=== PATIENT | female | born 1975 | race Caucasian/White ===

== ENCOUNTER 2018-01-20 06:21 | Day surgery (SDC) | payer OTHER ==
[~2018-01-20 06:21] MED LIST: Buffered Lidocaine 0.9% SYRIN* 5 ML/SYR SYRINGE INTRADERM ONE; Dexamethasone IV* 4 MG/ML 1 ML (4 MG) IV SLOW PU ONE; Famotidine IV* 10 MG/ML 2 ML (20 mg) IV ONE
[2018-01-20] MEDS ORDERED: Famotidine IV* 10 MG/ML 2 ML (20 mg) ONE (06:35)
[2018-01-20] MEDS ORDERED: Dexamethasone IV* 4 MG/ML 1 ML (4 MG) ONE (06:35)
[2018-01-20] MEDS ORDERED: fentaNYL* 50 MCG/ML 2 ML VIAL (100 MCG VIAL) ONE ×3 (07:17→08:24)
[2018-01-20] MEDS ORDERED: Midazolam* 1 MG/ML 2 ML VIAL (2 MG) ONE (07:17)
[2018-01-20] MEDS ORDERED: Propofol* 10 MG/ML 20 ML BTL IV PUSH ONE (07:48)
[2018-01-20] MEDS ORDERED: Ondansetron INJ* 2 MG/ML VIAL ONE (07:48)
[2018-01-20] MEDS ORDERED: Phenylephrine IV* 40 MCG/ML 10 ML SYRINGE ONE (07:48)
[2018-01-20] MEDS ORDERED: Ketorolac INJ* 30 MG/ML 1 ML VIAL ONE (07:48)
[2018-01-20] MEDS ORDERED: Naloxone* 0.4 MG/ML 1 ML VIAL IV PRN ×2 (08:10→08:33)
[2018-01-20] MEDS ORDERED: DiMENhydriNATE IV* 50 MG/ML VIAL IV PUSH PRN (08:10)
[2018-01-20] MEDS: fentaNYL* 50 MCG/ML 2 ML VIAL (100 MCG VIAL) IV PRN ×4 (08:16→08:31)
[2018-01-20] MEDS ORDERED: oxyCODONE/Acetamin 5/325 MG* TAB ONE (08:32)
[2018-01-20] MEDS ORDERED: HYDROmorphone INJ* 2 MG/ML CARPUJECT SYRINGE ONE (08:32)
[2018-01-20] MEDS ORDERED: HYDROmorphone INJ* 1 MG/ML CARPUJECT SYRINGE IV PRN (08:33)
[2018-01-20 10:02] VITALS: BP 100/54
--- NOTE | 2018-01-20 21:42 | OP ---
DATE OF OPERATION: 01/20/18 - [facility] DATE OF : 71 SURGEON: Rogerio Fernandes MD ANESTHESIA: General endotracheal. PRE-OP DIAGNOSIS: Menorrhagia. POST-OP DIAGNOSIS: Menorrhagia. OPERATIVE PROCEDURE: D and C, hysteroscopy and endometrial ablation. COMPLICATIONS: None. FINDINGS: On exam under anesthesia, the uterus was retroverted, sounded to 8.5 cm. The endocervix sounded to 2.5 cm, cavity length was 6 cm. The cavity appeared normal with no polyps or fibroids on hysteroscopy. DESCRIPTION OF PROCEDURE: The patient identified, procedure identified as a D and C, hysteroscopy and endometrial ablation. The patient was taken to the operating room and prepped and draped in the usual fashion in the dorsal lithotomy position under general anesthesia. Two single-toothed tenaculum's were placed on the anterior lip of the cervix. Again, the cervix was sounded to 8.5 cm. Endocervix was sounded to 2.5. The hysteroscope was inserted. The above findings were noted. The cervix was easily dilated up to a number #8 Hegar dilator. A sharp curette was inserted and sharp curettage performed until a gritty sensation was felt throughout the circumference. The NovaSure device was opened. The ray was checked. The device was placed in the uterine cavity with a 4.5 manipulated to about 5. The CO2 perforation test was performed and the device passed. The NovaSure device was enabled and with power setting of 165, NovaSure ablation took place for 48 seconds. At the end of the procedure, the hysteroscope was reinserted and a good ablation was noted throughout the cavity. All instruments removed from the vagina. Good hemostasis was verified and patient returned to recovery room in stable condition. All sponge and instrument counts were correct. [id number]/[facility] #: [id number] [facility]
== END 2018-01-20 10:30 | disposition home or self-care (01) ==
LOC: OR 06:21
PROVIDERS: ATTEND Obstetrics & Gynecology
DX: N92.0 Excessive and frequent menstruation with regular cycle (principal); Z85.41 Personal history of malignant neoplasm of cervix uteri; F41.9 Anxiety disorder, unspecified
CPT/HCPCS: 88305; A9270-GY; J1100; J1170; J1885; J2250; J2405; J2704; J3010

== ENCOUNTER 2019-07-24 19:40 | Emergency (ER) | payer OTHER ==
[2019-07-24 19:53] VITALS: BP 120/70
--- NOTE | 2019-07-24 20:03 | UC ---
Abdominal Pain Female HPI - HPI Summary HPI Summary: The patient is a 43-year-old female with a gradual onset of right lower quadrant abdominal pain that started yesterday. Her pain significantly worsened during the course of today. This afternoon her pain markedly intensified and has been associated with nausea and vomiting. She notes that the pain is worse when she walks or attempts to straighten up completely. She has not had any fever or chills. She denies any UTI symptoms. She does feel a little bloated. no back or flank pain. She has had a history of ovarian cysts. She still has her appendix and gallbladder. She denies any chest pain or shortness of breath. - History of Current Complaint Chief Complaint: UCAbdominalPain Stated Complaint: ABDOMINAL PAIN Time Seen by Provider: 07/24/19 19:51 Hx Obtained From: Patient Hx Last Menstrual Period: 06/30/13 Onset/Duration: Gradual Onset, Lasting Hours Timing: Constant Severity Initially: Mild Severity Currently: Severe Pain Intensity: 9 Pain Scale Used: 0-10 Numeric Location: Discrete At: RLQ Radiates: Yes Character: Colicy, Cramping Aggravating Factor(s): Movement Alleviating Factor(s): Nothing Associated Signs and Symptoms: Positive: Decreased Appetite, Nausea, Vomiting. Negative: Diaphoresis, Fever, Cough, Chest Pain, Dizzy, Back Pain, Constipation , Blood in Stool, Urinary Symptoms, Vaginal Bleeding, Vaginal Discharge, Diarrhea Female Torso: 1 - pain Allergies/Adverse Reactions: Allergies Allergy/AdvReac Type Severity Reaction Status Date / Time amoxicillin Allergy Intermediate Dizziness Verified 07/24/19 19:53 Home Medications: Home Medications Ascorbic Acid [Vitamin C] 1 tab PO DAILY 07/24/19 [History Confirmed 07/24/19] Calcium Carbonate [Calcium] 1 tab PO DAILY 07/24/19 [History Confirmed 07/24/19] Multivit-Min/Folic Acid/Biotin [Hair, Skin and Nails Caplet] 1 tab PO DAILY 05/05 [History Confirmed 07/24/19] Simethicone [Gas-X] 250 mg PO ONCE PRN 07/24/19 [History Confirmed 07/24/19] PMH/Surg Hx/FS Hx/Imm Hx Previously Healthy: Yes Cancer History: Cervical Cancer - Surgical History Surgical History: Yes Surgery Procedure, Year, and Place: 1996--TMJ SX. 1996--ECTOPIC / LAPRASCOPIC SX [facility] [place]. 1997 ACL LEFT RECONSTRUCTION SX [facility] [place] DR. WILLIS. LEEP PROCEDURES X 4 2007 CERVICAL CA [facility] [place]. 2011--LUMPECTOMY (BENIGN) RIGHT BREAST. TUBAL LIGATION 2004. LEFT INNER THIGH TUMOR REMOVED X 2 DR BENAVIDEZ 2005. RHINOPLASTY/SEPTOPLASTY 2006. RECONSTRUCTION SURGERY ON CHEEK BONES FROM ACCIDENT, 2013 - DR. KLEIN OFFICE. CERVICAL ABLASION DECEMBER 2017 - Family History Known Family History: Positive: Hypertension - Social History Alcohol Use: Weekly Alcohol Amount: 5-6 DRINKS WEEKLY Substance Use Type: None Smoking Status (MU): Never Smoked Tobacco Review of Systems All Other Systems Reviewed And Are Negative: Yes Constitutional: Positive: Negative Skin: Positive: Negative Eyes: Positive: Negative ENT: Positive: Negative Respiratory: Positive: Negative Cardiovascular: Positive: Negative Gastrointestinal: Positive: Abdominal Pain, Vomiting, Nausea Motor: Positive: Negative Neurovascular: Positive: Negative Musculoskeletal: Positive: Negative Neurological: Positive: Negative Psychological: Positive: Negative Physical Exam Triage Information Reviewed: Yes Appearance: Pain Distress, Thin Vital Signs: Initial Vital Signs Temp 98.3 F 07/24/19 19:48 Pulse 68 07/24/19 19:48 Resp 18 07/24/19 19:48 BP 120/70 07/24/19 19:48 Pulse Ox 100 07/24/19 19:48 Vital Signs Reviewed: Yes Eyes: Positive: Conjunctiva Clear ENT: Positive: Hearing grossly normal, Uvula midline. Negative: Nasal congestion, Nasal drainage, Tonsillar exudate, Trismus, Muffled voice, Hoarse voice Dental Exam: Normal Neck: Positive: Supple, Nontender, No Lymphadenopathy Respiratory: Positive: Lungs clear, Normal breath sounds, No respiratory distress, Respiratory distress Cardiovascular: Positive: RRR, No Murmur, Pulses Normal Abdomen Description: Positive: No Organomegaly, Guarding, McBurney's Point Tenderness, Other: - markedly tender RLQ, + heal tap. Negative: Nontender, CVA Tenderness (R), CVA Tenderness (L), Distended Bowel Sounds: Positive: Present Musculoskeletal: Positive: ROM Intact, No Edema Neurological: Positive: Alert, Muscle Tone Normal Psychological Exam: Normal Skin Exam: Normal Diagnostics - Laboratory Lab Results: UA-for WBC,-RBCs Abd Pain Female Course/Dx - Course Course Of Treatment: I suggested starting an IV and giving antiemetic and analgesic and transferring patient by EMS The patient refused She did desire zofran OTD but her left with her before it could be pulled from [facility] I explained to both and that she needed more work up than we could do here Discussed possiblity of appendicitis or ovarian cyst/gynecological issue - Differential Dx/Diagnosis Provider Diagnosis: Right lower quadrant abdominal pain Discharge ED - Sign-Out/Discharge Documenting (check all that apply): Patient Departure All imaging exams completed and their final reports reviewed: No Studies - Discharge Plan Condition: Guarded Disposition: TRANS HIGHER LVL OF CARE FAC Referrals: Yas Chavez MD [Primary Care Provider] - Additional Instructions: please go directly to the ER for evaluation of your right lower quadrant abdominal pain don't attempt to eat or drink enroute - Billing Disposition and Condition Condition: GUARDED Disposition: Trans Higher Lvl of Care Fac
[2019-07-24] MEDS ORDERED: Ondansetron ODT TAB* 4 MG PO ONE (20:15)
== END 2019-07-24 20:20 | disposition short-term general hospital (02) ==
LOC: UCEAST 19:40
DX: R10.31 Right lower quadrant pain (principal); R11.2 Nausea with vomiting, unspecified; N83.202 Unspecified ovarian cyst, left side; N83.201 Unspecified ovarian cyst, right side; Z85.41 Personal history of malignant neoplasm of cervix uteri; Z88.0 Allergy status to penicillin
CPT/HCPCS: 81003; 84702; 99212; A9270-GY; G0463

== ENCOUNTER 2019-07-24 20:34 | Emergency (ER) | payer OTHER ==
[2019-07-24 21:34] LABS: ABS Eosinophils 0.1 10^3/ul (0-0.6); ABS Lymphocytes 1.8 10^3/ul (1.0-4.8); ABS Monocytes 0.6 10^3/ul (0-0.8); ABS Neutrophils 8.5 10^3/ul (1.5-7.7); Eosinophil % 1.3 %; Hematocrit 39 % (35-47); Hemoglobin 13.8 g/dL (12.0-16.0); Lymphocyte % 16.5 %; Mean Corpuscular HGB Conc 35 g/dL (31-36); Mean Corpuscular Hemoglobin 31 pg (27-31); Mean Corpuscular Volume 90 fL (80-97); Mean Platelet Volume 7.4 fL (7.4-10.4); Platelet Count 227 10^3/uL (150-450); Red Blood Count 4.38 10^6 /uL (3.70-4.87); Red Cell Distribution Width 13 % (10-15); White Blood Count 11.1 10^3/uL (3.5-10.8)
[2019-07-24 21:52] LABS: ALT 24 U/L (7-52); AST 23 U/L (13-39); Albumin 4.3 g/dL (3.2-5.2); Albumin/Globulin Ratio 1.7 (1-3); Alkaline Phosphatase 31 U/L (34-104); Anion Gap 7 mmol/L (2-11); BUN/Creatinine Ratio 16.5 (8-20); Blood Urea Nitrogen 13 mg/dL (6-24); C Reactive Protein < 1.00 mg/L (<8.01); CO2 Carbon Dioxide 28 mmol/L (22-32); Calcium 9.5 mg/dL (8.6-10.3); Chloride 103 mmol/L (101-111); EGFR African American 95.2 (>60); EGFR Non-African American 78.7 (>60); Globulin 2.5 g/dL (2-4); Glucose 89 mg/dL (70-100); Potassium 3.7 mmol/L (3.5-5.0); Sodium 138 mmol/L (135-145); Total Protein 6.8 g/dL (6.4-8.9)
[2019-07-24] MEDS ORDERED: Morphine 4 MG/ML VIAL (1 ml) 4 MG/ML VIAL IV ONE (22:38)
[2019-07-24] MEDS ORDERED: NS 0.9% 1000 ML** 1,000 ML IV ONE (22:38)
[2019-07-24] MEDS ORDERED: Ondansetron INJ* 2 MG/ML VIAL IV ONE (22:38)
[2019-07-24] MEDS ORDERED: Iohexol 300* (CONTRAST) 10 ML SDV IV ONE (23:26)
--- NOTE | 2019-07-24 23:26 | ED ---
Abdominal Pain/Female - HPI Summary HPI Summary: Pt is a 43 y/o F presenting to the ED with a chief complaint of abdominal pain initially onset yesterday in the RLQ. Yesterday, the pain was mild enough that she went on a 5 mile run. She thought it may have been related to her menstrual cycle. As of today, the pain is much worse. She thought it could have been gas, but she experienced acute severe pain in the RLQ today. She is also feeling very full, bloated, and nauseous. She also reports vomiting. She denies diarrhea , constipation, vaginal bleeding or discharge, dysuria, hematuria, or hx of HTN or DM. Pt still has her appendix. - History of Current Complaint Chief Complaint: EDAbdPain Stated Complaint: ABD PAIN PER PT Time Seen by Provider: 07/24/19 22:27 Hx Obtained From: Patient Hx Last Menstrual Period: 06/30/13 ?: No - tubal ligation 2002 Onset/Duration: Gradual Onset, Lasting Days, Still Present, Worse Since - today Timing: Constant Severity Initially: Moderate Severity Currently: Severe Pain Intensity: 9 Pain Scale Used: 0-10 Numeric Location: Discrete At: RLQ Radiates: No Character: Cramping Aggravating Factor(s): Nothing Alleviating Factor(s): Nothing Associated Signs and Symptoms: Positive: Nausea, Vomiting. Negative: Constipation, Urinary Symptoms, Vaginal Bleeding, Vaginal Discharge, Diarrhea Allergies/Adverse Reactions: Allergies Allergy/AdvReac Type Severity Reaction Status Date / Time amoxicillin Allergy Intermediate Dizziness Verified 07/24/19 23:05 PMH/Surg Hx/FS Hx/Imm Hx Previously Healthy: Yes Endocrine/Hematology History: Denies: Hx Diabetes Cardiovascular History: Reports: Other Cardiovascular Problems/Disorders - HX OF SWELLING WITH TRAVEL IN BILATERAL FEET AND LEGS Denies: Hx Hypertension, Hx Pacemaker/ICD Respiratory History: Denies: Hx Asthma GI History: Reports: Hx Irritable Bowel - OCCASIONAL Denies: Other GI Disorders History: Denies: Hx Dialysis, Hx Renal Disease Musculoskeletal History: Reports: Hx Tendonitis - PATIENT STATES POSSIBLY 20 YEARS AGO, Other Musculoskeletal History - ALIGNMENT PROBLEMS WITH RIGHT HIP AND BACK Sensory History: Reports: Hx Contacts or Glasses - GLASSES FOR READING Denies: Hx Hearing Aid Opthamlomology History: Reports: Hx Contacts or Glasses - GLASSES FOR READING Psychiatric History: Reports: Hx Anxiety - uses meds prn Denies: Hx Panic Disorder - Cancer History Cancer Type, Location and Year: cervical ca Hx Chemotherapy: Yes - CERVICAL 2008 3 ROUNDS PLUS LEEPS Hx Radiation Therapy: No - Surgical History Surgery Procedure, Year, and Place: 1996--TMJ SX. 1996--ECTOPIC / LAPRASCOPIC SX [facility] [place]. 1997 ACL LEFT RECONSTRUCTION SX [facility] [place] DR. WILLIS. LEEP PROCEDURES X 4 2007 CERVICAL CA [facility] [place]. 2011--LUMPECTOMY (BENIGN) RIGHT BREAST. TUBAL LIGATION 2004. LEFT INNER THIGH TUMOR REMOVED X 2 DR BENAVIDEZ 2005. RHINOPLASTY/SEPTOPLASTY 2006. RECONSTRUCTION SURGERY ON CHEEK BONES FROM ACCIDENT, 2013 - DR. KLEIN OFFICE. CERVICAL ABLASION DECEMBER 2017 Hx Anesthesia Reactions: No Infectious Disease History: No Infectious Disease History: Denies: Traveled Outside the [place] in Last 30 Days - Family History Known Family History: Positive: Hypertension - Social History Alcohol Use: Weekly Alcohol Amount: drinks 5 out of 7 days, 2 drinks each time Hx Substance Use: No Substance Use Type: Reports: None Hx Tobacco Use: No Smoking Status (MU): Never Smoked Tobacco Review of Systems Positive: Abdominal Pain, Vomiting, Nausea. Negative: Diarrhea, Other - constipation Negative: dysuria, discharge - vaginal, hematuria, other - vaginal bleeding All Other Systems Reviewed And Are Negative: Yes Physical Exam - Summary Physical Exam Summary: Constitutional: Well-developed, Well-nourished, Alert. (-) Distressed Skin: Warm, Dry HENT: Normocephalic; Atraumatic Eyes: Conjunctiva normal Neck: Musculoskeletal ROM normal neck. (-) JVD, (-) Stridor, (-) Tracheal deviation Cardio: Rhythm regular, rate normal, Heart sounds normal; Intact distal pulses; Radial pulses are 2+ and symmetric. (-) Murmur Pulmonary/Chest wall: Effort normal. (-) Respiratory distress, (-) Wheezes, (-) Rales Abd: Soft, Diffuse tenderness, worse in the RLQ. (-) Distension, (-) Guarding, ( -) Rebound Musculoskeletal: (-) Edema Lymph: (-) Cervical adenopathy Neuro: Alert, Oriented x3 Psych: Mood and affect Normal Triage Information Reviewed: Yes Vital Signs On Initial Exam: Initial Vitals Temp Pulse Resp BP Pulse Ox 98.7 F 69 19 142/79 100 07/24/19 20:49 07/24/19 20:49 10/07/19 20:49 07/24/19 20:49 07/24/19 20:49 Vital Signs Reviewed: Yes Procedures - Sedation Patient Received Moderate/Deep Sedation with Procedure: No Diagnostics - Vital Signs Vital Signs Temp Pulse Resp BP Pulse Ox 07/24/19 22:47 18 07/24/19 20:49 98.7 F 69 19 142/79 100 - Laboratory Lab Results: Lab Results 07/24/19 07/24/19 07/24/19 Range/Units 21:27 21:27 21:27 WBC 11.1 H (3.5-10.8) 10^3/uL RBC 4.38 (3.70-4.87) 10^6 /uL Hgb 13.8 (12.0-16.0) g/dL Hct 39 (35-47) % MCV 90 (80-97) fL MCH 31 (27-31) pg MCHC 35 (31-36) g/dL RDW 13 (10-15) % Plt Count 227 (150-450) 10^3/uL MPV 7.4 (7.4-10.4) fL Neut % (Auto) 76.5 % Lymph % (Auto) 16.5 % [place] % (Auto) 5.4 % Eos % (Auto) 1.3 % Baso % (Auto) 0.3 % Absolute Neuts (auto) 8.5 H (1.5-7.7) 10^3/ul Absolute Lymphs (auto) 1.8 (1.0-4.8) 10^3/ul Absolute Monos (auto) 0.6 (0-0.8) 10^3/ul Absolute Eos (auto) 0.1 (0-0.6) 10^3/ul Absolute Basos (auto) 0.0 (0-0.2) 10^3/ul Absolute Nucleated RBC 0.0 10^3/ul Nucleated RBC % 0.0 Sodium 138 (135-145) mmol/L Potassium 3.7 (3.5-5.0) mmol/L Chloride 103 (101-111) mmol/L Carbon Dioxide 28 (22-32) mmol/L Anion Gap 7 (2-11) mmol/L BUN 13 (6-24) mg/dL Creatinine 0.79 (0.51-0.95) mg/dL Est GFR ( Amer) 95.2 (>60) Est GFR (Non-Af Amer) 78.7 (>60) BUN/Creatinine Ratio 16.5 (8-20) Glucose 89 (70-100) mg/dL Lactic Acid 0.8 (0.5-2.0) mmol/L Calcium 9.5 (8.6-10.3) mg/dL Total Bilirubin 0.60 (0.2-1.0) mg/dL AST 23 (13-39) U/L ALT 24 (7-52) U/L Alkaline Phosphatase 31 L (34-104) U/L C-Reactive Protein < 1.00 (<8.01) mg/L Total Protein 6.8 (6.4-8.9) g/dL Albumin 4.3 (3.2-5.2) g/dL Globulin 2.5 (2-4) g/dL Albumin/Globulin Ratio 1.7 (1-3) Lipase 19 (11.0-82.0) U/L Result Diagrams: 07/24/19 21:27 07/24/19 21:27 Lab Statement: Any lab studies that have been ordered have been reviewed, and results considered in the medical decision making process. - CT CT a/p CT Interpretation Completed By: Radiologist Summary of CT Findings: No acute findings. ED physician has reviewed this report. Re-Evaluation - Re-Evaluation 1st re-eval Re-Evaluation Time: 01:35 Change: Unchanged Comment: On further questioning, pt has had this pain on and off for the past 5 years. She has seen an [facility], GI physician, and the only thing that has worked has been physical therapy. Abdominal Pain Fem Course/Dx - Course Course Of Treatment: Patient is here with right lower quadrant pain. Patient's pain has been constant for 24 hours and is not consistent with ovarian torsion. Patient had blood work performed which was grossly unremarkable. Patient is CT scan which showed no abnormality. Upon reexamination, patient states that she's had this pain off and on for 5 years and has been seen by multiple doctors with no etiology. Patient was encouraged to follow up with her physical therapist as that wasn't only thing that helps her with her symptoms. - Diagnoses Provider Diagnoses: RLQ abdominal pain Discharge ED - Sign-Out/Discharge Documenting (check all that apply): Patient Departure - Discharge Plan Condition: Stable Disposition: HOME Prescriptions: Acetaminophen with Codeine [Acetaminophen-Cod #3 Tablet] 1 each PO Q8HR #12 tablet MDD 3 tablets Dicyclomine CAP* [Bentyl CAP*] 10 mg PO TID PRN #20 cap PRN Reason: abdominal cramping Ondansetron TAB* [Zofran 4 MG Tab*] 4 mg PO Q8HR PRN #12 tab PRN Reason: Vomiting Patient Education Materials: Abdominal Pain (ED) Referrals: Yas Chavez MD [Primary Care Provider] - Additional Instructions: Follow up with your primary care doctor in 1-3 days. Take Ibuprofen for pain as needed. Start taking your medications we prescribed to you here. Come back to the emergency department with any new or worsening symptoms. - Billing Disposition and Condition Condition: STABLE Disposition: Home - Attestation Statements Document Initiated by Joaquinibe: Yes Documenting Scribe: Lakshmi Wagner Provider For Whom Matilde is Documenting (Include Credential): Elpidio Dsouza MD. Scribe Attestation: Lakshmi Yanes, joaquinibed for Elpidio Dsouza MD. on 07/25/19 at 0437. Scribe Documentation Reviewed: Yes Provider Attestation: The documentation as recorded by the joaquinibLakshmi palomares accurately reflects the service I personally performed and the decisions made by Elpidio goodwin MD. Status of Scribe Document: Viewed
[2019-07-25] MEDS ORDERED: Morphine 4 MG/ML VIAL (1 ml) 4 MG/ML VIAL IV ONE (00:21)
[2019-07-25] MEDS ORDERED: Ketorolac INJ* 30 MG/ML 1 ML VIAL IV PUSH ONE (00:22)
[2019-07-25] MEDS ORDERED: HYDROcodone/ACETAMIN 5-325 MG* 1 TAB PO ONE (01:46)
[2019-07-25] MEDS ORDERED: Dicyclomine CAP* 10 MG PO ONE (01:46)
[2019-07-25 02:01] VITALS: BP 108/56
== END 2019-07-25 02:00 | disposition home or self-care (01) ==
LOC: ED 20:34
DX: R10.31 Right lower quadrant pain (principal); F41.9 Anxiety disorder, unspecified; Z98.51 Tubal ligation status; Z85.41 Personal history of malignant neoplasm of cervix uteri; Z79.899 Other long term (current) drug therapy; Z88.0 Allergy status to penicillin
CPT/HCPCS: 36415; 74177; 80053; 83605; 83690; 85025; 86140; 87040; 96361; 96374; 96375; 96376; 99283; A9270-GY; J1885; J2270; J2405; Q9967

== ENCOUNTER 2019-12-14 19:38 | Inpatient (IN) | payer OTHER ==
--- NOTE | 2019-12-14 19:55 | ED ---
Lower Extremity - HPI Summary HPI Summary: 44 year old F arriving via ambulance to [facility] complains of right lower extremity pain after slipping and falling on ice 50 minutes ago. EMS gave patient 200 mcg fentanyl en route with minimal relief. The patient rates the pain 10/10 in severity. Symptoms aggravated by nothing. Symptoms alleviated by nothing. Medications reviewed. Allergies noted. Home Medications Medication Instructions Recorded Confirmed Type Magnesium Oxide [Magnesium] 500 mg PO DAILY 03/15/19 07/24/19 History Ascorbic Acid [Vitamin C] 1 tab PO DAILY 07/24/19 07/24/19 History Calcium Carbonate [Calcium] 1 tab PO DAILY 07/24/19 07/24/19 History Multivit-Min/Folic Acid/Biotin 1 tab PO DAILY 07/24/19 07/24/19 History [Hair, Skin and Nails Caplet] Simethicone [Gas-X] 250 mg PO ONCE PRN 07/24/19 07/24/19 History Acetaminophen with Codeine 1 each PO Q8HR #12 tablet MDD 3 07/25/19 Rx [Acetaminophen-Cod #3 Tablet] tablets Dicyclomine CAP* [Bentyl CAP*] 10 mg PO TID PRN #20 cap 07/25/19 Rx Ondansetron TAB* [Zofran 4 MG Tab*] 4 mg PO Q8HR PRN #12 tab 07/25/19 Rx - History of Current Complaint Stated Complaint: R LEG PAIN PER EMS Time Seen by Provider: 12/14/19 19:48 Hx Obtained From: Patient Mechanism Of Injury: Other - slipping and falling on ice Onset/Duration: Still Present Severity Currently: Severe Pain Intensity: 10 Timing: Constant Aggravating Factor(s): Nothing Alleviating Factor(s): Nothing - Allergies/Home Medications Allergies/Adverse Reactions: Allergies Allergy/AdvReac Type Severity Reaction Status Date / Time amoxicillin Allergy Intermediate Dizziness Verified 07/24/19 23:05 Home Medications: Home Medications Magnesium Oxide [Magnesium] 500 mg PO DAILY 03/15/19 [History Confirmed 07/24/19 ] Ascorbic Acid [Vitamin C] 1 tab PO DAILY 07/24/19 [History Confirmed 07/24/19] Calcium Carbonate [Calcium] 1 tab PO DAILY 07/24/19 [History Confirmed 07/24/19] Multivit-Min/Folic Acid/Biotin [Hair, Skin and Nails Caplet] 1 tab PO DAILY 05/05 [History Confirmed 07/24/19] Simethicone [Gas-X] 250 mg PO ONCE PRN 07/24/19 [History Confirmed 07/24/19] Acetaminophen with Codeine [Acetaminophen-Cod #3 Tablet] 1 each PO Q8HR #12 tablet MDD 3 tablets 07/25/19 [Rx] Dicyclomine CAP* [Bentyl CAP*] 10 mg PO TID PRN #20 cap 07/25/19 [Rx] Ondansetron TAB* [Zofran 4 MG Tab*] 4 mg PO Q8HR PRN #12 tab 07/25/19 [Rx] PMH/Surg Hx/FS Hx/Imm Hx Endocrine/Hematology History: Denies: Hx Diabetes Cardiovascular History: Reports: Other Cardiovascular Problems/Disorders - HX OF SWELLING WITH TRAVEL IN BILATERAL FEET AND LEGS Denies: Hx Hypertension, Hx Pacemaker/ICD Respiratory History: Denies: Hx Asthma GI History: Reports: Hx Irritable Bowel - OCCASIONAL Denies: Other GI Disorders History: Denies: Hx Dialysis, Hx Renal Disease Musculoskeletal History: Reports: Hx Tendonitis - PATIENT STATES POSSIBLY 20 YEARS AGO, Other Musculoskeletal History - ALIGNMENT PROBLEMS WITH RIGHT HIP AND BACK Sensory History: Reports: Hx Contacts or Glasses - GLASSES FOR READING Denies: Hx Hearing Aid Opthamlomology History: Reports: Hx Contacts or Glasses - GLASSES FOR READING Neurological History: Reports: Hx Transient Ischemic Attacks (TIA) - 2009 Psychiatric History: Reports: Hx Anxiety - uses meds prn Denies: Hx Panic Disorder - Cancer History Cancer Type, Location and Year: cervical ca Hx Chemotherapy: Yes - CERVICAL 2007 3 ROUNDS PLUS LEEPS Hx Radiation Therapy: No - Surgical History Surgery Procedure, Year, and Place: 1996--TMJ SX. 1996--ECTOPIC / LAPRASCOPIC [place] [facility] [place]. 1997 ACL LEFT RECONSTRUCTION SX [facility] [place] DR. WILLIS. LEEP PROCEDURES X 4 2007 CERVICAL CA [facility] [place]. 2011--LUMPECTOMY (BENIGN) RIGHT BREAST. TUBAL LIGATION 2004. LEFT INNER THIGH TUMOR REMOVED X 2 DR BENAVIDEZ 2005. RHINOPLASTY/SEPTOPLASTY 2006. RECONSTRUCTION SURGERY ON CHEEK BONES FROM ACCIDENT, 2013 - DR. KLEIN OFFICE. CERVICAL ABLASION DECEMBER 2017 Hx Anesthesia Reactions: No Infectious Disease History: Denies: Traveled Outside the [place] in Last 30 Days - Family History Known Family History: Positive: Hypertension - Social History Alcohol Use: Weekly Alcohol Amount: drinks 5 out of 7 days, 2 drinks each time Hx Substance Use: No Substance Use Type: Reports: None Hx Tobacco Use: No Smoking Status (MU): Never Smoked Tobacco Review of Systems Negative: Fever Positive: Other - right lower extremity pain All Other Systems Reviewed And Are Negative: Yes Physical Exam - Summary Physical Exam Summary: Appearance: The patient is well-nourished in no acute distress and in no acute pain. Skin: The skin is warm and dry, and skin color reflects adequate perfusion. HEENT: The head is normocephalic and atraumatic. The pupils are equal and reactive. The conjunctivae are clear and without drainage. Nares are patent and without drainage. Mouth reveals moist mucous membranes, and the throat is without erythema and exudate. The external ears are intact. The ear canals are patent and without drainage. The tympanic membranes are intact. Neck: The neck is supple with full range of motion and non-tender. There are no carotid bruits. There is no neck vein distension. Respiratory: Chest is non-tender. Lungs are clear to auscultation and breath sounds are symmetrical and equal. Cardiovascular: Heart is regular rate and rhythm. There is no murmur or rub auscultated. There is no peripheral edema and pulses are symmetrical and equal. Abdomen: The abdomen is soft and non-tender. There are normal bowel sounds heard in all four quadrants and there is no organomegaly palpated. Musculoskeletal: There is no back tenderness noted. She has some deformity about 10-cm above the ankle on the right lower leg. Distal neurovascular and motor are in tact. There is good capillary refill. There is no peripheral edema or calf tenderness elicited. Neurological: Patient is alert and oriented to person, place and time. The patient has symmetrical motor strength in all four extremities. Cranial nerves are grossly intact. Deep tendon reflexes are symmetrical and equal in all four extremities. Psychiatric: The patient has an appropriate affect and does not exhibit any anxiety or depression. Triage Information Reviewed: Yes Vital Signs Reviewed: Yes Procedures - Sedation Patient Received Moderate/Deep Sedation with Procedure: No - Splinting Right Lower Extremity Hand-Made Type: orthoglass Splint: Posterior splint with u splint applied Pre-Proc Neuro Vasc Exam: normal Post-Proc Neuro Vasc Exam: normal Diagnostics - Laboratory Lab Statement: Any lab studies that have been ordered have been reviewed, and results considered in the medical decision making process. - Radiology Right lower extremity x-ray Radiology Interpretation Completed By: ED Physician - Comminuted fracture of her tibia and fibula that are mildly displaced. Pending official report. Lower Extremity Course/Dx - Course Course Of Treatment: Ms. Marcus slipped on the ice and shattered her right lower leg. She has a comminuted fracture of both her distal tibia as well as the fibula. Neurovascular motor intact. I spoke with Dr. Eugene who recommended a posterior splint with U supports. Patient was given pain medication and splint was applied. She continued to have significant pain subsequent to application of the splint although distal neurovascular motor were still intact. I spoke with Dr. Eugene again recommended that the hospitalist admit and they would try to do surgery tomorrow.. I spoke with Dr. Cano. - Diagnoses Provider Diagnoses: Closed right tibial fracture, Closed right fibular fracture - Physician Notifications Discussed Care Of Patient With: Martita Eugene Time Discussed With Above Provider: 08:10 Instructed by Provider To: Other - Dr. Eugene, orthopedics, states she will call back when she sees the x-ray. 2025 Dr. Euegne recommends a posterior splint and agrees to see patient tomorrow morning. 2141 Dr. Eugene is agreeable to admission to hospitalist. 2142 Dr. Cano, hospitalist, agrees to admit patient. Discharge ED - Sign-Out/Discharge Documenting (check all that apply): Patient Departure - Discharge Plan Condition: Stable Disposition: HOME Referrals: Martita Eugene MD [Medical Doctor] - 12/15/19 Additional Instructions: Call Dr. Eugene's office tomorrow 12/15/2019 in the morning to schedule a follow- up appointment. Return to the Emergency Department for new or worsening symptoms. - Billing Disposition and Condition Condition: STABLE Disposition: Home - Attestation Statements Document Initiated by Matilde: Yes Documenting Scribe: Makayla Wilson Provider For Whom Matilde is Documenting (Include Credential): Chu Guardado MD Scribe Attestation: Makayla Yanes, scribed for Chu Guardado MD on 12/14/19 at 2146. Scribe Documentation Reviewed: Yes Provider Attestation: The documentation as recorded by the Makayla kumari Steve accurately reflects the service I personally performed and the decisions made by me, Chu Guardado MD Status of Scribjelani Document: Viewed
[2019-12-14] MEDS ORDERED: HYDROmorphone INJ1* 1 MG/ML SYRINGE IV SLOW PU ONE (19:58)
[2019-12-14] MEDS ORDERED: fentaNYL* 50 MCG/ML 2 ML VIAL (100 MCG VIAL) IV SLOW PU ONE (20:33)
[2019-12-14] MEDS ORDERED: HYDROmorphone INJ* 0.5 MG/0.5 ML SYRINGE IV SLOW PU ONE (22:32)
[2019-12-14] MEDS ORDERED: Cyclobenzaprine TAB* 10 MG PO ONE (22:33)
[2019-12-14] MEDS ORDERED: NS 0.9% 1000 ML** 1,000 ML IV SCH (22:45)
[2019-12-14] MEDS: Ondansetron INJ* 2 MG/ML VIAL IV PRN (23:12)
[2019-12-14] MEDS ORDERED: HYDROmorphone INJ* 0.5 MG/0.5 ML SYRINGE IV PRN (23:19)
--- NOTE | 2019-12-15 00:10 | HP ---
AMENDED REPORT NOW INCLUDES DESIGNATED COSIGNER - ESIGNED BEFORE ADJUSTMENTS ADMISSION HISTORY AND PHYSICAL: DATE OF ADMISSION: 12/14/19 PRIMARY CARE PHYSICIAN: Dr. Chavez. PROVIDER: Marisa Baker NP ATTENDING PHYSICIAN: Dr. Cano.* (DICTATED BY MARISA BAKER NP) OTHER PROVIDER: Dr. Eugeen. CHIEF COMPLAINT: Right lower extremity pain. HISTORY OF PRESENT ILLNESS: This is a 44-year-old female with a past medical history significant for TIA, anxiety and cervical cancer, who came to the emergency room on 12/14/19 after a flipping and falling on some ice in the parking lot of [employer] lot in [place]. She had been stepping down from a curb and her right leg went out from underneath her and she knew immediately that it was broken because it angled off to the right side in a funny way. Never lost consciousness, denied head injury. Upon coming to the emergency room, labs were drawn, imaging was done, shown to have slightly displaced right tib/fib fracture. Dr. Eugene was consulted by the ED provider and the patient is to be admitted for possible surgery tomorrow. Hospitalists were consulted to admit the patient into the hospital. Patient was having frequent muscle spasms during my evaluation. Her pain level would spike to a 10/10 with minor position changes, patient stated she could feel the bones shift in her leg with movement, despite the presence of a splint. PAST MEDICAL HISTORY: Bilateral upper and lower extremity swelling with travelling, IBS, tendonitis, misalignment of her right hip and back, TIA, anxiety and cervical cancer. PAST SURGICAL HISTORY: Cervical ablation in 2017; cheek reconstruction, status post an accident in 2013; rhinoplasty/septoplasty in 2005; left inner thigh tumor removal x2; tubal ligation in 2004; right breast lumpectomy in 2011; TMJ surgery in 1996; ectopic with laparoscopic surgery in 1996; left ACL reconstruction in 1997; LEEP x4. HOME MEDICATIONS: 1. Ascorbic acid 1 tab p.o. daily. 2. Multivitamin 1 tab p.o. daily. 3. Magnesium oxide 500 mg p.o. daily. 4. Calcium carbonate 500 mg p.o. daily. ALLERGIES: AMOXICILLIN. FAMILY HISTORY: Her mother has breast cancer diagnosed in 2001 and currently in remission, thyroid disease. Sister has thyroid disease. Father has hypertension and prostate cancer. SOCIAL HISTORY: Denies any tobacco use. Drinks 5 out of 7 days, about 2 drinks at a time. She uses marijuana once a year. 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 and has 2 children. REVIEW OF SYSTEMS: A 12-point system review was performed, which was positive for right lower extremity pain and spasms. Negative for lightheadedness, dizziness, fever, chills, chest pain, shortness of breath, abdominal pain, nausea, vomiting, or issues moving her bowels or bladder. PHYSICAL EXAMINATION GENERAL: This is a well-developed woman seen resting in the stretcher, in mild distress. VITAL SIGNS: 98.2 Fahrenheit, 66 pulse, 20 respirations, 96% oxygen on room air , and 120/77 blood pressure. HEENT: Conjunctive pink and moist. PERRLA. EOMs intact. Oropharynx clear. Mucous membranes moist. NECK: Supple. RESPIRATORY: Lung sounds clear throughout bilaterally on room air. CARDIAC: S1, S2 present. Heart rate regular. No murmurs, gallops or rubs appreciated. ABDOMEN: Soft, nontender, nondistended. Positive bowel sounds x4. MUSCULOSKELETAL: Limited range of motion in right lower extremity due to pain, though cap refill is within 3 seconds. Able to wiggle toes on the right foot. Skin is cool to touch. NEUROLOGIC: Intermittent numbness and tingling to the left lower extremity. Otherwise, no focal deficits appreciated. PSYCH: She is alert and oriented x4. Thought content organized. SKIN: There is an Gilberto wrapped half cast to the right lower extremity. No other open areas appreciated. DIAGNOSTIC STUDIES: Right lower extremity x-ray was done, awaiting official radiologic read, though it is clear apparent there is a mildly displaced fracture of the tibia and fibula. PERTINENT LAB DATA: None for this admission. ASSESSMENT AND PLAN: My impression is that this is a 44-year-old female with a past medical history significant for cervical cancer, transient ischemic attack and anxiety, who was admitted on 12/14/19, status post fall resulting in a right tib/fib fracture with anticipation of surgery tomorrow with Dr. Eugene. 1. Right lower extremity tib/fib fracture. This is status post a mechanical fall. Denied any prodromal symptoms or loss of consciousness. Did not hit her head. She is to be n.p.o. after midnight. Dr. Eugene was spoken with by the ED , potential for surgery tomorrow. Her METS are greater than 4, RCRI score is 1 , which equates to 6% 30-day risk of , myocardial infarction, or cardiac arrest. I will order an EKG, otherwise she is medically optimized for surgery. Her pain control will consist of Flexeril, hydromorphone, and oxycodone. 2. History of transient ischemic attack, is not currently on any aspirin or blood thinners. 3. DVT prophylaxis: She is a low risk for DVT. We will apply SCD to the left lower extremity. I will anticipate that postsurgery she will need more aggressive anticoagulation. 4. Code status is full code. 5. Condition is fair. 6. Disposition is admit to inpatient to short-stay surgical. TIME SPENT: Time spent on the patient is about 60 minutes with 30 of that spent [id number]. MARISA BAKER, JOHN [id number]/[facility] #: [id number] [facility] MEDICAL CENTERHemal
[2019-12-15] MEDS: oxyCODONE TAB* 5 MG TAB PO PRN ×2 (00:14→08:15)
[2019-12-15] MEDS ORDERED: Ketorolac INJ* 30 MG/ML 1 ML VIAL IV ONE (01:50)
[2019-12-15] MEDS: HYDROmorphone INJ* 0.5 MG/0.5 ML SYRINGE IV PRN ×10 (02:20→22:03)
[2019-12-15 05:32] LABS: ABS Lymphocytes 1.9 10^3/ul (1.0-4.8); ABS Monocytes 0.7 10^3/ul (0-0.8); ABS Neutrophils 5.9 10^3/ul (1.5-7.7); Eosinophil % 0.2 %; Hematocrit 36 % (35-47); Hemoglobin 12.9 g/dL (12.0-16.0); Lymphocyte % 22.5 %; Mean Corpuscular HGB Conc 36 g/dL (31-36); Mean Corpuscular Hemoglobin 32 pg (27-31); Mean Corpuscular Volume 89 fL (80-97); Mean Platelet Volume 8.1 fL (7.4-10.4); Nucleated Red Blood Cells % 0.1; Platelet Count 208 10^3/uL (150-450); Red Blood Count 4.04 10^6 /uL (3.70-4.87); Red Cell Distribution Width 13 % (10-15); White Blood Count 8.5 10^3/uL (3.5-10.8)
[2019-12-15 05:47] LABS: BUN/Creatinine Ratio 13.6 (8-20); Calcium 8.4 mg/dL (8.6-10.3); EGFR African American 83.7 (>60); EGFR Non-African American 69.2 (>60)
[2019-12-15] MEDS: Cyclobenzaprine TAB* 10 MG PO PRN ×2 (05:55→08:14)
[2019-12-15] MEDS: Ascorbic Acid TAB* 500 MG PO SCH (08:43)
[2019-12-15] MEDS: Calcium Carbonate TAB* 1250 MG (CALCIUM 500 MG) PO SCH (08:44)
[2019-12-15] MEDS: Magnesium Oxide TAB* 400 MG PO SCH (08:44)
[2019-12-15] MEDS: Multivitamins/Minerals TAB PO SCH (08:44)
--- NOTE | 2019-12-15 08:50 | CONS ---
ORTHOPEDIC CONSULTATION: DATE OF CONSULT: 12/15/19 - ROOM #[id number] Thank you for this orthopedic consultation. CHIEF COMPLAINT: Right tibia and fibular fracture. HISTORY OF PRESENT ILLNESS: Ms. Marcus is a 44-year-old female who fell on some ice on 12/14/19 while in a parking lot at [employer]. This is where she works. She was stepping down from a curb when she landed awkwardly on the right leg. She immediately had 10/10 severe sharp pain and an abnormal angular deformity. She was brought to [facility] and diagnosed with a closed comminuted distal tibia and fibular fracture. The patient was admitted to the hospitalist team because of uncontrolled pain and inability to be discharged to home safely. I am consulted for orthopedic fracture care. PAST MEDICAL HISTORY: IBS, tendonitis, TIA, anxiety, cervical cancer. PAST SURGICAL HISTORY: Cervical ablation, TMJ reconstruction, rhinoplasty, septoplasty, thigh excision of tumors, tubal ligation, right breast lumpectomy, laparoscopic surgery, left ACL reconstruction, LEEP x4. HOME MEDICATIONS: 1. Multivitamin p.o. daily. 2. Calcium carbonate 500 mg p.o. daily. 3. Magnesium oxide 500 mg p.o. daily. 4. Ascorbic acid 1 tablet p.o. daily. ALLERGIES: AMOXICILLIN. FAMILY HISTORY: Maternal breast cancer and thyroid disease. Paternal hypertension and prostate cancer. 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 No tobacco use. Approximately 2 alcoholic beverages per day. Does use marijuana minimally. Normally an independent ambulator. REVIEW OF SYSTEMS: Fourteen systems reviewed with the patient today, positive for right leg pain. Negative for fevers, chills, chest pain, shortness of breath. Otherwise, the patient reports review of systems is negative or not relevant. PHYSICAL EXAM: General: The patient is a well-nourished female in no apparent distress. Alert and oriented x3. Pleasant mood, appropriate affect. Vitals: Temperature 98, pulse of 50, blood pressure 92/53. HEENT: Atraumatic and normocephalic. Pupils are equal and reactive to light. Heart: S1 and S2. No murmurs, rubs, or gallops. Lungs: Clear to auscultation in all lung kong. Abdomen: Soft, nontender, and nondistended. Bowel sounds in 4 quadrants. Bilateral upper extremities: The patient's skin is intact. Full range of motion with no instability or bony tenderness to palpation. 2+ palpable radial pulses. Right lower extremity: The patient has a long leg splint. Her toes have less than 3 seconds capillary refill. She can flex and extend all toes with some mild pain. Minimal swelling in the foot or thigh. Left lower extremity: The patient's skin is intact. She has full motion without knee instability or bony tenderness to palpation. 2+ palpable DP pulse. RADIOGRAPHS: Radiographs of the right tib/fib show a distal tibia and fibular fracture with displacement and comminution. ASSESSMENT AND PLAN: Ms. Marcus is a 44-year-old female status post fall with a closed comminuted and displaced right tibia and fibular fracture. The patient and I discussed that she was admitted for pain control and inability to return home. She could have been treated as an outpatient and is not an urgent surgical case. Of course, since the patient is admitted, we will try to expedite her care. Dr. Mcgrath from Orthopedics, my colleague, has agreed to assume care of this patient. He will be seeing her today to discuss possible options for surgical fixation of the fractures. For now, she will be in the long leg splint with elevation and ice. She will nonweightbearing in the right lower extremity. She should have p.r.n. pain medication and a bowel regimen. Per the hospitalist note, she has been cleared for surgery, but will have an EKG and some labs. Orthopedics will follow along and expedite her care in any way we can. [id number]/[facility] #: [id number] SUSANNA
[2019-12-15] MEDS ORDERED: Diazepam TAB(*) 5 MG PO PRN (10:39)
--- NOTE | 2019-12-15 16:43 | PN ---
Subjective Date of Service: 12/15/19 Interval History: Feels leg is more swollen Pain better controlled but still present Objective Active Medications: Acetaminophen (Tylenol Tab*) 650 mg PO Q4H PRN PRN Reason: MILD PAIN or TEMP > 100.4 Ascorbic Acid (Vitamin C Tab*) 1,000 mg PO DAILY [facility] Last Admin: 12/15/19 08:43 Dose: Not Given Calcium Carbonate (Calcium Carbonate Tab*) 500 mg PO DAILY [facility] Last Admin: 12/15/19 08:44 Dose: Not Given Diazepam (Valium Tab(*)) 5 mg PO Q6H PRN PRN Reason: anxiety or muscle spasms Hydromorphone HCl (Dilaudid Inj*) 0.5 mg IV Q2H PRN PRN Reason: PAIN - SEVERE Last Admin: 12/15/19 15:29 Dose: 0.5 mg Magnesium Oxide (Magox 400 Tab*) 400 mg PO DAILY [facility] Last Admin: 12/15/19 08:44 Dose: Not Given Multivitamins/Minerals (Theragran/Minerals Tab*) 1 tab PO DAILY [facility] Last Admin: 12/15/19 08:44 Dose: Not Given Ondansetron HCl (Zofran Inj*) 4 mg IV Q4H PRN PRN Reason: NAUSEA/VOMITING Last Admin: 12/14/19 23:12 Dose: 4 mg Oxycodone HCl (Roxycodone Tab*) 10 mg PO Q4H PRN PRN Reason: PAIN - MODERATE Last Admin: 12/15/19 08:15 Dose: 10 mg Vital Signs - 8 hr 12/15/19 12/15/19 12/15/19 08:42 08:43 09:13 Temperature Pulse Rate Respiratory 20 20 22 Rate Blood Pressure (mmHg) O2 Sat by Pulse Oximetry 12/15/19 12/15/19 12/15/19 10:28 10:29 11:23 Temperature Pulse Rate Respiratory 18 20 20 Rate Blood Pressure (mmHg) O2 Sat by Pulse Oximetry 12/15/19 12/15/19 12/15/19 12:03 12:46 13:03 Temperature 98.0 F Pulse Rate 68 Respiratory 14 16 Rate Blood Pressure 87/53 120/60 (mmHg) O2 Sat by Pulse 95 Oximetry 12/15/19 12/15/19 12/15/19 13:38 14:33 15:13 Temperature Pulse Rate Respiratory 16 18 16 Rate Blood Pressure (mmHg) O2 Sat by Pulse Oximetry 12/15/19 15:29 Temperature Pulse Rate Respiratory 18 Rate Blood Pressure (mmHg) O2 Sat by Pulse Oximetry Oxygen Devices in Use Now: None Appearance: lying 30 deg, NAD Eyes: No Scleral Icterus, PERRLA Ears/Nose/Mouth/Throat: NL Teeth, Lips, Gums, Clear Oropharnyx Neck: NL Appearance and Movements; NL JVP Respiratory: Symmetrical Chest Expansion and Respiratory Effort, Clear to Auscultation Cardiovascular: RRR Abdominal: NL Sounds; No Tenderness; No Distention, No Hepatosplenomegaly Lymphatic: No Cervical Adenopathy Extremities: - - right leg elevated and wrapped Neurological: Alert and Oriented x 3 Result Diagrams: 12/15/19 04:59 12/15/19 04:59 Assess/Plan/Problems-Billing Assessment: 44 yo pw right tib/fib fracture - Patient Problems (1) Tibia/fibula fracture Comment: appreciate surgerical co-management possible surgery tomorrow (2) Pain Comment: diazepam dilaudid oxy (3) DVT (deep venous thrombosis) Comment: HSQ this evening then hold
[2019-12-15] MEDS: Diazepam TAB(*) 5 MG PO PRN ×2 (17:31→23:28)
[2019-12-15] MEDS ORDERED: Heparin VIAL(*) 5000 UNITS/ML VIAL (FIVE THOUSAND) SUBCUT ONE (22:00)
[2019-12-16] MEDS: HYDROmorphone INJ* 0.5 MG/0.5 ML SYRINGE IV PRN ×2 (00:04→02:28)
[2019-12-16] MEDS ORDERED: Ketorolac INJ* 30 MG/ML 1 ML VIAL IV PUSH ONE (04:12)
[2019-12-16] MEDS: HYDROmorphone INJ1* 1 MG/ML SYRINGE IV PRN ×6 (04:18→23:17)
[2019-12-16] MEDS: oxyCODONE TAB* 5 MG TAB PO PRN ×2 (05:04→21:12)
[2019-12-16] MEDS: Calcium Carbonate TAB* 1250 MG (CALCIUM 500 MG) PO SCH (08:58)
[2019-12-16] MEDS: Ascorbic Acid TAB* 500 MG PO SCH (08:58)
[2019-12-16] MEDS: Magnesium Oxide TAB* 400 MG PO SCH (08:59)
[2019-12-16] MEDS: Multivitamins/Minerals TAB PO SCH (08:59)
[2019-12-16] MEDS ORDERED: HYDROmorphone INJ1* 1 MG/ML SYRINGE IV SLOW PU ONE (11:05)
--- NOTE | 2019-12-16 11:13 | PN ---
Progress Note - Progress Note Date of Service: 12/16/19 SOAP: Subjective: Pt seen and examined at bedside. Anxiously awaiting surgery today. Vital Signs: Temp Pulse Resp BP Pulse Ox 97.7 F 59 18 105/49 97 12/16/19 07:38 12/16/19 07:38 12/16/19 09:56 12/16/19 07:38 12/16/19 07:38 Objective: A&O x3, NAD RLE splinted, Wiggles toes, sensation is intact to light touch Assessment: Right tib/fib fx Plan: To the OR today NPO
[2019-12-16] MEDS: Diazepam TAB(*) 5 MG PO PRN ×2 (11:16→17:58)
[2019-12-16] MEDS ORDERED: Propofol* 10 MG/ML 20 ML BTL ONE (12:03)
[2019-12-16] MEDS ORDERED: Lidocaine 2% PF * 5 ML VIAL ONE (12:03)
[2019-12-16] MEDS ORDERED: Midazolam* 1 MG/ML 2 ML VIAL (2 MG) ONE (12:31)
[2019-12-16] MEDS ORDERED: ceFAZolin 2 GM in NS PREMIX(*) 2 GM/100 ML BAG IVPB ONE (12:42)
--- NOTE | 2019-12-16 12:49 | PN ---
Progress Note - Progress Note Date of Service: 12/16/19 SOAP: Subjective: Met with the patient yesterday and then this morning. The patient had much pain yesterday, but with Valium and narcotics it was better controlled. Given her exam yesterday- NVID and no significant pain with passive or active ROM toes- I did not suspect nor need to rule out compartment syndrome. Objective: NAD RLE: - No pain with PROM toes - Toes warm, well perfused x-ray: R distal metadiaphyseal tib fib fractures, comminuted, displaced Selected Entries 12/16/19 11:57 Temperature 99.1 F Pulse Rate 81 Respiratory 18 Rate Blood Pressure 127/65 (mmHg) O2 Sat by Pulse 99 Oximetry Assessment: R distal metadiaphyseal tib fib fractures, comminuted, displaced Plan: - Discussed nonoperative and operative management. Opted for surgical management. - Discussed ORIF of tibia with IMN. Possible concomitant plating of fibular to aid in fracture site stability as needed. Plan for to the OR today for this procedure. - Discussed risks and potential complication of surgery.
[2019-12-16] MEDS ORDERED: Bupivacaine 0.5% SDV PF* 30ML VIAL ONE (13:02)
[2019-12-16] MEDS ORDERED: fentaNYL* 50 MCG/ML 2 ML VIAL (100 MCG VIAL) ONE ×2 (13:20→16:52)
[2019-12-16] MEDS ORDERED: Propofol* 500 MG/50 ML BTL ONE (13:41)
[2019-12-16] MEDS ORDERED: KETAMINE HCL* 50 MG/ML 10 ML VIAL ONE (13:42)
[2019-12-16] MEDS ORDERED: EPHEDrine (Pressors)* 50 MG/ML VIAL ONE ×3 (14:26→16:01)
[2019-12-16] MEDS ORDERED: Metoclopramide IV* 5 MG/ML 2 ML VIAL IV PRN (14:42)
[2019-12-16] MEDS ORDERED: oxyCODONE TAB* 5 MG TAB PO PRN (14:42)
[2019-12-16] MEDS ORDERED: Naloxone* 0.4 MG/ML 1 ML VIAL IV PRN (14:42)
[2019-12-16] MEDS ORDERED: Ondansetron INJ* 2 MG/ML VIAL ONE (14:43)
[2019-12-16] MEDS ORDERED: Ketorolac INJ* 30 MG/ML 1 ML VIAL ONE (14:43)
[2019-12-16] MEDS ORDERED: Acetaminophen IV 1GM/100ML * 100 ML ONE (14:44)
[2019-12-16] MEDS: fentaNYL* 50 MCG/ML 2 ML VIAL (100 MCG VIAL) IV PRN ×4 (16:52→17:14)
[2019-12-16] MEDS ORDERED: oxyCODONE TAB* 5 MG TAB ONE (17:00)
--- NOTE | 2019-12-16 17:17 | PN ---
Subjective Date of Service: 12/16/19 Interval History: Patient went to OR today for correction, ORIF of RT tib/fib fracture. She has been back in room for 1-2 hours. States pain is 10/10, like a vice on RT ankle/ LE. She had 1 mg dilaudid about 30 minutes ago w/o good effect. Family History: Unchanged from Admission Social History: Unchanged from Admission Past Medical History: Unchanged from Admission Objective Active Medications: Acetaminophen (Tylenol Tab*) 650 mg PO Q4H PRN PRN Reason: MILD PAIN or TEMP > 100.4 Ascorbic Acid (Vitamin C Tab*) 1,000 mg PO DAILY [facility] Last Admin: 12/16/19 08:58 Dose: Not Given Calcium Carbonate (Calcium Carbonate Tab*) 500 mg PO DAILY [facility] Last Admin: 12/16/19 08:58 Dose: Not Given Diazepam (Valium Tab(*)) 5 mg PO Q6H PRN PRN Reason: anxiety or muscle spasms Last Admin: 12/16/19 11:16 Dose: 5 mg Fentanyl Citrate (Fentanyl*) 25 mcg IV Q5M PRN PRN Reason: PAIN - MODERATE Last Admin: 12/16/19 17:14 Dose: 25 mcg Hydromorphone HCl (Dilaudid Inj1s*) 1 mg IV Q2H PRN PRN Reason: PAIN - SEVERE Last Admin: 12/16/19 09:56 Dose: 1 mg Magnesium Oxide (Magox 400 Tab*) 400 mg PO DAILY [facility] Last Admin: 12/16/19 08:59 Dose: Not Given Metoclopramide HCl (Reglan Iv*) 5 mg IV ONCE PRN PRN Reason: NAUSEA/VOMITING Multivitamins/Minerals (Theragran/Minerals Tab*) 1 tab PO DAILY [facility] Last Admin: 12/16/19 08:59 Dose: Not Given Naloxone HCl (Narcan*) 0.08 mg IV Q2M PRN PRN Reason: severe induced resp depression Ondansetron HCl (Zofran Inj*) 4 mg IV Q4H PRN PRN Reason: NAUSEA/VOMITING Last Admin: 12/14/19 23:12 Dose: 4 mg Oxycodone HCl (Roxycodone Tab*) 10 mg PO Q4H PRN PRN Reason: PAIN - MODERATE Last Admin: 12/16/19 05:04 Dose: 10 mg Oxycodone HCl (Roxycodone Tab*) 5 mg PO ONCE PRN PRN Reason: PAIN - MODERATE Last Admin: 12/16/19 17:07 Dose: 5 mg Vital Signs - 8 hr 12/16/19 12/16/19 12/16/19 11:16 11:57 12:14 Temperature 37.3 C Pulse Rate 81 Respiratory 20 18 18 Rate Blood Pressure 127/65 (mmHg) O2 Sat by Pulse 99 Oximetry 12/16/19 12/16/19 12/16/19 16:45 16:46 16:48 Temperature 37 C Pulse Rate 79 76 Respiratory 16 14 19 Rate Blood Pressure 114/67 (mmHg) O2 Sat by Pulse 99 96 Oximetry 12/16/19 12/16/19 12/16/19 16:50 16:52 16:55 Temperature Pulse Rate 76 72 Respiratory 13 16 10 Rate Blood Pressure 118/67 115/62 (mmHg) O2 Sat by Pulse 99 97 Oximetry Oxygen Devices in Use Now: None Appearance: Alert, severe distress Eyes: No Scleral Icterus Ears/Nose/Mouth/Throat: Clear Oropharnyx Neck: NL Appearance and Movements; NL JVP Respiratory: Symmetrical Chest Expansion and Respiratory Effort Cardiovascular: NL Sounds; No Murmurs; No JVD Extremities: - - RT leg in soft bandage and cast Neurological: Alert and Oriented x 3 Lines/Tubes/Other Access: Clean, Dry and Intact Peripheral IV Nutrition: Taking PO's Result Diagrams: 12/15/19 04:59 12/15/19 04:59 Assess/Plan/Problems-Billing Assessment: 44 yo pw right tib/fib fracture - Patient Problems (1) Tibia/fibula fracture Current Visit: Yes Status: Acute Priority: High Code(s): S82.209A - UNSP FRACTURE OF SHAFT OF UNSP TIBIA, INIT FOR CLOS FX; S82.409A - UNSP FRACTURE OF SHAFT OF UNSP FIBULA, INIT FOR CLOS FX SNOMED Code(s): 689883884 Comment: -Post-op day zero -Management per orthopedics. (2) Pain Current Visit: Yes Status: Acute Priority: Medium Code(s): R52 - PAIN, UNSPECIFIED SNOMED Code(s): 20124326 Comment: -Comanaged with orthopedic surgery -Will give 1.5 mg dilaudid X1 now, ortho MAMADOU has been paged by RN. (3) DVT (deep venous thrombosis) Current Visit: Yes Status: Acute Priority: Medium Code(s): I82.409 - ACUTE EMBOLISM AND THOMBOS UNSP DEEP VN UNSP LOWER EXTREMITY SNOMED Code(s): 315735387 Comment: -Advise SC lovenox or Eliquis post-op once surgeon comfortable Status and Disposition: inpatient
[2019-12-16] MEDS ORDERED: HYDROmorphone INJ* 0.5 MG/0.5 ML SYRINGE IV SLOW PU ONE (18:51)
[2019-12-16] MEDS ORDERED: HYDROmorphone INJ1* 1 MG/ML SYRINGE ONE (18:57)
[2019-12-16] MEDS ORDERED: Ketorolac INJ* 30 MG/ML 1 ML VIAL IV ONE (19:15)
[2019-12-16] MEDS: Ondansetron INJ* 2 MG/ML VIAL IV PRN (21:00)
[2019-12-16] MEDS: ceFAZolin 1 GM* X 3 DOSES POST-OP Q8H (AddVan) IVPB SCH ×2 (21:30)
[2019-12-17] MEDS: Diazepam TAB(*) 5 MG PO PRN ×3 (00:31→17:19)
[2019-12-17] MEDS ORDERED: Cyclobenzaprine TAB* 10 MG PO PRN (01:09)
[2019-12-17] MEDS: oxyCODONE TAB* 5 MG TAB PO PRN ×3 (02:16→13:46)
[2019-12-17] MEDS: HYDROmorphone INJ* 0.5 MG/0.5 ML SYRINGE IV PRN ×9 (02:56→21:34)
[2019-12-17] MEDS: ceFAZolin 1 GM* X 3 DOSES POST-OP Q8H (AddVan) IVPB SCH ×4 (05:00→13:48)
[2019-12-17] MEDS ORDERED: Gabapentin CAP(*) 300 MG PO ONE (05:27)
[2019-12-17] MEDS: Morphine TAB Extended Release (*) 30 MG TAB.ER PO SCH ×2 (09:20→21:33)
[2019-12-17] MEDS: Magnesium Oxide TAB* 400 MG PO SCH (09:49)
[2019-12-17] MEDS: Ascorbic Acid TAB* 500 MG PO SCH (09:50)
[2019-12-17] MEDS: Multivitamins/Minerals TAB PO SCH (09:50)
[2019-12-17] MEDS: Gabapentin CAP(*) 100 MG PO SCH ×3 (09:50→21:33)
[2019-12-17] MEDS: Enoxaparin(*) 40 MG/0.4 ML SYR SUBCUT SCH (09:51)
[2019-12-17] MEDS: Calcium Carbonate TAB* 1250 MG (CALCIUM 500 MG) PO SCH (09:51)
--- NOTE | 2019-12-17 12:59 | PN ---
Progress Note - Progress Note Date of Service: 12/17/19 SOAP: Subjective: Pt seen and examined sitting in a chair. Complains of pain in the RLE with a lot of cramping in the hip. Per nursing has been very difficult to keep comfortable. Denies CP, SOB, F/C. Vital Signs: Temp Pulse Resp BP Pulse Ox 99.4 F 89 16 111/56 99 12/17/19 07:20 12/17/19 07:20 12/17/19 11:33 12/17/19 07:20 12/17/19 07:20 Laboratory Last Values WBC 8.5 10^3/uL (3.5-10.8) 12/15/19 04:59 RBC 4.04 10^6 /uL (3.70-4.87) 12/15/19 04:59 Hgb 12.9 g/dL (12.0-16.0) 12/15/19 04:59 Hct 36 % (35-47) 12/15/19 04:59 MCV 89 fL (80-97) 12/15/19 04:59 MCH 32 pg (27-31) H 12/15/19 04:59 MCHC 36 g/dL (31-36) 12/15/19 04:59 RDW 13 % (10-15) 12/15/19 04:59 Plt Count 208 10^3/uL (150-450) 12/15/19 04:59 MPV 8.1 fL (7.4-10.4) 12/15/19 04:59 Neut % (Auto) 69.1 % 12/15/19 04:59 Lymph % (Auto) 22.5 % 12/15/19 04:59 [place] % (Auto) 8.1 % 12/15/19 04:59 Eos % (Auto) 0.2 % 12/15/19 04:59 Baso % (Auto) 0.1 % 12/15/19 04:59 Absolute Neuts (auto) 5.9 10^3/ul (1.5-7.7) 12/15/19 04:59 Absolute Lymphs (auto) 1.9 10^3/ul (1.0-4.8) 12/15/19 04:59 Absolute Monos (auto) 0.7 10^3/ul (0-0.8) 12/15/19 04:59 Absolute Eos (auto) 0.0 10^3/ul (0-0.6) 12/15/19 04:59 Absolute Basos (auto) 0.0 10^3/ul (0-0.2) 12/15/19 04:59 Absolute Nucleated RBC 0.0 10^3/ul 12/15/19 04:59 Nucleated RBC % 0.1 12/15/19 04:59 Sodium 139 mmol/L (135-145) 12/15/19 04:59 Potassium 4.0 mmol/L (3.5-5.0) 12/15/19 04:59 Chloride 107 mmol/L (101-111) 12/15/19 04:59 Carbon Dioxide 27 mmol/L (22-32) 12/15/19 04:59 Anion Gap 5 mmol/L (2-11) 12/15/19 04:59 BUN 12 mg/dL (6-24) 12/15/19 04:59 Creatinine 0.88 mg/dL (0.51-0.95) 12/15/19 04:59 Est GFR ( Amer) 83.7 (>60) 12/15/19 04:59 Est GFR (Non-Af Amer) 69.2 (>60) 12/15/19 04:59 BUN/Creatinine Ratio 13.6 (8-20) 12/15/19 04:59 Glucose 96 mg/dL (70-100) 12/15/19 04:59 Calcium 8.4 mg/dL (8.6-10.3) L 12/15/19 04:59 Objective: A&O x3, moderate distress Assessment: s/p right tibial nail POD #1 Plan: OOB, PT/OT TTWB Pain control - Started long acting morphine DVT prophylaxis - Lovenox Will D/C home when pain is under control likely 12/17
[2019-12-17] MEDS ORDERED: Polyethylene Glycol 3350 BTL* 238 GM BTL PO ONE (17:05)
[2019-12-17] MEDS ORDERED: Polyethylene Glycol 3350* 17 GM PACKET PO PRN (17:21)
--- NOTE | 2019-12-17 17:45 | PN ---
Subjective Date of Service: 12/17/19 Interval History: Patient's pain in RLE has improved, switched from oxycodone to MSContin. She unwrapped some of the leg bandage herself earlier so she could massage leg. Family History: Unchanged from Admission Social History: Unchanged from Admission Past Medical History: Findings - IBS, anxiety Objective Active Medications: Acetaminophen (Tylenol Tab*) 650 mg PO Q4H PRN PRN Reason: MILD PAIN or TEMP > 100.4 Ascorbic Acid (Vitamin C Tab*) 1,000 mg PO DAILY [facility] Last Admin: 12/17/19 09:50 Dose: 1,000 mg Calcium Carbonate (Calcium Carbonate Tab*) 500 mg PO DAILY [facility] Last Admin: 12/17/19 09:51 Dose: 500 mg Cyclobenzaprine HCl (Flexeril Tab*) 10 mg PO TID PRN PRN Reason: SPASMS Last Admin: 12/17/19 02:11 Dose: 10 mg Diazepam (Valium Tab(*)) 5 mg PO Q6H PRN PRN Reason: anxiety and muscle spasm Last Admin: 12/17/19 17:19 Dose: 5 mg Docusate Sodium (Colace Cap*) 100 mg PO BID PRN PRN Reason: CONSTIPATION Enoxaparin Sodium (Lovenox(*)) 40 mg SUBCUT DAILY [facility] Last Admin: 12/17/19 09:51 Dose: 40 mg Gabapentin (Neurontin Cap(*)) 100 mg PO TID [facility] Last Admin: 12/17/19 14:20 Dose: 100 mg Hydromorphone HCl (Dilaudid Inj*) 0.5 mg IV Q2H PRN PRN Reason: PAIN - SEVERE Last Admin: 12/17/19 16:35 Dose: 0.5 mg Lactulose (Lactulose*) 30 ml PO QID PRN PRN Reason: CONSTIPATION Magnesium Hydroxide (Milk Of Magnesia Liq*) 30 ml PO Q6H PRN PRN Reason: CONSTIPATION Magnesium Oxide (Magox 400 Tab*) 400 mg PO DAILY [facility] Last Admin: 12/17/19 09:49 Dose: 400 mg Morphine Sulfate (Ms Contin(*)) 30 mg PO Q12H [facility] Last Admin: 12/17/19 09:20 Dose: 30 mg Multivitamins/Minerals (Theragran/Minerals Tab*) 1 tab PO DAILY [facility] Last Admin: 12/17/19 09:50 Dose: 1 tab Ondansetron HCl (Zofran Inj*) 4 mg IV Q4H PRN PRN Reason: NAUSEA/VOMITING Last Admin: 12/16/19 21:00 Dose: 4 mg Oxycodone HCl (Roxycodone Tab*) 10 mg PO Q4H PRN PRN Reason: PAIN - MODERATE Last Admin: 12/17/19 13:46 Dose: 10 mg Polyethylene Glycol/Electrolytes (Miralax (17 Gm Dose Bhavin)) 17 gm PO DAILY PRN PRN Reason: CONSTIPATION Vital Signs - 8 hr 12/17/19 12/17/19 12/17/19 11:33 11:40 13:46 Temperature 36.3 C Pulse Rate 77 Respiratory 16 12 16 Rate Blood Pressure 96/54 (mmHg) O2 Sat by Pulse 94 Oximetry 12/17/19 12/17/19 12/17/19 14:21 15:35 16:30 Temperature 37.2 C Pulse Rate 77 Respiratory 14 16 Rate Blood Pressure 93/58 104/72 (mmHg) O2 Sat by Pulse 100 Oximetry Oxygen Devices in Use Now: None Appearance: alert, calm, talkative Ears/Nose/Mouth/Throat: NL Teeth, Lips, Gums Respiratory: Symmetrical Chest Expansion and Respiratory Effort, Clear to Auscultation Cardiovascular: NL Sounds; No Murmurs; No JVD, RRR Extremities: - - RLE in bandage from foot to upper thigh Neurological: Alert and Oriented x 3 Lines/Tubes/Other Access: Clean, Dry and Intact Peripheral IV Nutrition: Taking PO's Result Diagrams: 12/15/19 04:59 12/15/19 04:59 Assess/Plan/Problems-Billing Assessment: 44 yo woman right tib/fib fracture - Patient Problems (1) Tibia/fibula fracture Current Visit: Yes Status: Acute Priority: High Code(s): S82.209A - UNSP FRACTURE OF SHAFT OF UNSP TIBIA, INIT FOR CLOS FX; S82.409A - UNSP FRACTURE OF SHAFT OF UNSP FIBULA, INIT FOR CLOS FX SNOMED Code(s): 887090481 Comment: -Post-op day 1 -Management per orthopedics. -Patient asking about PT (2) Pain Current Visit: Yes Status: Acute Priority: Medium Code(s): R52 - PAIN, UNSPECIFIED SNOMED Code(s): 07724927 Comment: -Comanaged with orthopedic surgery -Agree with plan for pain, and possible DC tomorrow -Has good bowel regimen (3) DVT (deep venous thrombosis) Current Visit: Yes Status: Acute Priority: Medium Code(s): I82.409 - ACUTE EMBOLISM AND THOMBOS UNSP DEEP VN UNSP LOWER EXTREMITY SNOMED Code(s): 803891842 Comment: - SC lovenox Status and Disposition: inpatient, ?DC tomorrow
[2019-12-17] MEDS: Docusate CAP* 100 MG PO PRN (21:33)
[2019-12-17] MEDS: Magnesium Hydroxide LIQ* 30 ML UDC PO PRN (21:34)
--- NOTE | 2019-12-17 22:00 | OP ---
OPERATIVE REPORT: DATE OF OPERATION: 12/16/19 DATE OF : 71 SURGEON: Jett Mcgrath MD. [place] ADMINISTRATOR: MAMADOU Segundo A physician assistant scientist was required for the length of the procedure for assistance with patient positi oning, retraction, instrumentation, and closure. ANESTHESIOLOGIST: Dr. Sonali You ANESTHESIA: General sedation, spinal anesthesia. PRE-OP DIAGNOSES: 1. Right tibial shaft fracture. 2. Right fibular shaft fracture. POST-OP DIAGNOSES: 1. Right tibial shaft fracture. 2. Right fibular shaft fracture. PROCEDURES: 1. Open reduction internal fixation, right tibial shaft fracture with intramedullary nail. 2. Closed reduction, right fibular shaft fracture. ANTIBIOTICS: Ancef 2 g IV. IV FLUIDS: See anesthesia note. SKIN TO SKIN TIME: Approximately 136 minutes. TOURNIQUET TIME: Approximately 30 minutes at 300 mmHg, dropped prior to canal reaming. SPECIMEN: None. IMPLANTS: [place] right tibial nail size 9 mm x 360 mm. Proximal screws 5 x 37.5 and 5 x 45 mm, dis andry screws 5 x 47.5 mm and 5 x 37.5 mm. End cap plus 10 mm. COMPLICATIONS: None. ESTIMATED BLOOD LOSS: Minimal. INDICATIONS FOR PROCEDURE: The patient is a 44-year-old woman, who works at [employer], who fell on , late while in the parking lot at [employer]. Seen by one of my partners on 12/15/19. I met the patient on 12/15/19 and we scheduled surgery for the 12/16/19. The patient's preoperative course was remarkable for her having a significant pain. This was controll ed with Flexeril followed by Valium for the muscle spasm and anxiety component along with narcotics. This was successful in lessening somewhat her preoperative pain. There was no concern about compart ment syndrome preoperatively as the patient had no pain whatsoever with passive range of motion of to es, and was even able to actively range the toes without significant discomfort. Sensation was fully intact to foot as well. Discussed nonoperative and operative treatment. The patient preferred operative treatment. Discusse d operative treatment, which would be intramedullary nail of the tibia. I was concerned about the st ability of the construct or the lack of a good fibular reduction, I would add a fibular plate fixatio n. Discussed risks and potential complications of surgery including standard risks, bleeding, infection, nerve or blood vessel injury. Described possible need for removal of nail. Discussed compartment s yndrome. DESCRIPTION OF PROCEDURE: In preoperative holding, the patient signed written consent. Operative ex tremity was marked in preoperative holding. The patient was taken back to the operative room. Spina l anesthetic was applied by anesthesiologist. The patient was sedated. The patient was laid supine on operating room table. [place] bump was placed under the right hemipel vis. The splint was removed. The patient's exam was remarkable for the almost entire lack of soft t issue swelling in the right lower extremity. She had no bruising and almost no swelling. Especially for the fracture with a lack of stability as hers it was very surprising not to see more soft tissue swelling. That was a good thing. The tourniquet was applied to the right proximal thigh. Right lower extremity was prepped with a scr ub and then a prep keeping the ankle stable. The right lower extremity was draped. A formal surgica l timeout was performed. I should state that prior to the prep and drape, I examined the contralateral left lower extremity. I did this because I was very concerned about matching rotation with this procedure. I measured how the foot lay, the amount of rotation with the knee extended and flexed. I measured a thigh foot angl e of approximately 10 degrees. I looked at how the foot lay again with the knee extended and flexed to re-create that exact rotational anatomy with the injured right lower extremity. Esmarch was applied and tourniquet was elevated. I made a midline longitudinal incision over the pat ellar tendon. I split the paratenon. I split the patellar tendon. Placed retractors. I placed a p in. I used C-arm imaging to determine the thickness of its location. I changed its position once. I then used a tissue protector and an entry reamer. I then passed the ball-tipped guidewire. We red uced at the fracture site. Bulk of guidewire ended up very centrally in the distal tibial scar. I w as very happy with its position and happy with the reduction at the fracture site. We then dropped the tourniquet. We next used flexible reamers starting at 8.5 mm. We reamed up to 10 .5 mm. There was excellent chatter. We then placed a 9 mm nail. It passed smoothly. We confirmed e xcellent reduction at the fracture site, excellent rotation of the right lower extremity. That was p laced into place. Using the guide jig proximally, I placed 2 locking screws through the nail proximally. One was media l to lateral, the other one was anteromedial to posterolateral. I used a small stab skin incision to place the medial to lateral screw. Again, I assessed the fracture site reduction. Held traction to improve the reduction. I would like the rotational position of the limb. At this point, we removed the triangle from the surgical field and we put a bone foam under the steri le drape. Using lateral x-ray images, we used the perfect saxman technique to place 2 locking screws from medial to lateral through the nail distally. These were placed bicortically. X-ray showed excellent reduction of both tibia and fibula. Excellent placement and length of all scr ews. We placed a 10 mm end cap proximally, which may be now just deep to the bone surface. Thorough irrigation of the knee skin incision site to remove all bone reaming articulate. It should be noted that the triangle was used throughout the case until the locking circles were plac ed to minimize any of pressure placed on the patella, a very atraumatic procedure. Closure of the patella with buried [id number] stitches using Ethibond 0 suture. Also, placed so me simple buried stitches using Vicryl 0 suture. Closure of the paratenon with running stitch using Vicryl 2-0 suture. Closure of the subcutaneous ti ssue and all skin incisions with buried simple stitches using Vicryl 2-0 suture. Closure of the skin with kee. I should state that after the tibial nail had been placed and locked with 2 screws proximally and dis tally, I then went about deciding whether or not to add a fibular plate. I found on my x-ray views t hat the fibula had excellent length and excellent reduction. Therefore, the fibular plate was not re quired to improve reduction. I stressed the lower leg with rotation varus and valgus and there was n o significant change in position of the nail tibia or fibula, so especially in a young patient like t his I did not think the fibular plating was required to maintain this reduction. There might have be en several degrees of valgus at the fibula fracture site, but that should heal remarkably without any issue. I therefore decided that no fibular plating was required and a closed reduction was sufficie nt. With the skin closed, I added Xeroform, 4x4's, ABDs, sterile Webril. I next placed a short leg splin t, with a posterior slab followed by sugar tong. This was using plaster rolls. This was overwrapped with an Gilberto bandage and the Gilberto bandage was wrapped up to proximal to the knee incision. The patient was awakened, extubated, and transferred to the PACU. In the PACU, the patient's spinal was already wearing off with cast sensation present per anesthesia. DISPOSITION: The patient was admitted for pain control and functional safety postoperatively. She w ill work with physical therapy toe touch weightbearing right lower extremity. She will receive 24 ho urs of IV antibiotics and then a short course of oral antibiotics. Oral and IV narcotics as needed f or pain control. She will receive Lovenox 40 mg subcu daily x2 weeks as DVT prophylaxis. I suspect given the patient's preoperative pain that she will continue to have postoperative pain more than ave rage. We will treat this with a muscle relaxant such as Valium or Flexeril along with the oral and I V narcotics. We will work on disposition for the patient. [id number]/[facility] #: [id number]
[2019-12-18] MEDS: oxyCODONE TAB* 5 MG TAB PO PRN ×2 (00:01→04:07)
[2019-12-18] MEDS: Diazepam TAB(*) 5 MG PO PRN ×3 (00:02→18:10)
[2019-12-18] MEDS: HYDROmorphone INJ* 0.5 MG/0.5 ML SYRINGE IV PRN ×3 (00:30→07:54)
[2019-12-18] MEDS: Gabapentin CAP(*) 100 MG PO SCH ×3 (09:31→20:07)
[2019-12-18] MEDS: Morphine TAB Extended Release (*) 30 MG TAB.ER PO SCH ×2 (09:32→21:51)
[2019-12-18] MEDS: Ketorolac INJ* 30 MG/ML 1 ML VIAL IV PUSH PRN ×2 (09:32→15:39)
[2019-12-18] MEDS: Docusate CAP* 100 MG PO PRN (09:36)
[2019-12-18] MEDS: Multivitamins/Minerals TAB PO SCH (09:37)
[2019-12-18] MEDS: Magnesium Oxide TAB* 400 MG PO SCH (09:37)
[2019-12-18] MEDS: Calcium Carbonate TAB* 1250 MG (CALCIUM 500 MG) PO SCH (09:38)
[2019-12-18] MEDS: Enoxaparin(*) 40 MG/0.4 ML SYR SUBCUT SCH (09:38)
[2019-12-18] MEDS: Ascorbic Acid TAB* 500 MG PO SCH (09:39)
--- NOTE | 2019-12-18 10:15 | PN ---
Progress Note - Progress Note Date of Service: 12/18/19 SOAP: Subjective: []Pt seen at bedside. She continues to have significant pain which is improved by elevating RLE. She has been using long acting morphine and IV dilaudid essentially around the clock. No CP, SOB, dizziness, nausea, abd pain. Objective: []A&O x3, NAD, periodic pain response with any movement RLE: SPlint CDI. active and passive ROM MTPs intact without pain. Sensation intact to light touch and capillary less than two seconds distally in exposed toes. Anterior lower leg compressible, rest of lower leg confined within splint. Left calf supple and nontender Assessment: s/p right tibial nail POD #2 Plan: OOB, PT/OT TTWB Pain control - cont long acting morphine, try to decrease IV dilaudid. Added IV toradol. Will consider pain consult if not much improved today bed tray + pillow allows more comfortable elevation Added bowel set- constipation at baseline in addition to narcotics DVT prophylaxis - Lovenox x 2 weeks post op If pain remains problematic she will need rehab. PMRU referral placed. Vital Signs Temp 98.4 F 12/18/19 08:03 Pulse 83 12/18/19 08:03 Resp 18 12/18/19 09:47 BP 102/57 12/18/19 08:03 Pulse Ox 98 12/18/19 08:03 Intake & Output 12/17/19 12/18/19 12/18/19 18:59 06:59 18:59 Intake Total 1835 1180 Output Total 2500 900 200 Balance -665 280 -200 Intake: IVPB 55 ABX - CEFAZOLIN 55 Oral 1780 1180 Output: Urine 2500 900 200 Other: # Bowel Movements 0 Laboratory Last Values WBC 8.5 10^3/uL (3.5-10.8) 12/15/19 04:59 RBC 4.04 10^6 /uL (3.70-4.87) 12/15/19 04:59 Hgb 12.9 g/dL (12.0-16.0) 12/15/19 04:59 Hct 36 % (35-47) 12/15/19 04:59 MCV 89 fL (80-97) 12/15/19 04:59 MCH 32 pg (27-31) H 12/15/19 04:59 MCHC 36 g/dL (31-36) 12/15/19 04:59 RDW 13 % (10-15) 12/15/19 04:59 Plt Count 208 10^3/uL (150-450) 12/15/19 04:59 MPV 8.1 fL (7.4-10.4) 12/15/19 04:59 Neut % (Auto) 69.1 % 12/15/19 04:59 Lymph % (Auto) 22.5 % 12/15/19 04:59 [place] % (Auto) 8.1 % 12/15/19 04:59 Eos % (Auto) 0.2 % 12/15/19 04:59 Baso % (Auto) 0.1 % 12/15/19 04:59 Absolute Neuts (auto) 5.9 10^3/ul (1.5-7.7) 12/15/19 04:59 Absolute Lymphs (auto) 1.9 10^3/ul (1.0-4.8) 12/15/19 04:59 Absolute Monos (auto) 0.7 10^3/ul (0-0.8) 12/15/19 04:59 Absolute Eos (auto) 0.0 10^3/ul (0-0.6) 12/15/19 04:59 Absolute Basos (auto) 0.0 10^3/ul (0-0.2) 12/15/19 04:59 Absolute Nucleated RBC 0.0 10^3/ul 12/15/19 04:59 Nucleated RBC % 0.1 12/15/19 04:59 Sodium 139 mmol/L (135-145) 12/15/19 04:59 Potassium 4.0 mmol/L (3.5-5.0) 12/15/19 04:59 Chloride 107 mmol/L (101-111) 12/15/19 04:59 Carbon Dioxide 27 mmol/L (22-32) 12/15/19 04:59 Anion Gap 5 mmol/L (2-11) 12/15/19 04:59 BUN 12 mg/dL (6-24) 12/15/19 04:59 Creatinine 0.88 mg/dL (0.51-0.95) 12/15/19 04:59 Est GFR ( Amer) 83.7 (>60) 12/15/19 04:59 Est GFR (Non-Af Amer) 69.2 (>60) 12/15/19 04:59 BUN/Creatinine Ratio 13.6 (8-20) 12/15/19 04:59 Glucose 96 mg/dL (70-100) 12/15/19 04:59 Calcium 8.4 mg/dL (8.6-10.3) L 12/15/19 04:59 <Brianda Grimaldo - Last Filed: 12/18/19 10:21> - Progress Note SOAP: Subjective: Appreciate input from Dr. Rojas. Pain is present right lower leg. Objective: RLE: - Dressing c/d/i - No pain with PROM/AROM toes - Toes warm, well-perfused, CR < 2 secs Assessment: POD 2 ORIF R tibia shaft fracture with IMN, closed reduction fibula Plan: - Pain control - Dispo planning - Lvx x 2 weeks - PT with TTWB - Follow up with me 10-14 days postop in clinic <Jett Mcgrath - Last Filed: 12/18/19 18:00>
[2019-12-18] MEDS ORDERED: NS 0.9% 500 ML* 500 ML IV ONE (11:00)
[2019-12-18] MEDS ORDERED: NS 0.9% 500 ML* 500 ML IV SCH (12:15)
[2019-12-18] MEDS ORDERED: oxyCODONE TAB* 5 MG TAB PO PRN ×2 (12:50→17:25)
--- NOTE | 2019-12-18 12:50 | PN ---
Subjective Date of Service: 12/18/19 Interval History: Patient has been dizzy, sleepy this morning. She still has significant pain in RT ankle area. No dyspnea, chest pain. Has received a bolus of 500 ml IV NS, and another is pending. Family History: Unchanged from Admission Social History: Unchanged from Admission Past Medical History: Unchanged from Admission - IBS, anxiety Objective Active Medications: Acetaminophen (Tylenol Tab*) 650 mg PO Q4H PRN PRN Reason: MILD PAIN or TEMP > 100.4 Ascorbic Acid (Vitamin C Tab*) 1,000 mg PO DAILY [facility] Last Admin: 12/18/19 09:39 Dose: 1,000 mg Calcium Carbonate (Calcium Carbonate Tab*) 500 mg PO DAILY [facility] Last Admin: 12/18/19 09:38 Dose: 500 mg Cyclobenzaprine HCl (Flexeril Tab*) 10 mg PO TID PRN PRN Reason: SPASMS Last Admin: 12/17/19 02:11 Dose: 10 mg Diazepam (Valium Tab(*)) 5 mg PO Q6H PRN PRN Reason: anxiety and muscle spasm Last Admin: 12/18/19 07:52 Dose: 5 mg Docusate Sodium (Colace Cap*) 100 mg PO BID PRN PRN Reason: CONSTIPATION Last Admin: 12/18/19 09:36 Dose: 100 mg Enoxaparin Sodium (Lovenox(*)) 40 mg SUBCUT DAILY [facility] Last Admin: 12/18/19 09:38 Dose: 40 mg Gabapentin (Neurontin Cap(*)) 100 mg PO TID [facility] Last Admin: 12/18/19 09:31 Dose: 100 mg Hydromorphone HCl (Dilaudid Inj*) 0.5 mg IV Q2H PRN PRN Reason: PAIN - SEVERE Last Admin: 12/18/19 07:54 Dose: 0.5 mg Sodium Chloride (Ns 0.9% 500 Ml*) 500 mls @ 0 mls/hr IV .BOLUS [facility] Stop: 12/18/19 13:15 Last Admin: 12/18/19 12:39 Dose: 999 mls/hr Ketorolac Tromethamine (Toradol Inj*) 30 mg IV PUSH Q6H PRN PRN Reason: PAIN - MODERATE Last Admin: 12/18/19 09:32 Dose: 30 mg Lactulose (Lactulose*) 30 ml PO QID PRN PRN Reason: CONSTIPATION Last Admin: 12/18/19 09:36 Dose: 30 ml Magnesium Hydroxide (Milk Of Magnesia Liq*) 30 ml PO Q6H PRN PRN Reason: CONSTIPATION Last Admin: 12/17/19 21:34 Dose: 30 ml Magnesium Oxide (Magox 400 Tab*) 400 mg PO DAILY [facility] Last Admin: 12/18/19 09:37 Dose: 400 mg Morphine Sulfate (Ms Contin(*)) 30 mg PO Q12H [facility] Last Admin: 12/18/19 09:32 Dose: 30 mg Multivitamins/Minerals (Theragran/Minerals Tab*) 1 tab PO DAILY [facility] Last Admin: 12/18/19 09:37 Dose: 1 tab Ondansetron HCl (Zofran Inj*) 4 mg IV Q4H PRN PRN Reason: NAUSEA/VOMITING Last Admin: 12/16/19 21:00 Dose: 4 mg Oxycodone HCl (Roxycodone Tab*) 10 mg PO Q4H PRN PRN Reason: PAIN - MODERATE Last Admin: 12/18/19 04:07 Dose: 10 mg Polyethylene Glycol/Electrolytes (Miralax (17 Gm Dose Bhavin)) 17 gm PO DAILY PRN PRN Reason: CONSTIPATION Vital Signs - 8 hr 12/18/19 12/18/19 12/18/19 08:03 09:31 09:32 Temperature 36.9 C Pulse Rate 83 Respiratory 16 18 18 Rate Blood Pressure 102/57 (mmHg) O2 Sat by Pulse 98 Oximetry 12/18/19 12/18/19 12/18/19 09:47 10:18 10:25 Temperature Pulse Rate 74 Respiratory 18 Rate Blood Pressure 92/47 82/47 (mmHg) O2 Sat by Pulse 95 Oximetry 12/18/19 12/18/19 12/18/19 10:29 11:15 11:27 Temperature 36.8 C Pulse Rate 69 Respiratory 18 16 Rate Blood Pressure 80/50 80/51 (mmHg) O2 Sat by Pulse 96 Oximetry Oxygen Devices in Use Now: None Appearance: Alert, pale Neck: NL Appearance and Movements; NL JVP Respiratory: Symmetrical Chest Expansion and Respiratory Effort Cardiovascular: NL Sounds; No Murmurs; No JVD Abdominal: NL Sounds; No Tenderness; No Distention Neurological: Alert and Oriented x 3, - - RT leg in bandage/cast Lines/Tubes/Other Access: Clean, Dry and Intact Peripheral IV Nutrition: Taking PO's Result Diagrams: 12/15/19 04:59 12/15/19 04:59 Assess/Plan/Problems-Billing Assessment: 44 yo woman right tib/fib fracture, post-op pain - Patient Problems (1) Tibia/fibula fracture Current Visit: Yes Status: Acute Priority: High Code(s): S82.209A - UNSP FRACTURE OF SHAFT OF UNSP TIBIA, INIT FOR CLOS FX; S82.409A - UNSP FRACTURE OF SHAFT OF UNSP FIBULA, INIT FOR CLOS FX SNOMED Code(s): 867619755 Comment: -Post-op day 2 -Management per orthopedics. -Candidate for PT (2) Pain Current Visit: Yes Status: Acute Priority: Medium Code(s): R52 - PAIN, UNSPECIFIED SNOMED Code(s): 54112361 Comment: -Comanaged with orthopedic surgery -BP low due to dilaudid, plan is for MSContin BID and IV ketorolac prn. Pain management to see. -Has good bowel regimen (3) DVT (deep venous thrombosis) Current Visit: Yes Status: Acute Priority: Medium Code(s): I82.409 - ACUTE EMBOLISM AND THOMBOS UNSP DEEP VN UNSP LOWER EXTREMITY SNOMED Code(s): 766759528 Comment: - [place] lovenox Status and Disposition: inpatient, ?DC tomorrow
[2019-12-18] MEDS: Acetaminophen TAB* 325 MG PO PRN ×2 (16:18→20:07)
--- NOTE | 2019-12-18 16:28 | CONSULT ---
Consult Consult: December 18, 2019 INPATIENT PAIN CONSULTATION Ragini Marcus is a 44 year old female. She has a medical history of cervical cancer treated with chemotherapy 11 years ago. On December 14, 2019, she was going to her car in "A" lot at [place], stepping off a curb, when she stepped on ice with her right foot and fell. Her leg was in immediate pain and looked misshapen and she called to onlookers who called 911. She was taken by ambulance to [facility]. X-rays revealed a comminuted, displaced angulated fracture of the right distal tibia and a comminuted displaced fracture of the right fibula. SHe was admitted and seen by orthopedics the next day. She was taken to the OR on November and underwent an ORIF of the right tibial shaft fracture with an IM nail and a closed reduction of the fibular fracture. Prior to surgery , she was having a lot of trouble with pain relief and that continued after her surgery. She was treated with IV dilaudid and PO oxycodone. Last night, MS Contin was added. She also had Valium added to her Flexeril. This am, her BP was 80/50. I was asked to see to assist in pain control. PAST MEDICAL HISTORY: Cervical cancer, as above Allergies Allergy/AdvReac Type Severity Reaction Status Date / Time amoxicillin Allergy Intermediate Dizziness Verified 07/24/19 23:05 Current Medications Acetaminophen (Tylenol Tab*) 650 mg PO Q4H PRN PRN Reason: MILD PAIN or TEMP > 100.4 Last Admin: 12/18/19 16:18 Dose: 650 mg Ascorbic Acid (Vitamin C Tab*) 1,000 mg PO DAILY [facility] Last Admin: 12/18/19 09:39 Dose: 1,000 mg Calcium Carbonate (Calcium Carbonate Tab*) 500 mg PO DAILY [facility] Last Admin: 12/18/19 09:38 Dose: 500 mg Cyclobenzaprine HCl (Flexeril Tab*) 10 mg PO TID PRN PRN Reason: SPASMS Last Admin: 12/17/19 02:11 Dose: 10 mg Diazepam (Valium Tab(*)) 5 mg PO Q6H PRN PRN Reason: anxiety and muscle spasm Last Admin: 12/18/19 07:52 Dose: 5 mg Docusate Sodium (Colace Cap*) 100 mg PO BID PRN PRN Reason: CONSTIPATION Last Admin: 12/18/19 09:36 Dose: 100 mg Enoxaparin Sodium (Lovenox(*)) 40 mg SUBCUT DAILY [facility] Last Admin: 12/18/19 09:38 Dose: 40 mg Gabapentin (Neurontin Cap(*)) 100 mg PO TID [facility] Last Admin: 12/18/19 13:40 Dose: Not Given Ketorolac Tromethamine (Toradol Inj*) 30 mg IV PUSH Q6H PRN PRN Reason: PAIN - MODERATE Last Admin: 12/18/19 15:39 Dose: 30 mg Lactulose (Lactulose*) 30 ml PO QID PRN PRN Reason: CONSTIPATION Last Admin: 12/18/19 09:36 Dose: 30 ml Magnesium Hydroxide (Milk Of Magnesia Liq*) 30 ml PO Q6H PRN PRN Reason: CONSTIPATION Last Admin: 12/17/19 21:34 Dose: 30 ml Magnesium Oxide (Magox 400 Tab*) 400 mg PO DAILY [facility] Last Admin: 12/18/19 09:37 Dose: 400 mg Morphine Sulfate (Ms Contin(*)) 30 mg PO Q12H [facility] Last Admin: 12/18/19 09:32 Dose: 30 mg Multivitamins/Minerals (Theragran/Minerals Tab*) 1 tab PO DAILY [facility] Last Admin: 12/18/19 09:37 Dose: 1 tab Ondansetron HCl (Zofran Inj*) 4 mg IV Q4H PRN PRN Reason: NAUSEA/VOMITING Last Admin: 12/16/19 21:00 Dose: 4 mg Oxycodone HCl (Roxycodone Tab*) 5 mg PO Q4H PRN PRN Reason: PAIN - SEVERE Polyethylene Glycol/Electrolytes (Miralax (17 Gm Dose Bhavin)) 17 gm PO DAILY PRN PRN Reason: CONSTIPATION SOCIAL HISTORY: drinks 5 times a week. Non smoker. Lives with her in a 2 story house with 6 steps to enter Vital Signs Temp Pulse Resp BP Pulse Ox 98.4 F 71 16 98/61 94 12/18/19 15:56 12/18/19 15:56 12/18/19 15:56 12/18/19 15:56 12/18/19 15:56 EXAM: GENERAL: No apparent distress LUNGS: Clear HEART: reg rhythm ABDOMEN: Soft EXTREMITIES: Right leg in splint, can wiggle toes NEUROLOGIC: awake, alert. Right toes sensation ok, can wiggle toes. Otherwise motor normal ASSESSMENT: 1. Right tibia/fibular fracture, S/P ORIF PLAN: The MS Contin has been helpful and this should continue. I will d/c the flexeril and cut the Valium to 2.5. I will change the oxycodone to Q3H and her BP should be ok. I will follow.
[2019-12-19] MEDS: Diazepam TAB(*) 5 MG PO PRN ×3 (04:01→17:27)
[2019-12-19] MEDS: Acetaminophen TAB* 325 MG PO PRN ×5 (04:01→21:43)
[2019-12-19] MEDS: Ketorolac INJ* 30 MG/ML 1 ML VIAL IV PUSH PRN (04:58)
[2019-12-19] MEDS: Ascorbic Acid TAB* 500 MG PO SCH (09:31)
[2019-12-19] MEDS: Magnesium Oxide TAB* 400 MG PO SCH (09:31)
[2019-12-19] MEDS: Gabapentin CAP(*) 100 MG PO SCH ×3 (09:32→21:43)
[2019-12-19] MEDS: Multivitamins/Minerals TAB PO SCH (09:32)
[2019-12-19] MEDS: Calcium Carbonate TAB* 1250 MG (CALCIUM 500 MG) PO SCH (09:34)
[2019-12-19] MEDS: Enoxaparin(*) 40 MG/0.4 ML SYR SUBCUT SCH (09:35)
[2019-12-19] MEDS ORDERED: Ketorolac TAB * 10 MG TAB PO PRN (10:20)
[2019-12-19] MEDS: Morphine TAB Extended Release (*) 30 MG TAB.ER PO SCH ×2 (10:37→22:41)
--- NOTE | 2019-12-19 10:48 | PN ---
Progress Note - Progress Note Date of Service: 12/19/19 SOAP: Subjective: [] Pt seen at bedside. She is much clearer today. Pain is still a problem rated 7/ 10 but she now considers it tolerable. Has been able to get oob to the restroom and is moving around in bed with more ease. Denies CP, SOB, dizziness, nausea. Objective: []A&O x3, NAD, appears comfortable today RLE: Splint CDI. active and passive ROM MTPs intact without pain. Sensation intact to light touch and capillary less than two seconds distally in exposed toes. Anterior lower leg compressible, rest of lower leg confined within splint. Left calf supple and nontender Assessment: s/p right tibial nail POD #3 Plan: OOB, PT/OT TTWB RLE DVT prophylaxis - Lovenox x 2 weeks post op Appreciate pain mgmt consult: Cont MS Contin. Valium 2.5 mg po Q 6. oxycodone Q3H. Toradol transitioned to PO today. If pain controlled and BP stable can DC home later today or tomorrow Vital Signs Temp 97.9 F 12/19/19 07:43 Pulse 72 12/19/19 07:43 Resp 16 12/19/19 10:37 BP 105/66 12/19/19 07:43 Pulse Ox 98 12/19/19 07:43 Intake & Output 12/18/19 12/19/19 12/19/19 18:59 06:59 18:59 Intake Total 860 1150 Output Total 1100 720 Balance -240 430 Intake: IV Fluids 500 NS (0.9%) 500 Oral 360 1150 Output: Urine 300 720 Liquid Stool 800 Other: Date of Last Bowel 12/18/19 Movement # Bowel Movements 1 Estimated Stool Amount Small Laboratory Last Values WBC 8.5 10^3/uL (3.5-10.8) 12/15/19 04:59 RBC 4.04 10^6 /uL (3.70-4.87) 12/15/19 04:59 Hgb 12.9 g/dL (12.0-16.0) 12/15/19 04:59 Hct 36 % (35-47) 12/15/19 04:59 MCV 89 fL (80-97) 12/15/19 04:59 MCH 32 pg (27-31) H 12/15/19 04:59 MCHC 36 g/dL (31-36) 12/15/19 04:59 RDW 13 % (10-15) 12/15/19 04:59 Plt Count 208 10^3/uL (150-450) 12/15/19 04:59 MPV 8.1 fL (7.4-10.4) 12/15/19 04:59 Neut % (Auto) 69.1 % 12/15/19 04:59 Lymph % (Auto) 22.5 % 12/15/19 04:59 [place] % (Auto) 8.1 % 12/15/19 04:59 Eos % (Auto) 0.2 % 12/15/19 04:59 Baso % (Auto) 0.1 % 12/15/19 04:59 Absolute Neuts (auto) 5.9 10^3/ul (1.5-7.7) 12/15/19 04:59 Absolute Lymphs (auto) 1.9 10^3/ul (1.0-4.8) 12/15/19 04:59 Absolute Monos (auto) 0.7 10^3/ul (0-0.8) 12/15/19 04:59 Absolute Eos (auto) 0.0 10^3/ul (0-0.6) 12/15/19 04:59 Absolute Basos (auto) 0.0 10^3/ul (0-0.2) 12/15/19 04:59 Absolute Nucleated RBC 0.0 10^3/ul 12/15/19 04:59 Nucleated RBC % 0.1 12/15/19 04:59 Sodium 139 mmol/L (135-145) 12/15/19 04:59 Potassium 4.0 mmol/L (3.5-5.0) 12/15/19 04:59 Chloride 107 mmol/L (101-111) 12/15/19 04:59 Carbon Dioxide 27 mmol/L (22-32) 12/15/19 04:59 Anion Gap 5 mmol/L (2-11) 12/15/19 04:59 BUN 12 mg/dL (6-24) 12/15/19 04:59 Creatinine 0.88 mg/dL (0.51-0.95) 12/15/19 04:59 Est GFR ( Amer) 83.7 (>60) 12/15/19 04:59 Est GFR (Non-Af Amer) 69.2 (>60) 12/15/19 04:59 BUN/Creatinine Ratio 13.6 (8-20) 12/15/19 04:59 Glucose 96 mg/dL (70-100) 12/15/19 04:59 Calcium 8.4 mg/dL (8.6-10.3) L 12/15/19 04:59
[2019-12-19] MEDS: Ketorolac TAB * 10 MG TAB PO PRN ×2 (11:17→17:28)
[2019-12-19] MEDS ORDERED: oxyCODONE TAB* 5 MG TAB PO ONE (13:17)
--- NOTE | 2019-12-19 13:26 | PN ---
Progress Note - Progress Note Date of Service: 12/19/19 Note: INPATIENT PAIN-PROGRESS Ragini visited. She was doing well this morning. She was doing so well, that she practiced hopping up stairs. After that, she feels like she has a great deal more pain in her right lower bowles. She did not put any weight down on her right foot. Current Medications Acetaminophen (Tylenol Tab*) 650 mg PO Q4H PRN PRN Reason: MILD PAIN or TEMP > 100.4 Last Admin: 12/19/19 09:33 Dose: 650 mg Ascorbic Acid (Vitamin C Tab*) 1,000 mg PO DAILY [facility] Last Admin: 12/19/19 09:31 Dose: 1,000 mg Calcium Carbonate (Calcium Carbonate Tab*) 500 mg PO DAILY [facility] Last Admin: 12/19/19 09:34 Dose: 500 mg Diazepam (Valium Tab(*)) 2.5 mg PO Q6H PRN PRN Reason: spasm Last Admin: 12/19/19 11:18 Dose: 2.5 mg Docusate Sodium (Colace Cap*) 100 mg PO BID PRN PRN Reason: CONSTIPATION Last Admin: 12/18/19 09:36 Dose: 100 mg Enoxaparin Sodium (Lovenox(*)) 40 mg SUBCUT DAILY [facility] Last Admin: 12/19/19 09:35 Dose: 40 mg Gabapentin (Neurontin Cap(*)) 100 mg PO TID [facility] Last Admin: 12/19/19 09:32 Dose: 100 mg Ketorolac Tromethamine (Toradol Tab *) 10 mg PO Q6H PRN PRN Reason: PAIN - MILD Stop: 12/24/19 10:59 Last Admin: 12/19/19 11:17 Dose: 10 mg Lactulose (Lactulose*) 30 ml PO QID PRN PRN Reason: CONSTIPATION Last Admin: 12/18/19 09:36 Dose: 30 ml Magnesium Hydroxide (Milk Of Magnesia Liq*) 30 ml PO Q6H PRN PRN Reason: CONSTIPATION Last Admin: 12/17/19 21:34 Dose: 30 ml Magnesium Oxide (Magox 400 Tab*) 400 mg PO DAILY [facility] Last Admin: 12/19/19 09:31 Dose: 400 mg Morphine Sulfate (Ms Contin(*)) 30 mg PO Q12H [facility] Last Admin: 12/19/19 10:37 Dose: 30 mg Multivitamins/Minerals (Theragran/Minerals Tab*) 1 tab PO DAILY [facility] Last Admin: 12/19/19 09:32 Dose: 1 tab Ondansetron HCl (Zofran Inj*) 4 mg IV Q4H PRN PRN Reason: NAUSEA/VOMITING Last Admin: 12/16/19 21:00 Dose: 4 mg Oxycodone HCl (Roxycodone Tab*) 5 mg PO Q3H PRN PRN Reason: PAIN - SEVERE Last Admin: 12/19/19 13:05 Dose: 5 mg Polyethylene Glycol/Electrolytes (Miralax (17 Gm Dose Bhavin)) 17 gm PO DAILY PRN PRN Reason: CONSTIPATION Vital Signs Temp Pulse Resp BP Pulse Ox 97.3 F 74 16 110/67 99 12/19/19 10:51 12/19/19 10:51 12/19/19 13:05 12/19/19 10:51 12/19/19 10:51 EXAM: LUNGS: Clear HEART: Reg rhythm ABDOMEN: Soft, +BS EXTREMITIES: Right leg in splint, able to wiggle toes NEUROLOGIC: sensation and movement intact except splinted right leg. Able to wiggle toes, otherwise RLE strength limited due to pain ASSESSMENT: 1. Right tibial fracture, S/P ORIF PLAN: As her blood pressure has stabilized, will increase her oxycodone back to 5-10 mg Q4 PRN. Will give a one time IV dilaudid order for her pain. This is likely increased pain due to her leg being dependent, but will follow
[2019-12-19] MEDS ORDERED: HYDROmorphone INJ* 0.5 MG/0.5 ML SYRINGE IV SLOW PU ONE (13:30)
[2019-12-19] MEDS ORDERED: oxyCODONE TAB* 5 MG TAB PO PRN (13:35)
--- NOTE | 2019-12-19 16:12 | PN ---
Subjective Date of Service: 12/19/19 Interval History: Patient did well this AM, then had increased RLE pain after PT. Had one dose IV dilaudid, after trying oral PRNs. Now off all IVs, on gabapentin, oral diclofenac, MSContin, oxycodone PRN. Wants to go home w/ PT tomorrow. Family History: Unchanged from Admission Social History: Unchanged from Admission Past Medical History: Unchanged from Admission - IBS, anxiety Objective Active Medications: Acetaminophen (Tylenol Tab*) 650 mg PO Q4H PRN PRN Reason: MILD PAIN or TEMP > 100.4 Last Admin: 12/19/19 13:35 Dose: 650 mg Ascorbic Acid (Vitamin C Tab*) 1,000 mg PO DAILY [facility] Last Admin: 12/19/19 09:31 Dose: 1,000 mg Calcium Carbonate (Calcium Carbonate Tab*) 500 mg PO DAILY [facility] Last Admin: 12/19/19 09:34 Dose: 500 mg Diazepam (Valium Tab(*)) 2.5 mg PO Q6H PRN PRN Reason: spasm Last Admin: 12/19/19 11:18 Dose: 2.5 mg Docusate Sodium (Colace Cap*) 100 mg PO BID PRN PRN Reason: CONSTIPATION Last Admin: 12/18/19 09:36 Dose: 100 mg Enoxaparin Sodium (Lovenox(*)) 40 mg SUBCUT DAILY [facility] Last Admin: 12/19/19 09:35 Dose: 40 mg Gabapentin (Neurontin Cap(*)) 100 mg PO TID [facility] Last Admin: 12/19/19 13:35 Dose: 100 mg Ketorolac Tromethamine (Toradol Tab *) 10 mg PO Q6H PRN PRN Reason: PAIN - MILD Stop: 12/24/19 10:59 Last Admin: 12/19/19 11:17 Dose: 10 mg Lactulose (Lactulose*) 30 ml PO QID PRN PRN Reason: CONSTIPATION Last Admin: 12/18/19 09:36 Dose: 30 ml Magnesium Hydroxide (Milk Of Magnesia Liq*) 30 ml PO Q6H PRN PRN Reason: CONSTIPATION Last Admin: 12/17/19 21:34 Dose: 30 ml Magnesium Oxide (Magox 400 Tab*) 400 mg PO DAILY [facility] Last Admin: 12/19/19 09:31 Dose: 400 mg Morphine Sulfate (Ms Contin(*)) 30 mg PO Q12H [facility] Last Admin: 12/19/19 10:37 Dose: 30 mg Multivitamins/Minerals (Theragran/Minerals Tab*) 1 tab PO DAILY [facility] Last Admin: 12/19/19 09:32 Dose: 1 tab Ondansetron HCl (Zofran Inj*) 4 mg IV Q4H PRN PRN Reason: NAUSEA/VOMITING Last Admin: 12/16/19 21:00 Dose: 4 mg Oxycodone HCl (Roxycodone Tab*) 5 mg PO Q4H PRN PRN Reason: PAIN - MODERATE Oxycodone HCl (Roxycodone Tab*) 10 mg PO Q4H PRN PRN Reason: PAIN - SEVERE Polyethylene Glycol/Electrolytes (Miralax (17 Gm Dose Bhavin)) 17 gm PO DAILY PRN PRN Reason: CONSTIPATION Vital Signs - 8 hr 12/19/19 12/19/19 12/19/19 11:18 11:35 13:05 Temperature Pulse Rate Respiratory 18 16 16 Rate Blood Pressure (mmHg) O2 Sat by Pulse Oximetry 12/19/19 12/19/19 12/19/19 13:22 13:35 13:43 Temperature Pulse Rate Respiratory 16 16 16 Rate Blood Pressure (mmHg) O2 Sat by Pulse Oximetry 12/19/19 15:19 Temperature 37.1 C Pulse Rate 79 Respiratory 16 Rate Blood Pressure 102/79 (mmHg) O2 Sat by Pulse 99 Oximetry Oxygen Devices in Use Now: None Appearance: alert, talkative Respiratory: Clear to Auscultation Cardiovascular: NL Sounds; No Murmurs; No JVD Extremities: - - R great toe well-perfused, RLE in bandage Neurological: Alert and Oriented x 3 Lines/Tubes/Other Access: Clean, Dry and Intact Peripheral IV Nutrition: Taking PO's Result Diagrams: 12/15/19 04:59 12/15/19 04:59 Assess/Plan/Problems-Billing Assessment: 44 yo woman right tib/fib fracture, post-op pain - Patient Problems (1) Tibia/fibula fracture Current Visit: Yes Status: Acute Priority: High Code(s): S82.209A - UNSP FRACTURE OF SHAFT OF UNSP TIBIA, INIT FOR CLOS FX; S82.409A - UNSP FRACTURE OF SHAFT OF UNSP FIBULA, INIT FOR CLOS FX SNOMED Code(s): 374621579 Comment: -Post-op day 3 -Management per orthopedics. -May need to avoid stairs with PT, seemed to exacerbate pain (2) Pain Current Visit: Yes Status: Acute Priority: Medium Code(s): R52 - PAIN, UNSPECIFIED SNOMED Code(s): 52571912 Comment: -Comanaged with orthopedic surgery and Dr. Rojas -BP stabilized. Pain management input appreciated -Has good bowel regimen (3) DVT (deep venous thrombosis) Current Visit: Yes Status: Acute Priority: Medium Code(s): I82.409 - ACUTE EMBOLISM AND THOMBOS UNSP DEEP VN UNSP LOWER EXTREMITY SNOMED Code(s): 687286756 Comment: - [place] lovenox Status and Disposition: inpatient, ?DC tomorrow
[2019-12-19] MEDS: Magnesium Hydroxide LIQ* 30 ML UDC PO PRN (22:41)
[2019-12-19] MEDS: oxyCODONE TAB* 5 MG TAB PO PRN (22:41)
[2019-12-20] MEDS: oxyCODONE TAB* 5 MG TAB PO PRN ×2 (03:42→08:05)
[2019-12-20] MEDS: Ondansetron INJ* 2 MG/ML VIAL IV PRN ×2 (04:32→08:05)
[2019-12-20] MEDS: Ketorolac TAB * 10 MG TAB PO PRN ×2 (05:08→11:20)
[2019-12-20] MEDS: Diazepam TAB(*) 5 MG PO PRN ×2 (09:01→15:31)
[2019-12-20] MEDS: Morphine TAB Extended Release (*) 30 MG TAB.ER PO SCH (09:02)
[2019-12-20] MEDS: Magnesium Oxide TAB* 400 MG PO SCH (09:38)
[2019-12-20] MEDS: Gabapentin CAP(*) 100 MG PO SCH ×2 (09:38→15:13)
[2019-12-20] MEDS: Ascorbic Acid TAB* 500 MG PO SCH (09:39)
[2019-12-20] MEDS: Enoxaparin(*) 40 MG/0.4 ML SYR SUBCUT SCH (09:40)
[2019-12-20] MEDS: Calcium Carbonate TAB* 1250 MG (CALCIUM 500 MG) PO SCH (09:40)
[2019-12-20] MEDS: Acetaminophen TAB* 325 MG PO PRN ×2 (11:24→15:30)
--- NOTE | 2019-12-20 13:38 | PN ---
Progress Note - Progress Note Date of Service: 12/20/19 SOAP: Subjective: []Pt seen at bedside. SHe feels well today, pain is well controlled and she desires DC home. Denies CP, SOB, dizziness, nausea or confusion. Objective: []Gen: A&O x3, NAD, appears comfortable RLE: Splint CDI. active and passive ROM MTPs intact without pain. Sensation intact to light touch and capillary less than two seconds distally in exposed toes. Anterior lower leg compressible, rest of lower leg confined within splint. Left calf supple and nontender Assessment: s/p right tibial nail POD #4 Plan: OOB, PT/OT TTWB RLE DVT prophylaxis - Lovenox x 2 weeks post op Appreciate pain mgmt consult: Cont MS Contin. Valium 2.5 mg po Q 6. oxycodone Q3H. Toradol PO Ready to DC from ortho standpoint. Patient confirms she is ready for DC home today Vital Signs Temp 97.8 F 12/20/19 08:27 Pulse 76 12/20/19 08:27 Resp 18 12/20/19 11:40 BP 116/65 12/20/19 09:08 Pulse Ox 95 12/20/19 03:36 Intake & Output 12/19/19 12/20/19 12/20/19 18:59 06:59 18:59 Intake Total 240 700 360 Output Total 3183 760 8973 Balance -860 -225 -1140 Intake: Oral 240 700 360 Output: Urine 5703 548 9407 Other: # Bowel Movements 0 Laboratory Last Values WBC 8.5 10^3/uL (3.5-10.8) 12/15/19 04:59 RBC 4.04 10^6 /uL (3.70-4.87) 12/15/19 04:59 Hgb 12.9 g/dL (12.0-16.0) 12/15/19 04:59 Hct 36 % (35-47) 12/15/19 04:59 MCV 89 fL (80-97) 12/15/19 04:59 MCH 32 pg (27-31) H 12/15/19 04:59 MCHC 36 g/dL (31-36) 12/15/19 04:59 RDW 13 % (10-15) 12/15/19 04:59 Plt Count 208 10^3/uL (150-450) 12/15/19 04:59 MPV 8.1 fL (7.4-10.4) 12/15/19 04:59 Neut % (Auto) 69.1 % 12/15/19 04:59 Lymph % (Auto) 22.5 % 12/15/19 04:59 [place] % (Auto) 8.1 % 12/15/19 04:59 Eos % (Auto) 0.2 % 12/15/19 04:59 Baso % (Auto) 0.1 % 12/15/19 04:59 Absolute Neuts (auto) 5.9 10^3/ul (1.5-7.7) 12/15/19 04:59 Absolute Lymphs (auto) 1.9 10^3/ul (1.0-4.8) 12/15/19 04:59 Absolute Monos (auto) 0.7 10^3/ul (0-0.8) 12/15/19 04:59 Absolute Eos (auto) 0.0 10^3/ul (0-0.6) 12/15/19 04:59 Absolute Basos (auto) 0.0 10^3/ul (0-0.2) 12/15/19 04:59 Absolute Nucleated RBC 0.0 10^3/ul 12/15/19 04:59 Nucleated RBC % 0.1 12/15/19 04:59 Sodium 139 mmol/L (135-145) 12/15/19 04:59 Potassium 4.0 mmol/L (3.5-5.0) 12/15/19 04:59 Chloride 107 mmol/L (101-111) 12/15/19 04:59 Carbon Dioxide 27 mmol/L (22-32) 12/15/19 04:59 Anion Gap 5 mmol/L (2-11) 12/15/19 04:59 BUN 12 mg/dL (6-24) 12/15/19 04:59 Creatinine 0.88 mg/dL (0.51-0.95) 12/15/19 04:59 Est GFR ( Amer) 83.7 (>60) 12/15/19 04:59 Est GFR (Non-Af Amer) 69.2 (>60) 12/15/19 04:59 BUN/Creatinine Ratio 13.6 (8-20) 12/15/19 04:59 Glucose 96 mg/dL (70-100) 12/15/19 04:59 Calcium 8.4 mg/dL (8.6-10.3) L 12/15/19 04:59
[2019-12-20] MEDS: Multivitamins/Minerals TAB PO SCH (13:40)
[2019-12-20 15:21] VITALS: BP 130/82
--- NOTE | 2019-12-20 16:21 | DS ---
Orthopedic Discharge Summary - Discharge Summary Date of Admission:12/14/19 Date of Discharge: 12/20/19 Date of Surgery: 12/17/19 Attending Orthopedic Provider: Dr Mcgrath Pre-operative Diagnosis: Right tib/fib fracture Operative Procedure: right tibial nail Disposition of Patient:home Home care vs Outpatient services: homecare Condition of Patient: stable Pain medication RX at discharge: see below, several DVT prophylaxis RX at discharge: lovenoc 40 mg sq x 2 weeks History: FRENCH LOVE is a 44 year old F with right tib/fib fracture Hospital Course: FRENCH was admitted to [facility] on 12/14/19. Patient underwent a right tibial nail on 12/17/19 without complication. She recovered briefly in the PACU and was transferred to the short stay surgical floor in stable condition. She struggled with pain control throughout her stay, Dr Rojas was consulted and pain control was achieved. She remained in a splint and was NVI throughout her post op course. On 12/20/19 her pain was well controlled, she met goals with PT and desired DC home. Home Medications Medication Instructions Recorded Confirmed Type Magnesium Oxide [Magnesium] 500 mg PO DAILY 03/15/19 12/14/19 History Ascorbic Acid [Vitamin C] 1 tab PO DAILY 07/24/19 12/14/19 History Calcium Carbonate [Calcium] 1 tab PO DAILY 07/24/19 12/14/19 History Multivit-Min/Folic Acid/Biotin 1 tab PO DAILY 07/24/19 12/14/19 History [Hair, Skin and Nails Caplet] Acetaminophen TAB* [Tylenol TAB*] 650 mg PO Q4H PRN tab 12/20/19 Rx Diazepam TAB(*) [Valium TAB(*)] 2.5 mg PO Q6H PRN #20 tab MDD 4 12/20/19 Rx Docusate CAP* [Colace Cap*] 100 mg PO BID PRN #90 cap 12/20/19 Rx Enoxaparin(*) [Lovenox(*)] 40 mg SUBCUT DAILY #10 syringe 12/20/19 Rx Ketorolac TAB * [Toradol TAB *] 10 mg PO Q6H PRN #30 tab 12/20/19 Rx Morphine TAB Extended Rel(*) [Ms 30 mg PO Q12H #6 tab.er MDD 2 12/20/19 Rx Contin(*)] oxyCODONE TAB* [Roxycodone TAB 5 5 mg PO Q4H PRN tab MDD 10 12/20/19 Rx mg*] oxyCODONE TAB* [Roxycodone TAB 5 10 mg PO Q4H PRN #50 tab MDD 12/20/19 Rx mg*] Discharge Instructions following Orthopedic Surgery: Activity: * Nonweightbearing operative extremity * Continue physical therapy and occupational therapy exercises as shown Wound care: * Keep dressing/ splint clean, dry and intact. Call Orthopedic office for: * Increased drainage * Redness * Increased pain * Fever Go to ER with shortness of breath or chest pain. Diet: * Regular diet * Increase fluids and fiber to prevent constipation. * Continue to use stool softeners, call office if no bowel motion within 48 hours. Medications See Home Medication List in your packet for medications that you should take after discharge. DVT Prophylaxis: Lovenox Dosin mg once a day for 2 weeks post op. Increases bleeding tendency Pain Meds: Muscle spasm: Diazepam TAB(*) [Valium TAB(*)] 2.5 mg PO Q6H PRN #20 tab Max of 4 per day Mild pain and inflammation: Ketorolac TAB * [Toradol TAB *] 10 mg PO Q6H PRN # 30 tab 12/20/19 Max of 4 per day Moderate pain: oxyCODONE TAB* [Roxycodone TAB 5 mg*] 5 mg PO Q4H as needed for moderate pain. If pain in severe take 2 tabs every 4 hours. Max of 10 tabs in one day. Hold for sedation and wean off as soon as pain allows Severe unrelenting pain: Morphine TAB Extended Rel(*) [Ms Contin(*)] 30 mg PO Q12H #6 tab.er Max of 2 per day, You should not need this after another couple of days. stop taking once pain is tolerable.Hold for sedation and wean off as soon as pain allows Elevate and ice for pain reduction FOLLOW UP: Follow up with [Ramila] Within [14 days post op], call for appointment Please call our office with any questions or concerns ([phone])
== END 2019-12-20 17:00 | disposition home or self-care (01) | DRG 313 ==
LOC: ED 19:38 → SSU 22:43
PROVIDERS: ADMIT Student in an Organized Health Care Education/Training Program; ATTEND Orthopaedic Surgery
PROC: 0QSJXZZ Reposition Right Fibula, External Approach (ICD-10-PCS; 2019-12-16)
PROC: 0QSG06Z Reposition Right Tibia with Intramedullary Internal Fixation Device, Open Approach (ICD-10-PCS; principal; 2019-12-16 10:00)
DX: S82.201A Unspecified fracture of shaft of right tibia, initial encounter for closed fracture (principal); S82.401A Unspecified fracture of shaft of right fibula, initial encounter for closed fracture; W00.0XXA Fall on same level due to ice and snow, initial encounter; K58.9 Irritable bowel syndrome, unspecified; F41.9 Anxiety disorder, unspecified; S89.101A Unspecified physeal fracture of lower end of right tibia, initial encounter for closed fracture; K59.00 Constipation, unspecified; Y92.481 Parking lot as the place of occurrence of the external cause; Z86.73 Personal history of transient ischemic attack (TIA), and cerebral infarction without residual deficits; Z85.41 Personal history of malignant neoplasm of cervix uteri; Z88.0 Allergy status to penicillin; Z79.899 Other long term (current) drug therapy
CPT/HCPCS: 36415; 76000; 80048; 85025; 93005; 96374; 96375; 99284; A9270-GY; C1713; J0690; J1170; J1644; J1650; J1885; J2250; J2405; J2704; J3010; J3490

== ENCOUNTER 2019-12-27 10:21 | Emergency (ER) | payer OTHER ==
--- OUTSIDE RECORDS SUMMARY | 2019-12-27 10:33 | XMS REPORT | Continuity of Care Document ---
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 [phone] Medicine Problems Description No Information Available Social History Type Date Description Comments Sex Unknown ETOH Use Currently consumes alcohol Tobacco Use Start: Unknown Patient has never smoked Smoking Status Reviewed: 12/25/19 Patient has never smoked Exercise Type/Frequency Exercises regularly Allergies, Adverse Reactions, Alerts Active Allergies Reaction Severity Comments Date Amoxicillin 12/25/2019 Medications Active Medications SIG Qnty Indications Ordering Date Provider Diazepam Take 1 tab by mouth 20tabs [facility] 12/26/2019 2mg Tablets every 6 hours as MD Ramila needed for spasm. MDD 4 Morphine Sulfate ER take 1 tab every 12 6caps [facility] 12/25/2019 hours as needed for MD Ramila 30mg Caps ER 24HR pain post-operatively Shower Chair 1 shower chair. Ht: 1units S82.251D [facility] 12/25/2019 69" Wt: 140lbs MD Ramila Oxycodone HCL 1 tab by mouth 42tabs [facility] 12/25/2019 5mg every 4-6 hours as MD Ramila Tablets needed for post operative pain Acetaminophen 2 tabs by mouth Unknown 325mg every 4 hours Tablets Diazepam 1 by mouth twice a Unknown 2mg Tablets day as needed anxiety Docusate Sodium 1 tab every 12 Unknown 100mg hours as needed for Capsules constipation Enoxaparin Sodium Unknown 40mg/0.4ML Solution Ketorolac take 1 by mouth Unknown Tromethamine every 6 hours x 5 10mg days. first dose Tablets given in or and tolerated well Immunizations Description No Information Available Vital Signs Date Vital Result Comment 12/25/2019 2:13pm Height 69 inches 5'9" Weight 140.00 lb Heart Rate 71 /min BP Systolic 112 mmHg BP Diastolic 80 mmHg Body Temperature 99.1 F Pain Level 7 BMI (Body Mass Index) 20.7 kg/m2 Results Description No Information Available Procedures Date Code Description Status 12/25/2019 43075 Short Leg Cast Completed 12/16/2019 26405 [place] Tibial Shaft FX W Or W/O Fibular FX W/Plates,Screws Or Completed [employer] Description No Information Available Encounters Type Date Location Provider Dx Diagnosis Office Visit 12/14/2019 [facility] Marisa Contreras, S82.201A 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, init for clos fx W19.xxxA Unspecified fall, initial encounter Assessments Date Code Description Provider 12/25/2019 S82.251D Displaced comminuted fracture of shaft of Jett Mcgrath MD right tibia, subsequent encounter for closed fracture with routine healing 12/14/2019 S82.201A Unspecified fracture of shaft of right Marisa Contreras NP tibia, initial encounter for closed fracture 12/14/2019 W19.xxxA Unspecified fall, initial encounter Marisa Contreras NP Plan of Treatment Future Appointment(s):01/02/2020 2:30 pm - Jett Mcgrath MD at [facility] at Gjepdz2112/25/2019 - Jett Mcgrath MDS82.251D Displaced comminuted fracture of shaft of right tibia, subsequent encounter for closed fracture with routine healingNew Medication:Shower Chair - 1 shower chair. Ht : 69" Wt: 140lbsNew Xrays:Lower Leg Right, Ordered: 12/25/19Follow up:1 week Functional Status Description No Information Available Mental Status Description No Information Available Referrals Description No Information Available
--- OUTSIDE RECORDS SUMMARY | 2019-12-27 10:33 | XMS REPORT | Continuity of Care Document ---
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 Medicine Problems Description No Information Available Social History Type Date Description Comments Sex Unknown ETOH Use Currently consumes alcohol Tobacco Use Start: Unknown Patient has never smoked Smoking Status Reviewed: 12/25/19 Patient has never smoked Exercise Type/Frequency Exercises regularly Allergies, Adverse Reactions, Alerts Active Allergies Reaction Severity Comments Date Amoxicillin 12/25/2019 Medications Active Medications SIG Qnty Indications Ordering Date Provider Morphine Sulfate ER take 1 tab every 12 6caps Jett Leigh 12/25/2019 hours as needed for MD Ramila 30mg Caps ER 24HR pain post-operatively Shower Chair 1 shower chair. Ht: 1units S82.251D Jett Leigh 12/25/2019 69" Wt: 140lbs MD Ramila Oxycodone HCL 1 tab by mouth 42tabs Jett Leigh 12/25/2019 5mg every 4-6 hours as MD [...] Available Procedures Date Code Description Status 12/25/2019 60899 Short Leg Cast Completed 12/16/2019 71516 [place] Tibial Shaft FX W Or W/O Fibular FX W/Plates,Screws Or Completed [employer] Description No Information Available Encounters Description No Information Available Assessments Date Code Description Provider 12/25/2019 S82.251D Displaced comminuted fracture of shaft of Jett Mcgrath MD right tibia, subsequent encounter for closed fracture with routine healing Plan of Treatment Future Appointment(s):12/28/2019 8:45 am - Jett Mcgrath MD at [facility] at [id number]/25/2019 - Jett Mcgrath, MDS82.251D Displaced comminuted fracture of shaft of right tibia, subsequent encounter for closed fracture with routine healingNew Medication:Shower Chair - 1 shower chair. Ht : 69" Wt: 140lbsNew Xrays:Lower Leg Right, Ordered: 12/25/19 Functional Status Description No Information Available Mental Status Description No Information Available Referrals Description No Information Available
--- OUTSIDE RECORDS SUMMARY | 2019-12-27 10:33 | XMS REPORT | Continuity of Care Document ---
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 MDD 4 Morphine Sulfate ER take 1 tab every 12 6caps [facility] 12/25/2019 hours as needed for MD Ramila 30mg Caps ER 24HR pain post-operatively Shower Chair 1 shower chair. Ht: 1units S82.251D [facility] 12/25/2019 69" Wt: 140lbs MD Ramila Oxycodone HCL 1 tab by mouth 42tabs [facility] 12/25/2019 5mg every 4-6 hours as [...] Available Procedures Date Code Description Status 12/25/2019 07199 Short Leg Cast Completed 12/16/2019 54660 [place] Tibial Shaft FX W Or W/O Fibular FX W/Plates,Screws Or Completed [employer] Description No Information Available Encounters Type Date Location Provider Dx Diagnosis Office Visit 12/18/2019 [facility] Eric D. S82.201A Unsp fracture of 10:07a yasir Limon M.D.,FACP shaft of right Hospitalists tibia, init for clos fx S82.409A Unsp fracture of shaft of unsp fibula, init for clos fx R52 Pain, unspecified I82.409 Acute embolism and thombos unsp deep vn unsp lower extremity Office Visit 12/17/2019 [facility] Eric Tan S82.201A Unsp fracture 10:07a yasir Limon M.D.,FACP of shaft of Hospitalists right tibia, init for clos fx S82.409A Unsp fracture of shaft of unsp fibula, init for clos fx R52 Pain, unspecified I82.409 Acute embolism and thombos unsp deep vn unsp lower extremity Office Visit 12/16/2019 [facility] Eric Tan S82.201A Unsp fracture 10:06a yasir Limon M.D.,FACP of shaft of Hospitalists right tibia, init for clos fx S82.409A Unsp fracture of shaft of unsp fibula, init for clos fx R52 Pain, unspecified I82.409 Acute embolism and thombos unsp deep vn unsp lower extremity Office Visit 12/14/2019 [facility] Marisa Contreras, S82.201A Unsp fracture 10:04a 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 ,FACP right tibia, initial encounter for closed fracture 12/19/2019 S82.409A Unspecified fracture of shaft of Eric Israel M.D. ,FACP unspecified fibula, initial encounter for closed fracture 12/19/2019 R52 Pain, unspecified Eric Israel M.D.,FACP 12/19/2019 I82.409 Acute embolism and thrombosis of Eric Israel M.D., FACP unspecified deep veins of unspecified lower extremity 12/18/2019 S82.201A Unspecified fracture of shaft of Eric Israel M.D. ,FACP right tibia, initial encounter for closed fracture 12/18/2019 S82.409A Unspecified fracture of shaft of Eric Israel M.D. ,FACP unspecified fibula, initial encounter for closed fracture 12/18/2019 R52 Pain, unspecified Eric Israel M.D.,FACP 12/18/2019 I82.409 Acute embolism and thrombosis of Eric Israel M.D., FACP unspecified deep veins of unspecified lower extremity 12/17/2019 S82.201A Unspecified fracture of shaft of Eric Israel M.D. ,FACP right tibia, initial encounter for closed fracture 12/17/2019 S82.409A Unspecified fracture of shaft of Eric Israel M.D. ,FACP unspecified fibula, initial encounter for closed fracture 12/17/2019 R52 Pain, unspecified Eric Israel M.D.,FACP 12/17/2019 I82.409 Acute embolism and thrombosis of Eric Israel M.D., FACP unspecified deep veins of unspecified lower extremity 12/16/2019 S82.201A Unspecified fracture of shaft of Eric Israel M.D. ,FACP right tibia, initial encounter for closed fracture 12/16/2019 S82.409A Unspecified fracture of shaft of Eric Israel M.D. ,FACP unspecified fibula, initial encounter for closed fracture 12/16/2019 R52 Pain, unspecified Eric Israel M.D.,FACP 12/16/2019 I82.409 Acute embolism and thrombosis of Eric Israel M.D., FACP unspecified deep veins of unspecified lower extremity 12/14/2019 S82.201A Unspecified fracture of shaft of Marisa Contreras NP right tibia, initial encounter for closed fracture 12/14/2019 W19.xxxA Unspecified fall, initial encounter Marisa Contreras NP Plan of Treatment Future Appointment(s):01/02/2020 2:30 pm - Jett Mcgrath MD at [facility] at [id number]/25/2019 - Jett Mcgrath MDS82.251D Displaced comminuted fracture of shaft of right tibia, subsequent encounter for closed fracture with routine healingNew Medication:Shower Chair - 1 shower chair. Ht : 69" Wt: 140lbsNew Xrays:Lower Leg Right, Ordered: 12/25/19Follow up:1 week Functional Status Description No Information Available Mental Status Description No Information Available Referrals Description No Information Available
--- OUTSIDE RECORDS SUMMARY | 2019-12-27 10:33 | XMS REPORT | Continuity of Care Document ---
:1975 External Reference #:[id number] Author Name Eric Israel M.D.,FACP (transmitted by agent of provider Melissa Amaya) Address [address] [place] [address] Care Team Providers Name Role Phone Yas Chavez MD - Internal Care Team Information Tripe Scraper [phone] Medicine Problems Description No Information Available Social [...] Diazepam Take 1 tab by mouth 20tabs [facility] 12/26/2019 2mg Tablets every 6 hours as MD Ramila needed for spasm. MDD 4 Morphine Sulfate ER take 1 tab every 12 6caps [facility] 12/25/2019 hours as needed for MD Ramila 30mg Caps ER 24HR pain post-operatively Shower Chair 1 shower chair. Ht: 1units S82.251D [facility] 12/25/2019 69" Wt: 140lbs MD Ramila Oxycodone HCL 1 tab by mouth 42tabs [facility] 12/25/2019 5mg every 4-6 hours as [...] Available Procedures Date Code Description Status 12/25/2019 30185 Short Leg Cast Completed 12/16/2019 90214 [place] Tibial Shaft FX W Or W/O Fibular FX W/Plates,Screws Or Completed [employer] Description No Information Available Encounters Type Date Location Provider Dx Diagnosis Office Visit 12/19/2019 [facility] Eric Tan S82.201A Unsp fracture of 10:08a yasir Limon M.D.,FACP shaft of right Hospitalists tibia, init for clos fx S82.409A Unsp fracture of shaft of unsp fibula, init for clos fx R52 Pain, unspecified I82.409 Acute embolism and thombos unsp deep vn unsp lower extremity Office Visit 12/18/2019 [facility] Eric Tan S82.201A Unsp fracture 10:07a yasir Limon M.D.,FACP of shaft of Hospitalists right tibia, init for clos fx S82.409A Unsp fracture of shaft of unsp fibula, init for clos fx R52 Pain, unspecified I82.409 Acute embolism and thombos unsp deep vn unsp lower extremity Office Visit 12/17/2019 [facility] Eric Tan S82.201A Unsp fracture 10:07a yasir Limon M.D.,FACP of shaft of Hospitalists right tibia, init for clos fx S82.409A Unsp fracture of shaft of unsp fibula, init for clos fx R52 Pain, unspecified I82.409 Acute embolism and thombos unsp deep vn unsp lower extremity Office Visit 12/16/2019 [facility] Eric Tan S82.201A Unsp fracture 10:06a yasir Limon M.D.,FACP of shaft of Hospitalists right tibia, init for clos fx S82.409A Unsp fracture of shaft of unsp fibula, init for clos fx R52 Pain, unspecified I82.409 Acute embolism and thombos unsp deep vn unsp lower extremity Office Visit 12/14/2019 [facility] Marisa MixonOlivia, S82.201A 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 ,FACP unspecified fibula, initial encounter for [...] 2:30 pm - Jett Mcgrath MD at [facility] at [id number]/25/2019 - Jett Mcgrath, MDS82.251D Displaced comminuted fracture of shaft of right tibia, subsequent encounter for closed fracture with routine healingNew Medication:Shower Chair - 1 shower chair. Ht : 69" Wt: 140lbsNew Xrays:Lower Leg Right, Ordered: 12/25/19Follow up:1 week Functional Status Description No Information Available Mental Status Description No Information Available Referrals Description No Information Available
--- OUTSIDE RECORDS SUMMARY | 2019-12-27 10:33 | XMS REPORT | Continuity of Care Document ---
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 MDD 4 Morphine Sulfate ER take 1 tab every 12 6caps [facility] 12/25/2019 hours as needed for MD Ramila 30mg Caps ER 24HR pain post-operatively Shower Chair 1 shower chair. Ht: 1units S82.251D [facility] 12/25/2019 69" Wt: 140lbs MD Ramila Oxycodone HCL 1 tab by mouth 42tabs [facility] 12/25/2019 5mg every 4-6 hours as MD [...] Available Procedures Date Code Description Status 12/25/2019 99306 Short Leg Cast Completed 12/16/2019 98473 [place] Tibial Shaft FX W Or W/O Fibular FX W/Plates,Screws Or Completed [employer] Description No Information Available Encounters Type Date Location Provider Dx Diagnosis Office Visit 12/18/2019 [facility] Eric D. S82.201A Unsp fracture of 10:07a yasir Limon M.D.,FACP shaft of right Hospitalists tibia, init for clos fx S82.409A Unsp fracture of shaft of unsp fibula, init for clos fx R52 Pain, unspecified I82.409 Acute embolism and thombos unsp deep vn unsp lower extremity Office Visit 12/17/2019 [facility] Eric Tan S82.201A Unsp fracture 10:07a yasir Limon M.D.,FACP of shaft of Hospitalists right tibia, init for clos fx S82.409A Unsp fracture of shaft of unsp fibula, init for clos fx R52 Pain, unspecified I82.409 Acute embolism and thombos unsp deep vn unsp lower extremity Office Visit 12/16/2019 [facility] Eric Tan S82.201A Unsp fracture 10:06a yasir Limon M.D.,FACP of shaft of Hospitalists right tibia, init for clos fx S82.409A Unsp fracture of shaft of unsp fibula, init for clos fx R52 Pain, unspecified I82.409 Acute embolism and thombos unsp deep vn unsp lower extremity Office Visit 12/14/2019 [facility] Marisa Contreras, S82.201A Unsp fracture 10:04a 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 Ht : 69" Wt: 140lbsNew Xrays:Lower Leg Right, Ordered: 12/25/19Follow up:1 week Functional Status Description No Information Available Mental Status Description No Information Available Referrals Description No Information Available
--- OUTSIDE RECORDS SUMMARY | 2019-12-27 10:33 | XMS REPORT | Continuity of Care Document ---
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 MDD 4 Morphine Sulfate ER take 1 tab every 12 6caps [facility] 12/25/2019 hours as needed for MD Ramila 30mg Caps ER 24HR pain post-operatively Shower Chair 1 shower chair. Ht: 1units S82.251D [facility] 12/25/2019 69" Wt: 140lbs MD Ramila Oxycodone HCL 1 tab by mouth 42tabs [facility] 12/25/2019 5mg every 4-6 hours as MD [...] Available Procedures Date Code Description Status 12/25/2019 25870 Short Leg Cast Completed 12/16/2019 96661 [place] Tibial Shaft FX W Or W/O Fibular FX W/Plates,Screws Or Completed [employer] Description No Information Available Encounters Type Date Location Provider Dx Diagnosis Office Visit 12/18/2019 [facility] Eric D. S82.201A Unsp fracture of 10:07a yasir Limon M.D.,FACP shaft of right Hospitalists tibia, init for clos fx S82.409A Unsp fracture of shaft of unsp fibula, init for clos fx R52 Pain, unspecified I82.409 Acute embolism and thombos unsp deep vn unsp lower extremity Office Visit 12/17/2019 [facility] Eric Tan S82.201A Unsp fracture 10:07a yasir Limon M.D.,FACP of shaft of Hospitalists right tibia, init for clos fx S82.409A Unsp fracture of shaft of unsp fibula, init for clos fx R52 Pain, unspecified I82.409 Acute embolism and thombos unsp deep vn unsp lower extremity Office Visit 12/16/2019 [facility] Eric Tan S82.201A Unsp fracture 10:06a yasir Limon M.D.,FACP of shaft of Hospitalists right tibia, init for clos fx S82.409A Unsp fracture of shaft of unsp fibula, init for clos fx R52 Pain, unspecified I82.409 Acute embolism and thombos unsp deep vn unsp lower extremity Office Visit 12/14/2019 [facility] Marisa Contreras, S82.201A Unsp fracture 10:04a 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 Ht : 69" Wt: 140lbsNew Xrays:Lower Leg Right, Ordered: 12/25/19Follow up:1 week Functional Status Description No Information Available Mental Status Description No Information Available Referrals Description No Information Available
--- OUTSIDE RECORDS SUMMARY | 2019-12-27 10:33 | XMS REPORT | Continuity of Care Document ---
:1975 External Reference #:[id number] Author Name Yas Chavez M.D. 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 Onset: 07/28/2019 Social History Type Date Description Comments Sex Unknown Tobacco Use Start: Unknown Never Smoked Cigarettes ETOH Use Currently consumes 5-6 drinks a week. cut alcohol back from 1-2 every night. Tobacco Use Start: Unknown Patient has never smoked Exercise Exercises regularly plays volleyball in Type[employer], runs 15 miles divided in 4 times, 3-5 miles at a time. Allergies, Adverse Reactions, Alerts Active Allergies Reaction Severity Comments Date Amoxicillin difficulty breathing/hives 02/22/2017 Medications Active Medications SIG Qnty Indications Ordering Provider Date No Active Medications Unknown 12/14/2019 History Medications Xifaxan 1 by mouth three 42tabs A04.9 Yas Chavez, 07/28/2019 - 550mg times daily x 2 M.D. 10/12/2019 Tablets weeks. Immunizations CPT Code Status Date Vaccine Lot # [id number] Given 07/28/2019 Influenza Vac, Quadrivalent, Slit Virus, Im [id number] Given 08/07/2018 Influenza Vac, [place] [id number] Given 08/03/2017 Influenza Vac, Quadrivalent, Slit Virus, Im [id number] Vital Signs Date Vital Result Comment 12/14/2019 9:08am BP Systolic 100 mmHg BP Diastolic 70 mmHg Heart Rate 66 /min Body Temperature 98.3 F Respiratory Rate 18 /min Weight 146.00 lb 10/12/2019 9:25am BP Systolic 92 mmHg BP Diastolic 66 mmHg Heart Rate 64 /min Body Temperature 97.7 F Respiratory Rate 16 /min Weight 148.00 lb Results Test Acquired Date Facility Test Result H/L Range Note Laboratory test 07/25/2019 [facility] [place] Lactic Acid 0.5 mmol/L Normal 0.5-2.0 1 finding CBC Auto Diff 07/24/2019 [facility] White Blood 11.1 10^3/uL High 3.5-10.8 Count Red Blood Count 4.38 10^6/uL Normal 3.70-4.87 Hemoglobin 13.8 g/dL Normal 12.0-16.0 Hematocrit 39 % Normal 35-47 Mean Corpuscular Volume 90 fL Normal 80-97 Mean Corpuscular Hemoglobin 31 pg Normal 27-31 Mean Corpuscular HGB Conc 35 g/dL Normal 31-36 Red Cell Distribution Width 13 % Normal 10-15 Platelet Count 227 10^3/uL Normal 150-450 Mean Platelet Volume 7.4 fL Normal 7.4-10.4 Abs Neutrophils 8.5 10^3/uL High 1.5-7.7 Abs Lymphocytes 1.8 10^3/uL Normal 1.0-4.8 Abs Monocytes 0.6 10^3/uL Normal 0-0.8 Abs Eosinophils 0.1 10^3/uL Normal 0-0.6 Abs Basophils 0.0 10^3/uL Normal 0-0.2 Abs Nucleated RBC 0.0 10^3/uL Granulocyte % 76.5 % Lymphocyte % 16.5 % Monocyte % 5.4 % Eosinophil % 1.3 % Basophil % 0.3 % Nucleated Red Blood Cells % 0.0 Laboratory test finding 07/24/2019 [facility] [place] Lactic Acid 0.8 mmol/L Normal 0.5- 2.0 2 Comp Metabolic Panel 07/24/2019 [facility] [place] Sodium 138 mmol/L Normal 135-145 Potassium 3.7 mmol/L Normal 3.5-5.0 Chloride 103 mmol/L Normal 101-111 Co2 Carbon Dioxide 28 mmol/L Normal 22-32 Anion Gap 7 mmol/L Normal 2-11 Glucose 89 mg/dL Normal 70-100 Blood Urea Nitrogen 13 mg/dL Normal 6-24 Creatinine 0.79 mg/dL Normal 0.51-0.95 BUN/Creatinine Ratio 16.5 Normal 8-20 Calcium 9.5 mg/dL Normal 8.6-10.3 Total Protein 6.8 g/dL Normal 6.4-8.9 Albumin 4.3 g/dL Normal 3.2-5.2 Globulin 2.5 g/dL Normal 2-4 Albumin/Globulin Ratio 1.7 Normal 1-3 Total Bilirubin 0.60 mg/dL Normal 0.2-1.0 Alkaline Phosphatase 31 U/L Low 34-104 Alt 24 U/L Normal 7-52 Ast 23 U/L Normal 13-39 Egfr Non- 78.7 >60 Egfr 95.2 >60 3 Laboratory test finding 07/24/2019 [facility] [place] Lipase 19 U/L Normal 11.0-82.0 C Reactive Protein < 1.00 mg/L Normal <8.01 Blood Culture SEE RESULT BELOW 4 Laboratory test finding 07/24/2019 [facility] Poc , Urine Negative Negative 5 Poc Urinalysis 07/24/2019 [facility] Poc Glucose, Urine Negative Negative Poc Bilirubin, Urine Negative Negative Poc Ketone, Urine 1+ Abnormal Negative Poc Specific Manti, Urine 1.020 Normal 1.010-1.030 Poc Blood, Urine Negative Negative Poc pH, Urine 7.0 Normal 5-9 Poc Protein, Urine Negative Negative Poc Urobilinogen, Urine 0.2 Negative Poc Nitrite, Urine Negative Negative Poc Leukocytes, Urine Negative Negative Poc Color, Urine Yellow Poc Clarity, Urine Clear 6 1 [facility] Severe Sepsis and Septic Shock Management Bundle Measure requires all lactic acids initially measuring >2.0 mmol/L be repeated. 2 [facility] Severe Sepsis and Septic Shock Management Bundle Measure requires all lactic acids initially measuring >2.0 mmol/L be repeated. 3 Because ethnic data is not always readily available, this report includes an eGFR for both -Americans and non- Americans. The National Kidney Disease Education Program (NKDEP) does not endorse the use of the MDRD equation for patients that are not between the ages of 18 and 70, are , have extremes of body size, muscle mass, or nutritional status, or are non- or non-. According to the National Kidney Foundation, irrespective of diagnosis, the stage of the disease is based on the level of kidney function: Stage Description GFR(mL/min/1.73 m(2)) 1 Kidney damage with normal or decreased GFR 90 2 Kidney damage with mild decrease in GFR 60-89 3 Moderate decrease in GFR 30-59 4 Severe decrease in GFR 15-29 5 Kidney failure <15 (or dialysis) 4 SEE RESULT BELOW Name: RAGINI MARCUS : [address]: Elpidio Dsouza MD Acct: [id number] Unit: [id number] AGE: 43 Location: ED Re07/24/19 SEX: F Status: DEP ER SPEC: [id number] MELVIN: 07/24/19 [facility] DR: Elpidio Dsouza MD REQ: [id number] RECD: 07/24/19 STATUS: LUIZ ALLEN DR: Yas Chavez MD _ SOURCE: BLOOD,VENO SPDESC: ORDERED: Blood Cult Procedure Result Reported Site Aerobic Culture Bottle Final 07/29/19- 2132 ML No Growth Day 5 Anaerobic Culture Bottle Final 07/29/192130 ML No Growth Day 5 * ML - Main Lab . END OF REPORT DEPARTMENT OF PATHOLOGY, [address] [place] [address] Avel Schmitt M.D. Director [facility] # [id number] 5 Public Weigher: [id number] Test Disclaimer: Positive bacteria, red blood cells, white blood cells, early , low specific gravity, and other factors may cause false positive or negative results. It is recommended to retest unexpected and borderline results with a serum test when applicable. If is still suspected, please repeat test after 48 to 72 hours. 6 Public Weigher: [id number] Procedures Date Code Description Status 05/18/2019 [id number] Colonoscopy Completed 02/10/2019 [id number] Mammogram Completed 08/27/2016 [id number] Mammogram Completed Medical Devices Description No Information Available Encounters Type Date Location Provider Dx Diagnosis Office Visit 10/12/2019 [facility] Office Yas Villar R10.84 Generalized 9:10a Rebeca Chavez abdominal pain C53.9 Malignant neoplasm of cervix uteri, unspecified Office Visit 07/28/2019 3:30p [facility] Office Yas Villar ZEulalio Encounter for Rebeca Chavez immunization R10.84 Generalized abdominal pain C53.9 Malignant neoplasm of cervix uteri, unspecified A04.9 Bacterial intestinal infection, unspecified Assessments Date Code Description Provider 12/14/2019 R10.32 Left lower quadrant pain Yas Chavez M.D. 12/14/2019 N83.209 Unspecified ovarian cyst, unspecified side Yas Chavez M.D. 10/12/2019 R10.84 Generalized abdominal pain Yas Chavez M.D. 10/12/2019 C53.9 Malignant neoplasm of cervix uteri, Yas Chavez M.D. unspecified 07/28/2019 Z23 Encounter for immunization Yas Chavez M.D. 07/28/2019 R10.84 Generalized abdominal pain Yas Chavez M.D. 07/28/2019 C53.9 Malignant neoplasm of cervix uteri, Yas Chavez M.D. unspecified 07/28/2019 A04.9 Bacterial intestinal infection, Yas Chavez M.D. unspecified Plan of Treatment 12/14/2019 - Yas Chavez M.D.R10.32 Left lower quadrant painComments: recommend metamucil or other fiber supplement. Take with plenty of water. recommend osteopathy withDr. Jocelyne Rodriguez. Chu Cabrera [place] is good with intestinal issues.N83.209 Unspecified ovarian cyst, unspecified sideComments:ovarian cysts on both sides. Repeat ultrasound in 6 months.AllNew Medication:No Active Medications -Comments:Medication Management Patient Understands medications she 's taking? Yes No Are there Barriers to Adherence? Yes No Has the patient been asked about herbal supplements and therapies, and OTC meds? Yes No Care Plan1. Patient has been queried about patient's goals/preferences and functional/lifestyle goals at relevant visits. If relevant, describe: na2. Treatment goals as explained to the patient: above3. Are there barriers to meeting treatment goals? Yes No If Yes, please describe:4. Self-Management goals as described to the patient: Yes No Functional Status Description No Information Available Mental Status Description No Information Available Referrals Description No Information Available
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
[2019-12-27] MEDS ORDERED: Lactated Ringers 1000 ML Bag* 1,000 ML IV SCH (11:00)
[2019-12-27] MEDS ORDERED: NS 0.9% 1000 ML** 1,000 ML IV ONE (11:16)
[2019-12-27] MEDS ORDERED: Ondansetron INJ* 2 MG/ML VIAL IV ONE (11:16)
[2019-12-27] MEDS ORDERED: Morphine 10 MG/ML VIAL (1 ml) IV ONE (11:16)
[2019-12-27 11:48] VITALS: BP 110/70
== END 2019-12-27 11:35 | disposition short-term general hospital (02) ==
LOC: UCEAST 10:21
DX: A41.9 Sepsis, unspecified organism (principal); M25.551 Pain in right hip; R30.0 Dysuria; Z88.0 Allergy status to penicillin
CPT/HCPCS: 96360; 96374; 99213; G0463; J2270

== ENCOUNTER 2019-12-27 11:50 | Inpatient (IN) | payer OTHER ==
[2019-12-27] MEDS ORDERED: NS 0.9% 1000 ML** 1,000 ML IV ONE (12:15)
[2019-12-27] MEDS ORDERED: Acetaminophen TAB* 325 MG PO ONE (12:15)
--- NOTE | 2019-12-27 12:18 | ED ---
HPI Febrile Illness - HPI Summary HPI Summary: The patient is a 44-year-old female arriving via ambulance to [facility] Emergency Department accompanied by with a chief complaint of post-surgical complications over the last few days. She reports that she had a diagnosed tibia /fibula fracture on the right on 12/14/2019 with surgery on 12/17/[address] Mcgrath who made an incision on the knee for placement of a fazal. She was discharged on 12/20/2019, and following discharge she felt improved. However, a few days ago she began to develop fevers, chills, and diaphoresis especially at night. She also has noticed arthralgia and cramping in the right lateral hip radiating into the sacrum/lumbar back and up into the shoulder and neck. She attempted to relieve the muscular pain with a foam roller which only aggravated the pain. She had a follow-up appointment with Dr. Mcgrath on 12/25/2019, who replaced the splint with a cast, with no observable streaking that day. There is mild pain in the surgical area, although she sometimes has cramping. She notes a wound to the proximal calf from the previous splint with burning pain that has since improved with cast replacement. Pain is rated 5/10 in severity. She has been taking her pain medications (Oxycodone, Toradol, Morphine) as prescribed, but she does state some dysuria with urination. She was placed on DVT prophylaxis upon discharge following surgery. Past medical history significant for TIA, cervical cancer. Nonsmoker, weekly alcohol use, no substance use. Medications reviewed. Allergies noted. - History of Current Complaint Hx Obtained From: Patient Onset/Duration: Started Days Ago, Still Present Timing: Constant Initial Severity: Mild Current Severity: Moderate Pain Intensity: 5 Pain Scale Used: 0-10 Numeric Aggravating Factors: Other: - foam roller Alleviating Factors: Nothing Associated Signs and Symptoms: Arthralgia - right hip, Chills, Myalgia - right hip into back, shoulder, neck, Night Sweats, Other: - wound to right calf - Additional Pertinent History Primary Care Physician: [id number] - Allergy/Home Medications Allergies/Adverse Reactions: Allergies Allergy/AdvReac Type Severity Reaction Status Date / Time amoxicillin Allergy Intermediate Dizziness Verified 07/24/19 23:05 Home Medications: Home Medications Ascorbic Acid [Vitamin C] 1 tab PO DAILY 07/24/19 [History Confirmed 12/27/19] Calcium Carbonate [Calcium] 1 tab PO DAILY 07/24/19 [History Confirmed 12/27/19] Multivit-Min/Folic Acid/Biotin [Hair, Skin and Nails Caplet] 1 tab PO DAILY 05/05 [History Confirmed 12/27/19] Diazepam TAB(*) [Valium TAB(*)] 2.5 mg PO Q6H PRN #20 tab MDD tab 12/20/19 [Rx Confirmed 12/27/19] Docusate CAP* [Colace Cap*] 100 mg PO BID PRN #90 cap 12/20/19 [Rx Confirmed 09/06] Enoxaparin(*) [Lovenox(*)] 40 mg SUBCUT DAILY #10 syringe 12/20/19 [Rx Confirmed 12/27/19] Ketorolac TAB * [Toradol TAB *] 10 mg PO Q6H PRN #30 tab 12/20/19 [Rx Confirmed 12/27/19] Morphine TAB Extended Rel(*) [Ms Contin(*)] 30 mg PO Q12H #6 tab.er MDD 2 tabs 12/20/19 [Rx Confirmed 12/27/19] oxyCODONE TAB* [Roxycodone TAB 5 mg*] 5 mg PO Q4H PRN tab MDD 10 tabs 12/20/19 [Rx Confirmed 12/27/19] PMH/Surg Hx/FS Hx/Imm Hx Endocrine/Hematology History: Denies: Hx Diabetes Cardiovascular History: Reports: Other Cardiovascular Problems/Disorders - HX OF SWELLING WITH TRAVEL IN BILATERAL FEET AND LEGS Denies: Hx Hypertension, Hx Pacemaker/ICD Respiratory History: Denies: Hx Asthma GI History: Reports: Hx Irritable Bowel - OCCASIONAL Denies: Other GI Disorders History: Denies: Hx Dialysis, Hx Renal Disease Musculoskeletal History: Reports: Hx Tendonitis - PATIENT STATES POSSIBLY 20 YEARS AGO, Other Musculoskeletal History - ALIGNMENT PROBLEMS WITH RIGHT HIP AND BACK Sensory History: Reports: Hx Contacts or Glasses - GLASSES FOR READING Denies: Hx Hearing Aid Opthamlomology History: Reports: Hx Contacts or Glasses - GLASSES FOR READING Neurological History: Reports: Hx Transient Ischemic Attacks (TIA) - 2010 Psychiatric History: Denies: Hx Panic Disorder Comment Only: Hx Anxiety - uses meds prn - Cancer History Cancer Type, Location and Year: cervical ca Hx Chemotherapy: Yes - CERVICAL 2008 3 ROUNDS PLUS LEEPS Hx Radiation Therapy: No - Surgical History Surgery Procedure, Year, and Place: 1996--TMJ SX. 1996--ECTOPIC / LAPRASCOPIC SX [facility]. 1997 ACL LEFT RECONSTRUCTION SX [facility] DR. WILLIS. LEEP PROCEDURES X 4 2007 CERVICAL CA [facility]. 2011--LUMPECTOMY (BENIGN) RIGHT BREAST. TUBAL LIGATION 2004. LEFT INNER THIGH TUMOR REMOVED X 2 DR BENAVIDEZ 2004. RHINOPLASTY/SEPTOPLASTY 2006. RECONSTRUCTION SURGERY ON CHEEK BONES FROM ACCIDENT, 2013 - DR. KLEIN OFFICE. CERVICAL ABLASION DECEMBER 2017 Hx Anesthesia Reactions: No Infectious Disease History: No Infectious Disease History: Denies: Traveled Outside the [place] in Last 30 Days - Family History Known Family History: Positive: Hypertension - Social History Alcohol Use: Weekly Alcohol Amount: 5 drinks per week Hx Substance Use: No Substance Use Type: Reports: None Substance Use Comment - Amount & Last Used: 'on very rare occasions' Hx Tobacco Use: No Smoking Status (MU): Never Smoked Tobacco Review of Systems Positive: Fever, Chills, Skin Diaphoresis Positive: dysuria Positive: Arthralgia - right hip, Myalgia - cramping in right lateral thigh, Other - pain radiating from the right hip into back and up to shoulder and neck Positive: Other - wound to right proximal calf All Other Systems Reviewed And Are Negative: Yes Physical Exam - Summary Physical Exam Summary: VITAL SIGNS: Reviewed. GENERAL: Patient is a well-developed and nourished female who is lying comfortable in the stretcher. Patient is not in any acute respiratory distress. Patient seems warm and dehydrated. HEAD AND FACE: No signs of trauma. No ecchymosis, hematomas or skull depressions. No sinus tenderness. EYES: PERRLA, EOMI x 2, No injected conjunctiva, no nystagmus. EARS: Hearing grossly intact. Ear canals and tympanic membranes are within normal limits. MOUTH: Dry oral mucosa. NECK: Supple, trachea is midline, no adenopathy, no JVD, no carotid bruit, no c- spine tenderness, neck with full ROM. CHEST: Symmetric, no tenderness at palpation. LUNGS: Clear to auscultation bilaterally. No wheezing or crackles. CVS: Regular rate and rhythm, S1 and S2 present, no murmurs or gallops appreciated. ABDOMEN: Soft, non-tender. No signs of distention. No rebound, no guarding, and no masses palpated. Bowel sounds are normal. EXTREMITIES: Wound in right calf in the proximal area without drainage. Surgical wound in right knee is clean, dry, and intact. Tenderness in right hip with decreased ROM secondary to pain. FROM in all other major joints, no edema, no cyanosis or clubbing. BACK: Tenderness in lumbar and sacral spine at palpation NEURO: Alert and oriented x 3. No acute neurological deficits. Speech is normal and follows commands. SKIN: Dry and warm. Triage Information Reviewed: Yes Vital Signs On Initial Exam: Initial Vitals Temp Pulse Resp BP Pulse Ox 100.5 F 85 18 109/68 99 12/27/19 11:54 12/27/19 11:54 12/27/19 11:54 12/27/19 11:54 12/27/19 11:54 Vital Signs Reviewed: Yes Procedures - Sedation Patient Received Moderate/Deep Sedation with Procedure: No Diagnostics - Vital Signs Vital Signs Temp Pulse Resp BP Pulse Ox 12/27/19 11:54 100.5 F 85 18 109/68 99 - Laboratory Result Diagrams: 12/29/19 05:48 12/29/19 05:48 Lab Statement: Any lab studies that have been ordered have been reviewed, and results considered in the medical decision making process. - Radiology Chest XR Radiology Interpretation Completed By: Radiologist Summary of Radiographic Findings: Impression: No acute cardiopulmonary process by radiograph. Dr. Barrett has reviewed this report. - CT Lumbar Spine CT CT Interpretation Completed By: Radiologist Summary of CT Findings: Impression: 1. No CT evidence of discitis/ osteomyelitis. 2. No fracture. 3. No severe osseous encroachment spinal canal or neural foramina. Dr. Barrett has reviewed this report. Pelvic CT CT Interpretation Completed By: Radiologist Summary of CT Findings: Impression: No clear etiology for right hip pain. Dr. Barrett has reviewed this report. Lower Extremity CT CT Interpretation Completed By: Radiologist Summary of CT Findings: Impression: 1. Comminuted fractures of the tibial and fibular diaphyses, status post internal fixation of the tibia. 2. Nondisplaced fracture of the posterior malleolus of the tibia. 3. No appreciable erosion or periosteal reaction. No joint effusions or loculated fluid collections. Dr. Barrett has reviewed this report. Re-Evaluation - Re-Evaluation First Eval Re-Evaluation Time: 15:10 Comment: We discussed all results and plan for admission. Course/Dx - Course Assessment/Plan: The patient is a 44-year-old female arriving via ambulance to [facility] Emergency Department accompanied by with a chief complaint of post- surgical complications over the last few days. She reports that she had a diagnosed tibia/fibula fracture on the right on 12/14/2019 with surgery on [address] Mcgrath who made an incision on the knee for placement of a fazal. She was discharged on 12/20/2019, and following discharge she felt improved. However, a few days ago she began to develop fevers, chills, and diaphoresis especially at night. She also has noticed arthralgia and cramping in the right lateral hip radiating into the sacrum/lumbar back and up into the shoulder and neck. She attempted to relieve the muscular pain with a foam roller which only aggravated the pain. She had a follow-up appointment with Dr. Mcgrath on 2019, who replaced the splint with a cast, with no observable streaking that day. There is mild pain in the surgical area, although she sometimes has cramping. She notes a wound to the proximal calf from the previous splint with burning pain that has since improved with cast replacement. Pain is rated 5/10 in severity. She has been taking her pain medications (Oxycodone, Toradol, Morphine) as prescribed, but she does state some dysuria with urination. She was placed on DVT prophylaxis upon discharge following surgery. Past medical history significant for TIA, cervical cancer. Nonsmoker, weekly alcohol use, no substance use. Medications reviewed. Allergies noted. In the ED course, the patient was placed on a equipment monitor phototypesetting, IV access was obtained, IV fluids started. She was given Tylenol for fever. Past medical records reviewed. Blood test w/o a significant abnormality except for WBCs of 2.9, hematocrit of 34, chloride of 99, AST of 180, AST of 158, CRP of 90.09, and total protein of 6.2. Urinalysis is negative for UTI. RLE CT Impression: 1. Comminuted fractures of the tibial and fibular diaphyses, status post internal fixation of the tibia. 2. Nondisplaced fracture of the posterior malleolus of the tibia. 3. No appreciable erosion or periosteal reaction. No joint effusions or loculated fluid collections. L spine CT Impression: 1. No CT evidence of discitis/ osteomyelitis. 2. No fracture. 3. No severe osseous encroachment spinal canal or neural foramina. Hip CT Impression: No clear etiology for right hip pain. CXR Impression: No acute cardiopulmonary process by radiograph. Brianda Grimaldo at bedside. Recommends a D Dimer. She recommends admission to the hospitalist services. I discussed my physical exam and test results with Dr. Villalobos from the hospitalist services, and she agrees to admit the patient to his services. The patient is hemodynamically stable alert and oriented x 3. - Diagnoses Provider Diagnoses: Hip pain, Back pain, Fever - Provider Notifications Discussed Care Of Patient With: Malcolm De Souza - orthopedics Time Discussed With Above Provider: 14:20 Instructed by Provider To: Other - I discussed the patients case with Dr. De Souza, and he will have MAMADOU Avina, come to the emergency department to assess the patient. Brianda is in the patients room [[id number]]. After evaluating the patient, Brianda recommends medical admission and d-dimer draw at this time as she does not think the patient has a septic joint or needs surgery at this point [1500]. Dr. Villalobos from hospitalist services accepts the patient for admission [[id number]]. Discharge ED - Sign-Out/Discharge Documenting (check all that apply): Patient Departure - Patient accepted for admission by Dr. Villalobos. - Discharge Plan Condition: Stable Disposition: ADMITTED TO [facility] - Billing Disposition and Condition Condition: STABLE Disposition: Admitted to [facility] - Attestation Statements Document Initiated by Matilde: Yes Documenting Scribe: Mandy Armstrong Provider For Whom Matilde is Documenting (Include Credential): Dr. Duke Barrett MD Scribe Attestation: Mandy Yanes, scribed for Dr. Duke Barrett MD on 12/30/19 at 1732. Scribe Documentation Reviewed: Yes Provider Attestation: The documentation as recorded by the Mandy kumari accurately reflects the service I personally performed and the decisions made by me, Dr. Duke Barrett MD Status of Scribe Document: Viewed
[2019-12-27 12:49] LABS: Urine Appearance Clear; Urine Bilirubin Negative (Negative); Urine Blood Negative (Negative); Urine Color Yellow; Urine Glucose Negative (Negative); Urine Ketones Negative (Negative); Urine Nitrite Negative (Negative); Urine Protein Negative (Negative); Urine Specific Gravity 1.003 (1.010-1.030); Urine Urobilinogen Negative (Negative)
[2019-12-27 13:08] LABS: Activated Partial Thrombo Time 34.2 seconds (26.0-38.0); INR 1.12 (0.82-1.09)
[2019-12-27 13:09] LABS: ABS Lymphocytes 0.4 10^3/ul (1.0-4.8); ABS Monocytes 0.3 10^3/ul (0-0.8); ABS Neutrophils 2.1 10^3/ul (1.5-7.7); Albumin 3.7 g/dL (3.2-5.2); Albumin/Globulin Ratio 1.5 (1-3); BUN/Creatinine Ratio 12.6 (8-20); C Reactive Protein 90.09 mg/L (<8.01); Calcium 9.4 mg/dL (8.6-10.3); EGFR African American 84.8 (>60); EGFR Non-African American 70.1 (>60); Eosinophil % 0.4 %; Globulin 2.5 g/dL (2-4); Hematocrit 34 % (35-47); Hemoglobin 12.3 g/dL (12.0-16.0); Lymphocyte % 13.1 %; Mean Corpuscular HGB Conc 36 g/dL (31-36); Mean Corpuscular Hemoglobin 32 pg (27-31); Mean Corpuscular Volume 88 fL (80-97); Mean Platelet Volume 7.2 fL (7.4-10.4); Nucleated Red Blood Cells % 0.1; Platelet Count 167 10^3/uL (150-450); Potassium 3.7 mmol/L (3.5-5.0); Red Blood Count 3.88 10^6 /uL (3.70-4.87); Red Cell Distribution Width 13 % (10-15); Total Bilirubin 0.8 mg/dL (0.2-1.0); Total Protein 6.2 g/dL (6.4-8.9); White Blood Count 2.9 10^3/uL (3.5-10.8)
[2019-12-27 14:25] LABS: Influenza A Molecular Negative (Negative); Influenza B Molecular Negative (Negative)
[2019-12-27 14:38] LABS: Erythrocyte Sed Rate 39 mm/Hr (0-19)
[2019-12-27] MEDS ORDERED: Docusate CAP* 100 MG PO PRN (16:53)
[2019-12-27] MEDS ORDERED: Iohexol 350* (CONTRAST) 500 ML MDV IV ONE (16:55)
[2019-12-27] MEDS ORDERED: Sodium Phosphate ADULT ENEMA* 118 ml bottle PR ONE (16:55)
[2019-12-27] MEDS ORDERED: NS 0.9% 1000 ML** 1,000 ML IV SCH (17:00)
[2019-12-27] MEDS: oxyCODONE TAB* 5 MG TAB PO PRN (17:12)
--- NOTE | 2019-12-27 17:48 | PN ---
Progress Note - Progress Note Date of Service: 12/27/19 Note: See official consult note by Brianda Grimaldo. The patient is POD 11 s/p ORIF R tibia/fibula fracture with intramedullary nail. Patient's injury and perioperative course significant for her degree of pain medication requirement pre- post-operatively and the length of her in-patient stay postoperatively. I saw her in clinic 2 days ago. Her wounds looked great. She was placed in a cast. Her pain was reduced. Zero concerns. Small areas of skin breakdown on the calf and dorsal midfoot, likely from itching. Patient had described R hip-area pain in clinic. That pain has persisted and increased. She also developed a fever today. No clear respiratory or GI symptoms. No numbness or tingling or significant radicular nature of right hip area pain. Patient went to urgent care. Transferred by ambulance to ER. Urgent care staff seemed to think this complaint was related to her surgery. NAD Lower back no significant tenderness No pain with PROM hip RLE: - Incisions c/d/i - Knee no effusion - No pain with PROM knee - Compartments soft - NVID - No pain with PROM toes, ankle - Healing skin about calf and dorsal foot - No sign whatsoever of infection of any of surgical incision sites. No skin erythema. No drainage. No significant swelling or tenderness. Selected Entries 12/27/19 12/27/19 12/27/19 11:54 15:14 15:53 Temperature 100.5 F 100.5 F Pulse Rate 79 Blood Pressure 98/60 (mmHg) O2 Sat by Pulse 100 Oximetry Laboratory Tests 12/27/19 12/27/19 12/27/19 12:32 12:32 12:32 WBC 2.9 L ESR 39 H D-Dimer, Quantitative > 1050 H C-Reactive Protein 90.09 H Influenza A (Rapid) Influenza B (Rapid) 12/27/19 13:46 WBC ESR D-Dimer, Quantitative C-Reactive Protein Influenza A (Rapid) Negative Influenza B (Rapid) Negative CTs lower back, R hip, lower leg negative for new pathology that could be related to FUO. Assessment: 1. POD 11 s/p R tibia ORIF with IMN 2. R hip and lower back discomfort 3. Fever of unknown origin, likely viral illness, respiratory. Fever seems entirely unrelated to recent surgery! Plan: - DSD placed on RLE - Tall boot pending - Pain medication with encouragement of wean down of meds - Fever workup deferred to Hospitalist service - Follow up with me in clinic as previously planned
[2019-12-27] MEDS: Acetaminophen TAB* 325 MG PO PRN (19:37)
[2019-12-27] MEDS: Senna TAB 8.6 mg* TAB PO SCH (19:37)
[2019-12-27] MEDS: Morphine TAB Extended Release (*) 30 MG TAB.ER PO SCH (19:37)
[2019-12-27] MEDS ORDERED: Gadoteridol* (CONTRAST) 279.3 MG/ML 10 ML IV ONE (20:29)
--- NOTE | 2019-12-27 21:34 | CONS ---
CC: Dr. Malcolm De Souza; Dr. Jett Mcgrath * CONSULTATION REPORT: DATE OF CONSULT: 12/27/19 ATTENDING ORTHOPEDIC PROVIDER: Dr. Malcolm De Souza. Please also CC Dr Mcgrath as he performed recent surgery on this patient CHIEF COMPLAINT: Right hip pain, fever and chills x3 days. Recent orthopedic surgery includes right fibular shaft fracture IM nail, closed reduction of the right fibular shaft fracture on 12/16/19. HISTORY OF PRESENT ILLNESS: The patient is a 44-year-old female who presented to [facility] Emergency Room on 12/27/19 with a complaint of right hip pain as well as fever and chills. She had right tibial shaft fracture IM nail and closed reduction of right fibular shaft fracture on 12/16/[address] Jett Mcgrath. She was discharged from the hospital on 12/20/19. She reports that upon arriving home on discharge date, she felt well aside from having several canker sores in her mouth with bleeding from these sores which resolved spontaneously. Since discharge, she has had some right hip and buttock discomfort which initially seemed to be improved with utilizing a foam roller but in the past 3 days this if offering no relief. She did not develop the symptom of fever or chills until 12/23/19. T-max was 103 at urgent care today. Reports that her hip pain has prevented her from being able to get up and move with a walker due to pain in her buttock, which radiates down the posterior of her leg stopping roughly at the back of the knee. She has had no redness, no swelling. She is on a short leg cast, which was placed by Dr. Mcgrath 2 days ago and she has no pain of the lower leg. In terms of this fever and chills, she says she has been waking with night sweats x 3 days. She has had no respiratory symptoms, aside from the canker sores. She has not had any congestion, sore throat, cough or shortness of breath. She has not had a bowel movement in 4 days despite glycerin suppository today, though she does have any nausea or abdominal pain. She does have some burning with urination, UA without infection. Reports that the pain in her buttock sometimes feels as though it radiates up into the base of her lung, but does not report any chest pain. PAST MEDICAL HISTORY: IBS, history of misalignment of her right hip and back, TIA, anxiety and cervical cancer. PAST SURGICAL HISTORY: ORIF of right tibia, cervical ablation in 2018, cheek reconstruction status post accident in 2013, rhinoplasty, septoplasty in 2005, left inner thigh tumor removal x2, tubal ligation in 2004, right breast lumpectomy, TMJ surgery, ectopic with laparoscopic surgery, left ACL reconstruction in 1997, LEEP procedure x4. ALLERGIES: AMOXICILLIN. FAMILY HISTORY: Mother with breast cancer, thyroid disease. Sister with thyroid disease. Father with hypertension and prostate cancer. SOCIAL HISTORY: Denies any tobacco use. Drinks about 2 drinks at a time 5/7 days of the week. Uses marijuana very rarely once a year. 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 REVIEW OF SYSTEMS: General: Positive for fever and chills x3 days. T-max 103 today at urgent care. HEENT: No headache. No changes in vision. No rhinorrhea. No sore throat. Positive for bleeding mucosal lesions consistent with canker sores last week. Cardiac: No chest pain. No history of ME. Respiratory: No shortness of breath. No hemoptysis. No cough. Possible right lower lung discomfort which the patient cannot differentiate from low back pain. GI: No abdominal pain. No nausea, vomiting or diarrhea. Positive constipation. She used a glycerin suppository to produce a bowel movement 4 days ago, took another one today without producing a bowel movement. : Positive for dysuria. No kidney pain. Musculoskeletal: Positive for right hip and buttock pain that radiates down the right leg, not passing knee, possible back pain. The patient finds this difficult to delineate. Neuro: No numbness or tingling. No confusion. Hematology: No history of blood clot. PHYSICAL EXAM: Vital Signs: Temperature 100.5, heart rate 79, oxygen saturation 98%, blood pressure 103/60. General: The patient appears well, she is in no acute distress. She is nontoxic appearing. HEENT: Head is normocephalic, atraumatic. Extraocular movements are intact. Ears: Much wax build up, though there is no erythema, there is no bulging of the TM. Nose: [place] mucosa. No discharge. Mouth and Throat: There are no lesions. There is no erythema or exudate in the throat. Neck: No anterior or posterior cervical lymphadenopathy. Cardiac: S1, S2. No murmur. Respiratory: Clear to auscultation bilaterally throughout all lung kong. GI: Abdomen with normoactive bowel sounds, nondistended, nontender. No guarding. No rigidity. No CVA tenderness. No suprapubic tenderness. Musculoskeletal: Bilateral upper extremities and left lower extremity with skin envelope intact. Nontender to palpation. Flex and extends all joints actively without any pain. Left lower extremity: She is in a short leg cast which I removed in the ER. Just above the short leg cast as well as on the dorsum of the foot, there are abrasions without any surrounding erythema or discharge on the posterior calf. All surgical incisions are well healing, well approximated without any erythema and without any discharge. Buttock: tender to palpation at roughly 2 o'clock. This tenderness radiates down the back of her leg. There is no erythema. There is no fluctuance. She is moderately tender over midline lumbar spine as well as over the right SI joint. There is no obvious erythema or fluctuance. She has full range of motion at the hip. Flexing and extending actively without any pain and able to internally and externally rotate without pain. No pain with log roll. Able to flex and extend at the knee, ankle, and MTPs without any pain. Negative straight leg raise bilaterally. Neuro: Sensation intact to light touch distally throughout upper and lower extremities. Vasc: DP2+ BL. ASSESSMENT AND PLAN: - Status post open reduction and internal fixation of right tibial shaft fracture with IM nail and closed reduction of right fibular shaft fracture on with Dr. Jett Mcgrath without complication. No sign of surgical site infection. - Right hip pain. This seems more consistent with sciatica or lumbar radiculopathy. I have very low suspicion of septic hip joint. Some lumbar spine tenderness, she did have a spinal though I also have very low suspicion for abscess/osteo/discitis based on exam. Despite very low suspicion, it is reasonable with a 103 fever to rule out an epidural abscess which could be done with MRI. - Fever: Likely viral syndrome. Medicine service to rule out other causes. Thus far, ruled out flu, uti, pneumonia, PE, acute fracture Would rec avoiding toradol and tylenol, monitor CBC and CMP She will be admitted to the Medicine Service for work up for fever of unknown origin. Orthopedics will continue to follow her daily. She should be in a fracture boot on the right side and nonweightbearing on the right side. If there is any further concern, please contact Orthopedics, we will follow her daily. Dr. Jett Mcgrath came into the emergency room to see and examine her as well and agrees with this assessment and plan. Dr. De Souza who is ground operations superintendent today was also made aware and agrees with this assessment and plan. MAMADOU BUENO [id number]/[facility] #: [id number] [id number]
--- NOTE | 2019-12-27 22:15 | HP ---
HISTORY AND PHYSICAL: DATE OF ADMISSION: 12/27/19 PROVIDER: Chloe Bustamante NP. PRIMARY CARE PROVIDER: Dr. Chavez. ATTENDING PHYSICIAN: Dr. Carmen Villalobos * (dictated by Chloe Bustamante NP). CHIEF COMPLAINT: Fever, right hip pain. HISTORY OF PRESENT ILLNESS: Ms. Marcus is a 44-year-old female with past medical history significant for TIA, anxiety, cervical cancer, and recent history of tib-fib fracture with ORIF, recent admission from 12/14/19 to , who presented to the emergency room with the complaints of right hip pain and fever. The patient was initially seen at urgent care and sent to the emergency room for further evaluation as she had a fever in urgent care today of 103.7. The patient reports that she developed a fever a few days prior to returning to the emergency room. She reports that she had chills and diaphoresis at night last night and has noticed that she has had cramping in the left lateral hip radiating down the right posterior thigh. The patient does report that she attempted to relieve the muscular pain with a foam roller, which only has made the pain worse. The patient also reports that she followed up with Dr. Mcgrath on 12/25/19. At that time, she had her splint removed and replaced with a cast. She does report that she had an open area on her posterior calf, on which her splint was rubbing but has since started to heal. She denies any drainage or pain from that site. The patient did report that she had some burning sensation with urination. While in the emergency room, the patient had routine lab work drawn. She was found to be leukopenic with a white count of 2.9 and had a T-max in the emergency room of 101.7. The patient had a chest x-ray that showed no acute pneumonia. She had a CT of her hip, lumbar spine, and lower extremity, which showed no evidence of loculated fluid collection or evidence of abscess. Urine was without evidence of urinary tract infection. Due to the patient's fever of unknown origin and right hip pain, Hospital Medicine was asked to see and evaluate her for admission. PAST MEDICAL HISTORY: Significant for: 1. Bilateral upper and lower extremity swelling with traveling. 2. IBS. 3. Tendinitis. 4. Malalignment of the right hip and back. 5. TIA. 6. Anxiety. 7. Cervical cancer. 8. Right tib-fib fracture, status post ORIF with nailing on 12/17/19. PAST SURGICAL HISTORY: 1. Cervical ablation in 2017. 2. Cheek reconstruction, status post an accident in 2013. 3. Rhino and septoplasty in 2005. 4. Left inner thigh tumor removed x2. 5. Tubal ligation in 2004. 6. Right breast lumpectomy in 2011. 7. TMJ in 1996. 8. Ectopic with laparoscopic surgery in 1996. 9. Left ACL reconstruction in 1997. 10. LEEP procedure x4. 11. ORIF of the right tib-fib on 12/17/19. HOME MEDICATIONS: Include: 1. Multivitamin 1 tablet p.o. daily. 2. Ascorbic acid 1 tablet p.o. daily. 3. Calcium 500 mg p.o. daily. 4. Oxycodone 5 mg every 4 hours as needed for pain. 5. Morphine 30 mg every 12 hours. 6. Lovenox 40 mg subcu. 7. Colace 100 mg b.i.d. 8. Diazepam 2.5 mg every 6 hours as needed. ALLERGIES: AMOXICILLIN. FAMILY HISTORY: Mother with a history of breast cancer, diagnosed in 2001, currently in remission; and thyroid disease. Sister with thyroid disease. Father with hypertension and prostate cancer. SOCIAL HISTORY: She denies any tobacco use. Drinks occasionally. Uses marijuana once a year. 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 REVIEW OF SYSTEMS: The patient does report fever and chills with associated diaphoresis. She does complain of right hip and posterior thigh pain, right lower lumbar spine pain. She denies any chest pain or shortness of breath. No cough, hemoptysis. Denies any nausea, vomiting, diarrhea, or abdominal pain. She does report constipation. She denies any gross hematuria or dysuria. She does complain of mild burning with the initiation of urine. She denies any focal weakness, sensory loss, visual complaints, dysphagia, rashes. She does have an open scabbed area to her right posterior thigh and the top of her right foot without surrounding erythema. She does have kee intact to her right knee, right lateral ankle, below her right knee without any surrounding erythema , redness, or drainage. No psychosis or anxiety. PHYSICAL EXAMINATION GENERAL: At this time, Ms. Marcus is a 44-year-old female. She is alert and oriented, resting on the stretcher in the emergency room. She is in no acute distress. VITAL SIGNS: Blood pressure 110/61, heart rate 84, respirations 18, O2 saturation 99%, temperature is 100.0. HEENT: Head is atraumatic, normocephalic. Eyes: EOMs are intact. Sclerae anicteric and not pale. Oral mucosa is moist. NECK: Supple. She has full range of motion. There is no C-spine tenderness. She is able to touch her chin to her chest. There is no nuchal rigidity. LUNGS: Clear to auscultation bilaterally. No wheezes, rales, or rhonchi. CARDIAC: S1, S2. Regular rate and rhythm. No murmurs, rubs, or gallops. ABDOMEN: Soft and nontender. Bowel sounds are present x4. BACK: The patient does have tenderness to palpation to her lumbar spine. EXTREMITIES: She is able to move all 4 extremities. There is no clubbing or cyanosis. Pedal pulses are +2 bilaterally. She does have an open scabbed area to her right upper calf and the top of her right foot without any surrounding erythema, drainage. She does have kee intact to her right knee and right ankle as well as slightly below the right knee without any surrounding erythema or drainage. The cast was removed in the emergency room. Gilberto wrap was applied. NEUROLOGIC: She is awake, alert, oriented x3. Speech is clear. Thought process is intact. There are no gross focal deficits. DIAGNOSTIC STUDIES/LAB DATA: WBCs are 2.9, RBCs 3.98, hemoglobin 12.3, hematocrit is 34, platelet count 167, absolute neutrophils are 2.1, ESR is 39. INR is 1.12, D-dimer is was greater than 1050, APTT is 34.2. Sodium 135, potassium 3.7, chloride 99, carbon dioxide 28, anion gap of 8, BUN is 11, creatinine 0.87, glucose is 98, lactic acid 1.3, calcium 9.4. AST is 180, ALT is 158, alkaline phosphatase is 104. Troponin was 0.00, C-reactive protein was 90.09, BNP 42. Beta hCG was 1.0. Urine was within normal limits with the exception specific gravity was 1.003. Flu A and B were negative. Monospot was negative. She had a chest x-ray, radiologist's impression: No active cardiopulmonary process is evident. She had a CT of the lower leg, radiologist's impression: Comminuted fractures of the tibia and fibula diaphysis, status post internal fixation of the tibia, displaced fracture of the posterior malleolus of the tibia, nondisplaced fracture of the posterior malleolus of the fibula. No appreciable erosion or periosteal reaction. No joint effusion or loculated fluid collections. She had a CT of the lumbar spine. No CT evidence of diskitis or osteomyelitis. No fracture. No severe osseous encroachment of spinal canal or neural foramina. She had a CT of the pelvis: No clear etiology for the right hip pain. ASSESSMENT AND PLAN: Ms. Marcus is a 44-year-old female with past medical history significant for cervical cancer, transient ischemic attack, and anxiety , who was admitted from 12/14/19 to 12/20/19 for a right tib-fib fracture, status post ORIF on 12/17/19, who presented to the emergency room with fever and right hip pain. She will be admitted for: 1. Systemic inflammatory response syndrome. The patient does meet systemic inflammatory response syndrome criteria with a fever of 101.7 and leukopenia with a white count of 2.9. At this time, the patient has no clear source of infection. I suspect her fever of unknown origin could be related to viral. She has had a chest x-ray that shows no acute pneumonia. She had her cast removed in the emergency room. There is no evidence of infection in her right lower leg. Her incision sites are without surrounding erythema or drainage. [place] are intact. She does have a small open area to the top of her right foot without any surrounding erythema or drainage. She does have an open area to her right posterior calf, again without any surrounding erythema or drainage. She had a CT of the lumbar spine that does not show any osteomyelitis or diskitis. She did have a flu swab that was negative. Given the patient's fever of unknown origin and she does have lumbar spine tenderness with palpation, I am going to get an MRI of the lumbar spine to rule out any abscess, diskitis, or osteomyelitis. At this time, we will continue to monitor the patient. If a source of infection is found, we will start her on antibiotics. We will add on a monospot and EBV to rule out underlying viral syndrome. 2. Right tibia-fibula fracture, status post ORIF. I have consulted Orthopedics , who will help manage her care of this repaired fracture during this hospitalization. I will continue her pain meds as previously prescribed, and she will continue on Lovenox 40 mg subcu daily. 3. Constipation. The patient does report she has had no bowel movement in the last 4 days. She did use a glycerin suppository this morning with no results. I will give her Fleet Enema and continue to monitor. We will start her on bowel meds, senna and continue Colace daily. 4. Elevated D-dimer. The patient does have an elevated D-dimer of greater than 1050. I am going to get a CTA of her chest. We will get venous Doppler of her lower extremities to rule out pulmonary embolism and deep venous thromboses due to the patient's recent surgery. 5. Elevated liver functions. The patient does have an elevated AST and ALT. We will repeat her liver functions in the morning. I will also get a hepatitis profile. 6. FEN: She can have a regular diet. 7. Code status: She is a full code. 8. DVT prophylaxis: We will continue her on Lovenox subcu. TIME SPENT: Time spent on this admission was 60 minutes, greater than half that time was spent at the bedside reviewing events leading thus far to her hospitalization, performing physical exam, and reviewing my plan of care. CHLOE BUSTAMANTE, JAYDEN [id number]/[facility] #: [id number] SUSANNA
[2019-12-27] MEDS: Ondansetron INJ* 2 MG/ML VIAL IV PRN (22:37)
[2019-12-28] MEDS: oxyCODONE TAB* 5 MG TAB PO PRN ×3 (00:03→11:20)
[2019-12-28] MEDS: Diazepam TAB(*) 5 MG PO PRN ×3 (02:58→16:36)
[2019-12-28] MEDS: Morphine TAB Extended Release (*) 30 MG TAB.ER PO SCH ×2 (04:42→18:05)
[2019-12-28 06:48] LABS: Albumin 3.3 g/dL (3.2-5.2); Albumin/Globulin Ratio 1.4 (1-3); Globulin 2.3 g/dL (2-4); Indirect Bilirubin 0.5 mg/dL (0.3-1.0); Total Bilirubin 0.7 mg/dL (0.2-1.0); Total Protein 5.6 g/dL (6.4-8.9)
[2019-12-28 08:57] LABS: Hematocrit 31 % (35-47); Hemoglobin 11.1 g/dL (12.0-16.0); Mean Corpuscular HGB Conc 36 g/dL (31-36); Mean Corpuscular Hemoglobin 31 pg (27-31); Mean Corpuscular Volume 88 fL (80-97); Mean Platelet Volume 7.4 fL (7.4-10.4); Platelet Count 151 10^3/uL (150-450); Red Blood Count 3.55 10^6 /uL (3.70-4.87); Red Cell Distribution Width 13 % (10-15); White Blood Count 2.1 10^3/uL (3.5-10.8)
[2019-12-28] MEDS ORDERED: Calcium Carbonate TAB* 1250 MG (CALCIUM 500 MG) PO SCH (09:00)
[2019-12-28] MEDS ORDERED: Calcium Carbonate CHEW TAB* 500 MG (TUMS) PO SCH (09:07)
[2019-12-28] MEDS: Acetaminophen TAB* 325 MG PO PRN (09:12)
[2019-12-28] MEDS: Enoxaparin(*) 40 MG/0.4 ML SYR SUBCUT SCH (09:12)
[2019-12-28] MEDS: Senna TAB 8.6 mg* TAB PO SCH ×2 (09:13→20:14)
--- NOTE | 2019-12-28 12:42 | PN ---
Progress Note - Progress Note Date of Service: 12/28/19 SOAP: Subjective: []Pt seen at bedside. She feels " better" today though R buttock/hip still bothersome. TMAX 100.5 during this admission. No headache, nasal congestion, sore throat, runny nose, chest pain, sob, cough, abd pain, dysuria. Objective: []Gen: nontoxic appearing RLE: Abrasions p calf and dorsum of foot healing no erythema or discharge, nontender. Surg incisions CDI no erythema or discharge. Able to f.e MTPs, ankle , knee without pain. Able to f/e hip 0-110 without pain, negative tracy ( modified to protect recent surg site) test. Tender to palpation buttock and posterior leg without erythema, palpable cords or fluctuance. Mild tenderness with palpation of lumber spine and R SI jt, no erythema or fluctuance. Assessment: []Right hip pain, no sign of surgical site infection Plan: []NWB RLE. Keep incisions and skin breakdown dressed, Tall fracture boot RLE, NWB PT Medical service evaluating fever FU Dr Valentino as previously scheduled. Follow cbc/ cmp - rec avoid toradol and tylenol Vital Signs Temp 98.4 F 12/28/19 12:28 Pulse 64 12/28/19 12:28 Resp 18 12/28/19 12:28 BP 105/68 12/28/19 12:28 Pulse Ox 98 12/28/19 12:28 Intake & Output 12/27/19 12/28/19 12/28/19 18:59 06:59 18:59 Intake Total 1000 0 240 Output Total 100 Balance 1000 0 140 Weight 140 lb 151 lb Intake: IV Fluids 1000 Oral 0 240 Output: Urine 100 Other: Estimated Void Large # Bowel Movements 2 Estimated Stool Amount Medium # Voids 2 Laboratory Last Values WBC 2.1 10^3/uL (3.5-10.8) L 12/28/19 06:04 RBC 3.55 10^6 /uL (3.70-4.87) L 12/28/19 06:04 Hgb 11.1 g/dL (12.0-16.0) L 12/28/19 06:04 Hct 31 % (35-47) L 12/28/19 06:04 MCV 88 fL (80-97) 12/28/19 06:04 MCH 31 pg (27-31) 12/28/19 06:04 MCHC 36 g/dL (31-36) 12/28/19 06:04 RDW 13 % (10-15) 12/28/19 06:04 Plt Count 151 10^3/uL (150-450) 12/28/19 06:04 MPV 7.4 fL (7.4-10.4) 12/28/19 06:04 Neut % (Auto) 74.7 % 12/27/19 12:32 Lymph % (Auto) 13.1 % 12/27/19 12:32 Patrick % (Auto) 11.6 % 12/27/19 12:32 Eos % (Auto) 0.4 % 12/27/19 12:32 Baso % (Auto) 0.2 % 12/27/19 12:32 Absolute Neuts (auto) 2.1 10^3/ul (1.5-7.7) 12/27/19 12:32 Absolute Lymphs (auto) 0.4 10^3/ul (1.0-4.8) L 12/27/19 12:32 Absolute Monos (auto) 0.3 10^3/ul (0-0.8) 12/27/19 12:32 Absolute Eos (auto) 0.0 10^3/ul (0-0.6) 12/27/19 12:32 Absolute Basos (auto) 0.0 10^3/ul (0-0.2) 12/27/19 12:32 Absolute Nucleated RBC 0.0 10^3/ul 12/27/19 12:32 Nucleated RBC % 0.1 12/27/19 12:32 ESR 39 mm/Hr (0-19) H 12/27/19 12:32 INR (Anticoag Therapy) 1.12 (0.82-1.09) H 12/27/19 12:32 APTT 34.2 seconds (26.0-38.0) 12/27/19 12:32 D-Dimer, Quantitative > 1050 ng/mL (Less Than 230) H 12/27/19 12:32 Sodium 135 mmol/L (135-145) 12/27/19 12:32 Potassium 3.7 mmol/L (3.5-5.0) 12/27/19 12:32 Chloride 99 mmol/L (101-111) L 12/27/19 12:32 Carbon Dioxide 28 mmol/L (22-32) 12/27/19 12:32 Anion Gap 8 mmol/L (2-11) 12/27/19 12:32 BUN 11 mg/dL (6-24) 12/27/19 12:32 Creatinine 0.87 mg/dL (0.51-0.95) 12/27/19 12:32 Est GFR ( Amer) 84.8 (>60) 12/27/19 12:32 Est GFR (Non-Af Amer) 70.1 (>60) 12/27/19 12:32 BUN/Creatinine Ratio 12.6 (8-20) 12/27/19 12:32 Glucose 98 mg/dL (70-100) 12/27/19 12:32 Lactic Acid 1.6 mmol/L (0.5-2.0) 12/27/19 16:28 Calcium 9.4 mg/dL (8.6-10.3) 12/27/19 12:32 Total Bilirubin 0.70 mg/dL (0.2-1.0) 12/28/19 06:04 Direct Bilirubin 0.20 mg/dL (0.03-0.18) H 12/28/19 06:04 Indirect Bilirubin 0.5 mg/dL (0.3-1.0) 12/28/19 06:04 AST 107 U/L (13-39) H 12/28/19 06:04 ALT 117 U/L (7-52) H 12/28/19 06:04 Alkaline Phosphatase 88 U/L (34-104) 12/28/19 06:04 Total Creatine Kinase 50 U/L (10-223) 12/27/19 12:32 Troponin I 0.00 ng/mL (<0.03) 12/27/19 12:32 C-Reactive Protein 90.09 mg/L (<8.01) H 12/27/19 12:32 B-Natriuretic Peptide 42 pg/mL (<=100) 12/27/19 12:32 Total Protein 5.6 g/dL (6.4-8.9) L 12/28/19 06:04 Albumin 3.3 g/dL (3.2-5.2) 12/28/19 06:04 Globulin 2.3 g/dL (2-4) 12/28/19 06:04 Albumin/Globulin Ratio 1.4 (1-3) 12/28/19 06:04 Beta HCG, Quant 1.00 mIU/mL 12/27/19 12:32 Urine Color Yellow 12/27/19 12:17 Urine Appearance Clear 12/27/19 12:17 Urine pH 8.0 (5-9) 12/27/19 12:17 Ur Specific [place] 1.003 (1.010-1.030) L 12/27/19 12:17 Urine Protein Negative (Negative) 12/27/19 12:17 Urine Ketones Negative (Negative) 12/27/19 12:17 Urine Blood Negative (Negative) 12/27/19 12:17 Urine Nitrate Negative (Negative) 12/27/19 12:17 Urine Bilirubin Negative (Negative) 12/27/19 12:17 Urine Urobilinogen Negative (Negative) 12/27/19 12:17 Ur Leukocyte Esterase Negative (Negative) 12/27/19 12:17 Urine Glucose Negative (Negative) 12/27/19 12:17 Monoscreen Negative (Negative) 12/27/19 12:32 Influenza A (Rapid) Negative (Negative) 12/27/19 13:46 Influenza B (Rapid) Negative (Negative) 12/27/19 13:46
[2019-12-28] MEDS ORDERED: Iodixanol* (CONTRAST) 320 MG/ML 100 ML SDV IV ONE (13:11)
[2019-12-28] MEDS ORDERED: NS 0.9% 1000 ML** 400 ML IV SCH (13:45)
[2019-12-28] MEDS: Ondansetron INJ* 2 MG/ML VIAL IV PRN (16:17)
--- NOTE | 2019-12-28 16:44 | CONS ---
CONSULTATION REPORT: DATE OF CONSULT: 12/28/19 PATIENT OF: Daksha Pedroza NP and Dr. Chavez. HISTORY OF PRESENT ILLNESS: This is a 44-year-old woman I am asked to evaluate for possible stroke or TIA. She presented with a fall a couple of weeks ago and had an ORIF fixing the right tib-fib fracture on 12/17/19. She was admitted on 12/27/19 yesterday with fever and right hip pain; and then, early this afternoon, a code huynh was called at 1250 because of left visual field cut and dysarthria. Has last been well apparently 1220, half an hour earlier. She was taken directly to a CT scan and CTA, and when she came to the ICU for further evaluation, her symptoms had cleared. Of note, she had in 2009 been evaluated here for a possible TIA with left-sided numbness and had an evaluation which included an MRI scan. PAST MEDICAL HISTORY: She also has a history of cervical cancer, anxiety, malaligned right hip and back, tendinitis, irritable bowel syndrome. She is status post cervical ablation in 2017, cheek reconstruction status post accident in 2013, rhino and septoplasty in 2005, right inner thigh tumor removal x2, tubal ligation in 2004, right breast lumpectomy in 2011, TMJ surgery in 1996, ectopic in 1996, left ACL reconstruction in 1997, LEEP procedure x4, and then the ORIF on 12/17/19. MEDICATIONS: Medicines at home include: 1. Diazepam 2.5 every 6 hours as needed. 2. Colace 100 mg b.i.d. 3. Lovenox 40 mg subcu. 4. Morphine 30 mg every 12 hours. 5. Oxycodone 5 mg every 4 hours as needed. 6. Calcium 500 mg daily. 7. Multivitamin. ALLERGIES: AMOXICILLIN. FAMILY HISTORY: Mother has a history of breast cancer and thyroid disease. Sister with thyroid disease. Father has hypertension and prostate cancer. SOCIAL HISTORY: She denies any tobacco use. Drinks on occasion. Uses marijuana once a year. 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 REVIEW OF SYSTEMS: She has a history of recent chills, diaphoresis with right hip pain. She also complains of headache around her left eye that is intermittent since today. She denies any current weakness. PHYSICAL EXAM: On exam, current temperature is 98.4, pulse 64, respiratory rate 18, blood pressure 105/68. She was having NIH Stroke Scale of 0 at 1:20 when she arrived at the ICU from CT scan. Her exam revealed a woman who is alert and oriented x3, but was slightly slow to answer questions. Cranial nerves II through XII were intact including visual kong. Discs were sharp. She had intact strength in all extremities other than in her right leg status post surgery, I did not push her in that leg. She did wiggle her toes spontaneously in that leg. [id number] is intact. No pronator drift. There is some inconsistency with exam, but with repeat she had no pronator drift. Face is intact to light touch with double simultaneous stimulation. There is no aphasia. Chest: Clear. Cardiovascular: Regular rate and rhythm. Abdomen: Soft. DIAGNOSTIC STUDIES/LAB DATA: Her CT was reviewed and was normal. Her CTA was normal. Labs include a white count of 2.1, hematocrit of 31, platelet count of 151. Sed rate was 39 yesterday. She had an INR of 1.12, PTT is 34. She has had slightly high AST and ALT, currently 107 and 117 today. UA was negative. Serologies were negative. IMPRESSION AND PLAN: Ragini has had some focal neurological deficits that has cleared, associated with some head pain. It is unclear whether her sickness has brought out migrainous symptoms or there is an actual transient ischemic attack. In any event, she is not a tPA candidate, and with a NIH stroke scale of 0, she would not be a tPA candidate no matter what and she does not have an LDL. No further acute intervention is needed. I would have her on a baby aspirin if that is okay with the orthopedist. She needs her statins checked and she needs her echo done today to make sure she does not have a PFO and then we would need to make sure she does not have deep vein thrombosis. I am also recommending hypercoagulable serological workup. Thank you for sharing her case. [id number]/[facility] #: [id number] SUSANNA
--- NOTE | 2019-12-28 17:52 | ECHO ---
*[facility]* [place] [address] Fax #: [phone] Transthoracic Echocardiogram Patient: Ragini Marcus : 1975 Study Date: 12/28/2019 Age: 44 Gender: F HR: 65 bpm Height: 69 in /175.3 cm BSA: 1.83 m^2 Weight: 150.7 lb /68.5 kg BMI: 22.3 kg/m^2 *Peer Support Specialist: * Jennie Tabares RDCS RN *Referring Physician: * Daksha Pedroza *Reading Physician: * Johnny Benites MD Indications: TIA. History: Transient ischemic attack. Cervical cancer. Recent right tib-fib fracture S/P ORIF 12/17/2019. Conclusions Summary: - Left ventricle: Systolic function is normal. The estimated ejection fraction is 55-60%. - Left atrium: The atrium is mildly dilated. - Right atrium: The atrium is mildly dilated. - Atrial septum: No defect or patent foramen ovale is identified by color Doppler or agitated saline. - Mitral valve: There is mild regurgitation. - Tricuspid valve: There is trace to mild regurgitation. - No previous echocardiogram available. Study data: Transthoracic echocardiogram. Procedure: Transthoracic echocardiography was performed. Image quality was fair. A bubble study was performed using agitated normal saline on Images 119 and 120. Complete 2D, spectral Doppler, and color flow Doppler. Location: Bedside. Patient status: Inpatient. Patient room number: 445-01. Rhythm: Normal sinus rhythm. Findings Left ventricle: The cavity size is normal. Wall thickness is mildly increased. Systolic function is normal. The estimated ejection fraction is 55-60%. Wall motion is normal; there are no regional wall motion abnormalities. Left ventricular diastolic function parameters are normal. Right ventricle: The cavity size is normal. Systolic function is normal. Left atrium: The atrium is mildly dilated. Right atrium: The atrium is mildly dilated. Atrial septum: No defect or patent foramen ovale is identified by color Doppler or agitated saline. Bubble study was negative on Images 119 and 120. Mitral valve: The leaflets are mildly thickened. There is no evidence of stenosis. There is mild regurgitation. Aortic valve: The valve is trileaflet. The leaflets are mildly thickened. There is no evidence of stenosis. There is no significant regurgitation. Tricuspid valve: The leaflets are normal thickness. There is trace to mild regurgitation. Pulmonic valve: The valve is structurally normal. There is no evidence of stenosis. There is no significant regurgitation. Aorta: Ascending aorta: The ascending aorta is not dilated. Aortic arch: The aortic arch is not dilated. The aortic root appears normal. Pericardium: There is no significant pericardial effusion. Pulmonary arteries: Not well visualized. Systemic veins: Inferior vena cava: The vessel is mildly dilated. There is (>= 50%) respiratory change in the IVC dimension. Measurements Left ventricle Value Ref Aortic valve Value Ref DAKOTA, LAX 4.7 cm 3.8 - 5.2 Giovanny diam, ED 2.1 cm ---- ESD, LAX 3.2 cm 2.2 - 3.5 Peak v, S 1.5 m/sec ---- FS, LAX 33 % 27 - 45 VTI, S 31.0 cm ---- PW, ED (H) 1.1 cm 0.6 - 0.9 Mean grad, S 6.0 mm Hg ---- IVS/PW, ED 1.13 Peak grad, S 9.0 mm Hg ---- E', lat giovanny, TDI 11.0 cm/sec >=10.0 LVOT/AV, VTI ratio 0.72 -- -- E/e', lat giovanny, 9 TDI Mitral valve Value Ref E', med giovanny, TDI 10.1 cm/sec >=7.0 Peak E 0.94 m/sec -- -- E/e', med giovanny, 9 Peak A 0.5 m/sec ---- TDI Decel time 268 ms ---- E', avg, TDI 10.6 cm/sec PHT 94 ms ---- E/e', avg, TDI 9 <=14 Peak grad, D 3.5 mm Hg -- -- Peak E/A ratio 1.9 ---- LVOT Value Ref MVA, PHT 2.3 cm^2 ---- Peak jose alberto, S 1.12 m/sec VTI, S 22.4 cm Pulmonic valve Value Ref Peak grad, S 5 mm Hg Peak v, S 0.75 m/sec ---- Mean grad, S 3 mm Hg Peak grad, S 2.0 mm Hg ---- Ventricular septum Value Ref Aortic root Value Ref IVS, ED (H) 1.2 cm 0.6 - 0.9 Root diam 3.1 cm <4.0 Right ventricle Value Ref Ascending aorta Value Ref DAKOTA, LAX 2.7 cm AAo AP diam, S 3.3 cm ---- DAKOTA minor ax, A4C (H) 4.0 cm 1.9 - 3.5 mid Aortic arch Value Ref Arch diam 2.2 cm ---- Left atrium Value Ref AP dim, ES (H) 3.90 cm 2.70 - Decending aorta Value Ref 3.80 Meet peak jose alberto 1.1 m/sec ---- ML dim, A4C 4.4 cm SI dim, A4C 6.2 cm Inferior vena cava Value Ref Vol/bsa, ES, 1-p (H) 46 ml/m^2 11 - 40 Diam 2.6 cm ---- A4C Vol/bsa, ES, A/L (H) 38 ml/m^2 16 - 34 Right atrium Value Ref ML dim, ES, A4C (H) 4.6 cm 2.6 - 4.4 SI dim, ES, A4C (H) 5.5 cm 3.4 - 5.3 Estimated RAP 8 mm Hg Legend: (L) and (H) rika values outside specified reference range. Prepared and electronically signed by Johnny Benites MD 12/28/2019 17:52
--- NOTE | 2019-12-28 18:57 | PN ---
Subjective Date of Service: 12/28/19 Interval History: Received call around 1250 that patient was experiencing sudden onset dizziness and nausea after ambulating to bathroom. reports symptoms are similar to prior TIA symptoms. Patient assessed and reports left visual cut and mild speech difficulty. Code Silverio called. Objective Active Medications: Acetaminophen (Tylenol Tab*) 650 mg PO Q6H PRN PRN Reason: MILD PAIN or TEMP > 100.4 Last Admin: 12/28/19 09:12 Dose: 650 mg Calcium Carbonate (Tums*) 500 mg PO DAILY [facility] Diazepam (Valium Tab(*)) 2.5 mg PO Q6H PRN PRN Reason: spasm Last Admin: 12/28/19 16:36 Dose: 2.5 mg Docusate Sodium (Colace Cap*) 100 mg PO BID PRN PRN Reason: CONSTIPATION Enoxaparin Sodium (Lovenox(*)) 40 mg SUBCUT DAILY [facility] Last Admin: 12/28/19 09:12 Dose: 40 mg Sodium Chloride (Ns 0.9% 1000 Ml) 1,000 mls @ 100 mls/hr IV PER RATE [facility] Last Admin: 12/27/19 22:50 Dose: 100 mls/hr Morphine Sulfate (Ms Contin(*)) 30 mg PO Q12H [facility] Last Admin: 12/28/19 18:05 Dose: 30 mg Ondansetron HCl (Zofran Inj*) 4 mg IV Q6H PRN PRN Reason: NAUSEA Last Admin: 12/28/19 16:17 Dose: 4 mg Oxycodone HCl (Roxycodone Tab*) 5 mg PO Q6H PRN PRN Reason: PAIN - MODERATE Last Admin: 12/28/19 11:20 Dose: 5 mg Senna (Senokot 8.6 Mg Tab*) 1 tab PO BID [facility] Last Admin: 12/28/19 09:13 Dose: Not Given Vital Signs - 8 hr 12/28/19 12/28/19 12/28/19 11:20 11:23 12:28 Temperature 98.4 F Pulse Rate 64 Respiratory 14 14 18 Rate Blood Pressure 105/68 (mmHg) O2 Sat by Pulse 98 Oximetry 12/28/19 12/28/19 12/28/19 12:56 14:24 16:17 Temperature 98.2 F 97.2 F 97.4 F Pulse Rate 69 70 70 Respiratory 14 20 16 Rate Blood Pressure 137/71 110/71 123/63 (mmHg) O2 Sat by Pulse 100 99 100 Oximetry 12/28/19 12/28/19 12/28/19 16:36 17:00 17:46 Temperature Pulse Rate Respiratory 20 20 Rate Blood Pressure (mmHg) O2 Sat by Pulse 100 Oximetry 12/28/19 18:05 Temperature Pulse Rate Respiratory 20 Rate Blood Pressure (mmHg) O2 Sat by Pulse Oximetry Oxygen Devices in Use Now: None Appearance: NAD Eyes: PERRLA Ears/Nose/Mouth/Throat: Clear Oropharnyx, Mucous Membranes Moist Neck: NL Appearance and Movements; NL JVP Respiratory: Symmetrical Chest Expansion and Respiratory Effort Cardiovascular: NL Sounds; No Murmurs; No JVD, No Edema Abdominal: NL Sounds; No Tenderness; No Distention Neurological: NL Muscle Strength and Tone Result Diagrams: 12/28/19 06:04 12/27/19 12:32 Additional Lab and Data: Laboratory Results - last 24 hr 12/28/19 12/28/19 06:04 06:04 WBC 2.1 L RBC 3.55 L Hgb 11.1 L Hct 31 L MCV 88 MCH 31 MCHC 36 RDW 13 Plt Count 151 MPV 7.4 Total Bilirubin 0.70 Direct Bilirubin 0.20 H Indirect Bilirubin 0.5 AST 107 H ALT 117 H Alkaline Phosphatase 88 Total Protein 5.6 L Albumin 3.3 Globulin 2.3 Albumin/Globulin Ratio 1.4 Microbiology and Other Data: Microbiology 12/27/19 12:07 Gram Stain - Final Leg Right Wound Culture - Preliminary No Growth Day 1 12/27/19 12:32 Aerobic Blood Culture - Preliminary Blood Venous No Growth Day 1 Anaerobic Blood Culture - Preliminary No Growth Day 1 12/27/19 12:32 Aerobic Blood Culture - Preliminary Blood Venous No Growth Day 1 Anaerobic Blood Culture - Preliminary No Growth Day 1 Assess/Plan/Problems-Billing Assessment: 44 yr old female with pmh of edema after travel, ibs, tendonitis, malalignment of right hip and back, tia, anxiety, cervical cancer, tib fib fx; who presented to ed with fever - Patient Problems (1) AMS (altered mental status) Comment: - Code Silverio called due to dizziness, nausea/vomiting, left visual cut and speech difficulty. - CT, CTA and MRI negative - Assessed by Dr Parrish and [facility] 0 upon his assessment as symptoms had resolved - Negative echo with bubble - Neuro checks - Tele - Baby ASA (okay'd by ortho team) - Lipids and A1c ordered. Hypercoag panel ordered (2) SIRS (systemic inflammatory response syndrome) Comment: - Likely secondary to viral illness - Cont to be leukopenic - No fever since yesterday - Remainder of vital signs stable (3) Fever Comment: - Afebrile - Last recorded fever yesterday (4) Constipation Comment: - Cont bowel regime - Likely secondary to narcotics (5) Transaminitis Comment: - Improving since admission. - 2/2 viral illness? (6) Tibia/fibula fracture Comment: - Management per orthopedics. - In boot (7) DVT prophylaxis Comment: - Lovev[employer]ctorx Attending: Danyelle Lujan
[2019-12-28] MEDS: Aspirin 81 mg CHEW TAB* 81 MG TAB.CHEW PO SCH (20:14)
[2019-12-28 21:00] LABS: ABS Eosinophils 0.1 10^3/ul (0-0.6); ABS Lymphocytes 0.6 10^3/ul (1.0-4.8); ABS Monocytes 0.4 10^3/ul (0-0.8)
[2019-12-28 21:01] LABS: Eosinophil % 4.7 %; Lymphocyte % 27.9 %
[2019-12-29] MEDS: oxyCODONE TAB* 5 MG TAB PO PRN ×2 (04:13→12:32)
[2019-12-29] MEDS: Diazepam TAB(*) 5 MG PO PRN ×2 (05:25→12:33)
[2019-12-29] MEDS: Morphine TAB Extended Release (*) 30 MG TAB.ER PO SCH ×2 (06:19→17:05)
[2019-12-29 06:20] LABS: Hematocrit 30 % (35-47); Hemoglobin 10.8 g/dL (12.0-16.0); Mean Corpuscular HGB Conc 37 g/dL (31-36); Mean Corpuscular Hemoglobin 31 pg (27-31); Mean Corpuscular Volume 86 fL (80-97); Mean Platelet Volume 7.4 fL (7.4-10.4); Platelet Count 148 10^3/uL (150-450); Red Blood Count 3.44 10^6 /uL (3.70-4.87); Red Cell Distribution Width 13 % (10-15); White Blood Count 3.2 10^3/uL (3.5-10.8)
[2019-12-29 06:32] LABS: Albumin 3.3 g/dL (3.2-5.2); Albumin/Globulin Ratio 1.4 (1-3); BUN/Creatinine Ratio 8.5 (8-20); Calcium 8.4 mg/dL (8.6-10.3); EGFR African American 107.2 (>60); EGFR Non-African American 88.6 (>60); Globulin 2.3 g/dL (2-4); HDL Cholesterol 24.2 mg/dL; Potassium 3.3 mmol/L (3.5-5.0); Total Bilirubin 0.7 mg/dL (0.2-1.0); Total Protein 5.6 g/dL (6.4-8.9)
[2019-12-29] MEDS: Ondansetron INJ* 2 MG/ML VIAL IV PRN (09:24)
[2019-12-29] MEDS: Enoxaparin(*) 40 MG/0.4 ML SYR SUBCUT SCH (09:27)
[2019-12-29] MEDS: Aspirin 81 mg CHEW TAB* 81 MG TAB.CHEW PO SCH (09:29)
[2019-12-29] MEDS: Senna TAB 8.6 mg* TAB PO SCH (09:30)
[2019-12-29 09:58] LABS: ABS Eosinophils 0.2 10^3/ul (0-0.6); ABS Lymphocytes 1.1 10^3/ul (1.0-4.8); ABS Monocytes 0.7 10^3/ul (0-0.8); ABS Neutrophils 1.1 10^3/ul (1.5-7.7); Eosinophil % 6.9 %; Lymphocyte % 33.5 %; Nucleated Red Blood Cells % 0.2
[2019-12-29] MEDS ORDERED: Potassium Chlor TAB* 20 MEQ TAB.ER PO ONE (12:18)
[2019-12-29] MEDS ORDERED: Glycerin ADULT SUPP PR PRN (12:35)
[2019-12-29] MEDS ORDERED: Magnesium CITRATE* 300 ML BTL PO PRN (12:35)
--- NOTE | 2019-12-29 14:45 | PN ---
Progress Note - Progress Note Date of Service: 12/29/19 SOAP: Subjective: [Pt seen at bedside. She feels " better" today though R buttock/hip still bothersome. TMAX 100.5 during this admission. No headache, nasal congestion, sore throat, runny nose, chest pain, sob, cough, abd pain, dysuria. No fevers last night. Objective: []Gen: nontoxic appearing RLE: Abrasions p calf and dorsum of foot healing no erythema or discharge, nontender. Surg incisions CDI no erythema or discharge. Able to f.e MTPs, ankle , knee without pain. Able to f/e hip 0-110 without pain, negative tracy ( modified to protect recent surg site) test. Tender to palpation buttock and posterior leg without erythema, palpable cords or fluctuance. Mild tenderness with palpation of lumber spine and R SI jt, no erythema or fluctuance. Vital Signs Temp 98.3 F 12/29/19 11:15 Pulse 73 12/29/19 11:15 Resp 18 12/29/19 12:33 BP 115/72 12/29/19 11:15 Pulse Ox 100 12/29/19 11:15 Intake & Output 12/28/19 12/29/19 12/29/19 18:59 06:59 18:59 Intake Total 240 420 360 Output Total 100 0 Balance 140 420 360 Weight 151 lb Intake: IV Fluids 400 NS (0.9%) 400 IVPB 0 NS (0.9%) 0 Oral 240 20 360 Output: Urine 100 0 Other: # Voids 1 Assessment: []Right hip pain, no sign of surgical site infection Plan: []NWB RLE. Keep incisions and skin breakdown dressed, Tall fracture boot RLE, NWB PT Medical service evaluating fever FU Dr Valentino as previously scheduled. DC from medicine when ready
[2019-12-29 16:37] LABS: Indirect Bilirubin 0.5 mg/dL (0.3-1.0)
[2019-12-29 17:07] VITALS: BP 116/74
[2019-12-29 17:59] LABS: EBV Capsid Ag IgG Ab Positive (Negative); EBV Capsid Ag IgM Ab Negative (Negative); Epstein-Barr Nuclear Antigen Positive (Negative)
--- NOTE | 2019-12-30 00:31 | PN ---
NEUROLOGY FOLLOWUP NOTE: DATE OF FOLLOWUP: 12/29/19 HOSPITALIST: Daksha Pedroza NP LOCATION: She is an inpatient in room 445. CHIEF COMPLAINT: Episode of diminished responsiveness and change in vision. INTERVAL HISTORY: Since yesterday, Ragini feels back to normal. I went over the history in detail lyssa Eid and her significant other who is present. She felt ill and he tried to help her to the ba throom. She stood in front of the toilet and felt confused. He said she looked out of it. She had difficulty getting words out, though she felt she knew what she wanted to say. She was helped back t o the bed. She notes when she looked at her friend, she could only see his lower half out of her lef t eye and not his upper half. She could see fully in all visual quadrants out of her right eye. She noted perhaps some weakness on the left side or just generalized weakness. She felt that she gradua lly got better over 4 hours or more. He said that when her parents came to visit, she was "talking a blue streak." She seemed back to normal by at least 6 hours if not 7 hours. She has had no recurre nce of symptoms since. She said she had a transient ischemic attack 10 years ago. In going over the details, she had an epi sode at work where she felt extremely weak and could not get words out. She may have been weak on th e left side. I reviewed Dr. Luz Murillo's Neurology consultation note from 02/24/10. Symptoms loo k fairly similar. She had left-sided vision changes versus left eye vision changes and left-sided num bness. She was under a lot of stress and had a history of posttraumatic stress disorder and eating d isorder. Her symptoms were in multiple vascular territories. She had a negative cerebrovascular work up and was discharged on aspirin. MEDICATIONS: Reviewed and currently she is on: 1. Aspirin 81 mg once per day. 2. Tums. 3. Diazepam 2.5 mg every 6 hours as needed for spasms. 4. Colace 100 mg p.o. b.i.d. 5. Lovenox 40 mg subcutaneous daily. 6. Morphine sulfate 30 mg p.o. every 12 hours. 7. Oxycodone 5 mg p.o. q.6 hours as needed for pain. 8. Zofran 4 mg IV q.6 hours for nausea. PHYSICAL EXAMINATION: On exam, her most recent temperature is 98.3, last temperature was 100.3 on at 2200 hours. Blood pressure recently is running 115/72 and heart rates in the 70s. Heart t ones are normal. There are no cervical bruits. Neurological Exam: Eye movements are normal. Visual kong are full to confrontation. Pupils are e qual and reactive to light from 3 to 2 mm. Funduscopic exam is normal bilaterally. Facial musculatu re is symmetric. Facial sensation is reported as possibly asymmetric and the patient required quite a bit of time to sort it out and asked me to provide the light touch stimulus multiple times and ulti mately it was equivocal. Speech is clear. There is no drift of the upper extremities. Finger taps are normal in the hands. Raagkr-pv-dojh maneuver is normal bilaterally. Language is fluent. She is slow in delivering her speech. DIAGNOSTIC STUDIES/LAB DATA: Laboratory data from today is notable for white blood cell count up to 3.2 from 2.1 yesterday. Hemoglobin is relatively stable at 10.8 compared to 11.1 yesterday. Platele t count is borderline low at 148,000, slightly lower than yesterday. Chemistries from today notable for potassium of 3.3 and is notable also for an ALT of 110 and AST of 94. MRI of the brain was obtained and I reviewed the images and it looks completely normal. It was inter preted as normal by the radiologist. CT angiogram of the head and neck were interpreted as normal. She had a transthoracic echocardiogram yesterday, interpreted as a normal transthoracic echocardiogra m. There is no evidence of a patent foramen ovale. There was a mildly dilated left atrium and right atrium. IMPRESSION: Impression is that of a fairly nonspecific episode of feeling weak and diminished respon siveness. She had a similar episode 10 years ago and it does not really fit a single vascular territ ory. 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 She is right-handed and she was having difficulty getting word s out, so the whole thing really does not gel anatomically. I think it was again probably a function al episode, possibly triggered by hypoglycemia or hypotension. I do not think she had a transient ischemic attack. I do not think she needs to be on antiplatelet t herapy chronically. I do not think she needs any further neurological workup. [id number]/[facility] #: [id number]
--- NOTE | 2019-12-30 04:22 | DS ---
CC: Dr. Chavez * DISCHARGE SUMMARY: DATE OF ADMISSION: 12/27/19. DATE OF DISCHARGE: 12/29/19. PRIMARY CARE PROVIDER: Dr. Chavez. ATTENDING PHYSICIAN: Dr. Chong * (dictated by Andres Ward NP). PRIMARY DIAGNOSES: 1. Fever. 2. Thirst. 3. Altered mental status. 4. Constipation. 5. Transaminitis. 6. Tib-fib fracture. CONSULTATIONS WHILE IN THE HOSPITAL: 1. Orthopedics, Dr. Jett Mcgrath, MAMADOU Avina, MAMADOU Nicolas. 2. Neurology, Dr. Parrish and Dr. Akhtar. STUDIES WHILE IN THE HOSPITAL: 1. Chest x-ray: No acute cardiopulmonary process by radiograph. 2. Lower extremity CT: Comminuted fracture of the tibial and fibular diaphysis , status post internal fixation of the tibia. Nondisplaced fracture of the posterior malleolus of the tibia. No appreciable erosion or periosteal reaction. No joint effusion or loculated fluid collection. 3. Lumbar spine CT: No CT evidence of diskitis or osteomyelitis. No fracture. No severe osseous encroachment of the spinal canal or neural foramina. 4. Pelvis CT: No clear etiology for right hip pain. 5. Chest/Thorax CTA: No visible acute pulmonary embolism. No aortic dissection. 6. Lumbar spine MRI: No acute abnormality. Degenerative disk disease at L4- L5 and L5-S1 without significant central canal compromise. 7. Venous Doppler study: No sonographic evidence of deep vein thrombosis. 8. Brain CT: There is no evidence for intracranial mass or hemorrhage. 9. Head CTA: No acute large vessel occlusion or severe stenosis in the head or neck. 10. EKG: Normal sinus rhythm. 11. Brain MRI: No acute significant intracranial abnormality. 12. Transthoracic echo: Left ventricle: Systolic function is normal. The estimated ejection fraction is 55% to 60%. Left atrium: The atrium is mildly dilated. Right atrium: The atrium is mildly dilated. Atrial septum: No deficit or patent foramen ovale is identified by the color Doppler or agitated saline. Mitral valve: There is mild regurgitation. Tricuspid valve: There is trace amount of regurgitation. No previous echocardiogram available for comparison. DISCHARGE HOME MEDICATIONS: 1. Multivitamin 1 tab p.o. daily. 2. Calcium 1 tab p.o. daily. 3. Ascorbic acid 1 tab p.o. daily. 4. Oxycodone 5 mg p.o. q.4 hours p.r.n., MDD 10 tabs. 5. Morphine tab extended release 30 mg p.o. q.12 hours, MDD 2 tabs. 6. Lovenox 40 mg subcu daily. 7. Colace 100 mg p.o. b.i.d. p.r.n. 8. Diazepam 2.5 mg p.o. q.6 hours p.r.n., MDD 4 tabs. Discontinued Home Medications: 1. Tylenol 650 mg p.o. q.6 hours p.r.n. 2. Ketorolac 10 mg p.o. q.6 hours p.r.n. HISTORY OF PRESENT ILLNESS/HOSPITAL COURSE: Ms. Marcus is a 44-year-old female with a past medical history significant for TIA, anxiety, cervical cancer , recent tib-fib fracture with ORIF, who presented to the emergency department on 12/27/19 with complaints of fever. Please see history and physical dictated by Chloe Bustamante NP for complete summary of events leading up to hospitalization, but in short, the patient was seen in urgent care due to fever and was sent to the emergency room for further evaluation. While in the emergency room, the patient's cast was removed to evaluate for possible cause of fever. The patient was without sores under cast. The patient had imaging as mentioned above, which also did not reveal a source. The patient's labs were obtained and she was noted to have leukopenia with a white count of 2.9. In addition, she had elevated AST, ALT. The patient also had an elevated D- dimer of greater than 1050. Given these findings, the CTA was obtained and it was negative. The patient also had a ultrasound, which was negative for DVT. Given the patient had fever of unknown origin. She was admitted to the hospital for further evaluation. While in the hospital, the patient was provided with supportive care including IV fluids. The evaluation for fever source continued while in the hospital and a Monospot was obtained and negative. Urine culture was negative. The patient's fever resolved as of 12/27 in the morning. The patient did not develop any other symptoms that would be suggestive of a bacterial infection. The patient's AST, ALT improved. The patient's leukopenia trended up. We suspected that the patient's fever, leukopenia and transaminitis were secondary to a viral infection. Hospital stay was complicated as on 12/28/19, the patient had a sudden onset of visual change and difficulty with speech. These symptoms occurred after the patient ambulated to the bathroom with her and she felt dizzy and vomited. Code huynh was called and the patient was evaluated by neurologist. Imaging was completed as part of a stroke/TIA workup. Imaging as above was unremarkable. The patient additionally had labs including a hemoglobin A1c, which was 4.7 and a lipid panel, which was unremarkable. The patient's initial NIH scale was approximately 6. The patient's NIH scale after CT was 0. Neurology evaluated the patient and reported the patient had a functional neuro exam. It is thought that the patient's sickness has brought out some kind of migrainous symptoms causing the symptoms she presented before code huynh. The patient was on tele and had no ectopy. The patient had neuro checks, which were unremarkable. The patient was evaluated today and she reports she feels well. The patient is requesting discharge. The patient reports she is no longer experiencing any visual changes or speech difficulties. She reports these have not returned since they resolved during code huynh. The patient reports she had not felt feverish or chilled. The patient denies cough, chest pain, shortness of breath , nausea, vomiting, diarrhea, dysuria. A 14-point review of systems was completed and all were negative. The patient is stable for discharge home. PHYSICAL EXAM: Vital Signs: Temp 98.2, HR 67, RR 17, O2 saturation 100% on room air, BP 116/74. General: Ms. Marcus is lying in bed. Appears to be in no acute distress. Appears stated age. HEENT: EOMs intact. PERRLA. Oral mucosa is moist without lesions. Posterior pharynx is clear. Neck: No lymphadenopathy. Respiratory: Symmetrical chest expansion. No accessory muscle use. Lungs: Clear to auscultation. CV: Regular rate and rhythm. S1, S2 present. No murmurs, rubs or gallops. Extremities: Skin is warm and smooth bilaterally. Dressing to right lower extremity is clean, dry and intact. Pedal pulses are 2+ bilaterally. Musculoskeletal: Full range of motion. Abdomen: Soft, nontender to palpation. Bowel sounds normoactive. Neuro: The patient is awake, alert and oriented x4. Cranial nerves II through XII are grossly intact. Moves all extremities well. Motor strength 5/5 in upper and lower extremities. Skin: Grossly intact without lesions. LABORATORY DATA: WBC 3.2, hemoglobin 10.8, hematocrit 30, platelets 148. Sodium 139, potassium 3.3, chloride 104, carbon dioxide 29, BUN 6, creatinine 0.71, glucose 110. Triglycerides 156, cholesterol 147, LDL 92, HDL 24.2. DISCHARGE PLAN/FOLLOWUP: 1. Fever: The patient's last fever was recorded on 12/27/19 at 1929 and was 100.5. Since that time, the patient has been afebrile. The patient has not been tachycardic. The patient has not been tachypneic. The patient's white count is improving. We suspect the fever was secondary to a viral illness. 2. SIRS: As mentioned above, the patient has been afebrile, not tachypneic, not tachycardic, shows no signs of bacterial infection. The patient's symptoms of systemic inflammatory response syndrome have resolved. 3. Altered mental status: As mentioned in the HPI, the patient had a short episode of altered mental status where she was dizzy, nausea, vomiting, left visual cut, speech difficulty. The patient had a negative stroke/TIA workup. It is thought that the symptoms could have been caused by migraine. Part of the stroke/TIA workup was a hypercoagulable panel, which is still pending. I would recommend she follow up with her primary care regarding the results. If needed, the patient should be referred to Hematology. 4. Constipation: The patient should continue her home bowel regimen. It should be noted, the patient was given mag citrate here in the hospital. Her constipation is likely secondary to narcotic use. 5. Transaminitis: The patient's AST/ALT are improving since her admission. Upon admission, AST/ALT were 180 and 158 respectively. Today, they are 94 and 110. We suspect the patient's transaminitis is secondary to viral infection. To be safe, we have instructed the patient to stop Tylenol and Ketoralac until otherwise instructed by primary care provider. It should also be mentioned that I have ordered an acute hepatitis panel and the labs are pending. I would recommend the patient followup with her primary care regarding the results of these tests. 6. Tib-fib fracture: The patient is nonweightbearing to right lower extremity. The patient should continue wearing a boot as instructed by Orthopedics. The patient should keep her follow up with Dr. Mcgrath and follow discharge instructions from her previous hospital stay given to her by orthopedist. 7. Followup: The patient to follow up with her primary care in 1 to 3 days. At her followup with primary care, the patient should have hypercoagulable panel and hepatitis panel results reviewed. In addition, a tic-borne panel was sent and results have not arrived, therefore, I would recommend primary care followup with these results also. The patient should follow up with Dr. Mcgrath as previously scheduled. 8. Education: The patient and were educated on signs and symptoms of new worsening condition, when to return to the emergency department. Both stated understanding. This is a summarized report of a complex medical history and hospital stay. For further details, please see entire medical record. This case has been reviewed with my attending, Dr. Chong, who is in agreement with my plan of care. ANDRES WARD, JAYDEN [id number]/[facility] #: [id number] SUSANNA
[2019-12-30 13:10] LABS: Hepatitis B Surface Antigen Nonreactive (Nonreactive)
[2019-12-30 13:26] LABS: Hepatitis C Antibody Negative (Negative)
[2020-01-01 13:04] LABS: LAC APTT 28 sec (25 - 37); LAC INR 1.1 (0.9-1.1); Prothrombin Time(LAC) 11.6 sec (9.4 - 12.5)
== END 2019-12-29 17:30 | disposition home or self-care (01) | DRG 723 ==
LOC: ED 11:50 → MED 16:51 → MEDTELE 12-28 13:37 → OBSVTOIN 12-28 14:10
PROVIDERS: ADMIT Nurse Practitioner Family; ATTEND Internal Medicine
DX: B34.9 Viral infection, unspecified (principal); K58.9 Irritable bowel syndrome, unspecified; F41.9 Anxiety disorder, unspecified; K59.00 Constipation, unspecified; R74.0 Nonspecific elevation of levels of transaminase and lactic acid dehydrogenase [LDH]; I08.1 Rheumatic disorders of both mitral and tricuspid valves; D72.819 Decreased white blood cell count, unspecified; G43.909 Migraine, unspecified, not intractable, without status migrainosus; M79.604 Pain in right leg; K59.03 Drug induced constipation; T40.605A Adverse effect of unspecified narcotics, initial encounter; Y92.239 Unspecified place in hospital as the place of occurrence of the external cause; W19.XXXD Unspecified fall, subsequent encounter; S82.251D Displaced comminuted fracture of shaft of right tibia, subsequent encounter for closed fracture with routine healing; S82.491D Other fracture of shaft of right fibula, subsequent encounter for closed fracture with routine healing; Z86.73 Personal history of transient ischemic attack (TIA), and cerebral infarction without residual deficits; Z85.41 Personal history of malignant neoplasm of cervix uteri; Z72.89 Other problems related to lifestyle; Z88.1 Allergy status to other antibiotic agents; Z98.51 Tubal ligation status; Z88.0 Allergy status to penicillin
CPT/HCPCS: 36415; 70450; 70496; 70498; 70551; 71046; 71275; 72131; 72158; 72192; 80053; 80061; 80074; 80076; 81003; 81240; 82248; 82550; 83036; 83605; 83880; 84484; 84702; 85025; 85060; 85300; 85303; 85306; 85307; 85379; 85610; 85613; 85652; 85730; 86140; 86147; 86308; 86664; 86665; 87040; 87070; 87205; 87798; 93005; 93306; 93970; 99284; A9270-GY; A9579; G0378; J1650; J2405; Q9967

== ENCOUNTER 2020-05-13 12:08 | Observation (INO) ==
[2020-05-13] MEDS ORDERED: NS 0.9% 1000 ml BAG 1,000 ML IV ONE (13:28)
[2020-05-13] MEDS ORDERED: Ondansetron 4 mg VIAL 2 MG/ML 2 ml VIAL IV ONE (13:55)
[2020-05-13 14:11] LABS: ABS Lymphocytes 1.4 10^3/ul (1.0-4.8); ABS Neutrophils 7.7 10^3/ul (1.5-7.7); Eosinophil % 0.4 %; Hematocrit 39 % (35-47); Hemoglobin 14.1 g/dL (12.0-16.0); Lymphocyte % 13.8 %; Mean Corpuscular HGB Conc 36 g/dL (31-36); Mean Corpuscular Hemoglobin 33 pg (27-31); Mean Corpuscular Volume 91 fL (80-97); Nucleated Red Blood Cells % 0.1; Platelet Count 222 10^3/uL (150-450); Red Blood Count 4.32 10^6 /uL (3.70-4.87); Red Cell Distribution Width 13 % (10-15); White Blood Count 10.2 10^3/uL (3.5-10.8)
[2020-05-13 14:13] LABS: Urine Appearance Clear; Urine Bilirubin Negative (Negative); Urine Blood Negative (Negative); Urine Color Yellow; Urine Glucose Negative (Negative); Urine Ketones 1+ (Negative); Urine Nitrite Negative (Negative); Urine Protein Negative (Negative); Urine Urobilinogen Negative (Negative)
[2020-05-13 14:31] LABS: ALT 10 U/L (7-52); AST 17 U/L (13-39); Albumin 4.4 g/dL (3.2-5.2); Albumin/Globulin Ratio 1.5 (1-3); Alkaline Phosphatase 67 U/L (34-104); Anion Gap 10 mmol/L (2-11); BUN/Creatinine Ratio 12.7 (8-20); Blood Urea Nitrogen 10 mg/dL (6-24); C Reactive Protein 86.09 mg/L (<8.01); CO2 Carbon Dioxide 28 mmol/L (22-32); Calcium 9.7 mg/dL (8.6-10.3); Chloride 100 mmol/L (101-111); EGFR African American 94.8 (>60); EGFR Non-African American 78.3 (>60); Globulin 2.9 g/dL (2-4); Glucose 88 mg/dL (70-100); Lipase < 10 U/L (11.0-82.0); Magnesium 1.9 mg/dL (1.9-2.7); Potassium 3.6 mmol/L (3.5-5.0); Sodium 138 mmol/L (135-145); Total Protein 7.3 g/dL (6.4-8.9)
[2020-05-13 14:33] LABS: HCG Pregnancy 0.63 mIU/mL
[2020-05-13] MEDS ORDERED: Iohexol 300 (CONTRAST) 10 ML SDV IV ONE (15:28)
[2020-05-13] MEDS ORDERED: Morphine 4 MG/ML VIAL (1 ml) IV ONE (15:32)
[2020-05-13] MEDS ORDERED: Ciprofloxacin 400mg IVPREMIX 400 MG/200 ML BAG IVPB ONE (17:39)
[2020-05-13] MEDS ORDERED: metroNIDAZOLE IV 500 MG/100ML 500 MG/100 ML BAG IVPB ONE (17:40)
[2020-05-13] MEDS ORDERED: fentaNYL 250 mcg/5 ml 50 MCG/ML 5 ml VIAL (250 MCG) ONE (17:47)
[2020-05-13] MEDS ORDERED: Lidocaine 2% PF 5 ML VIAL ONE (17:48)
[2020-05-13] MEDS ORDERED: Midazolam 2 mg/2 ml VIAL 1 mg/ml 2 ml VIAL (2 mg) ONE (17:48)
[2020-05-13] MEDS ORDERED: Dexamethasone IV 4 MG/ML VIAL 1 ml VIAL ONE (17:48)
[2020-05-13] MEDS ORDERED: Propofol 10 MG/ML 20 ML BTL ONE ×2 (17:48→20:18)
[2020-05-13] MEDS ORDERED: Bupivacaine 0.25% SDV 30 ML ONE (18:03)
[2020-05-13] MEDS ORDERED: Sterile Water for Inj 10 ML ONE (18:08)
[2020-05-13] MEDS ORDERED: EPHEDrine (Pressors) 50 MG/ML VIAL ONE (18:08)
[2020-05-13] MEDS ORDERED: Rocuronium 50 mg VIAL 10 mg/ml 5 ml VIAL (50 mg) ONE (18:08)
[2020-05-13] MEDS ORDERED: metroNIDAZOLE IV 500 MG/100ML 500 MG/100 ML BAG ONE (18:20)
[2020-05-13] MEDS ORDERED: METRONIDAZOLE 500 MG/100 ML ONE (19:07)
[2020-05-13] MEDS ORDERED: Ondansetron 4 mg VIAL 2 MG/ML 2 ml VIAL ONE (19:24)
[2020-05-13] MEDS ORDERED: Sugammadex 500 MG/5 ML 5 ml VIAL IV PUSH ONE (19:24)
[2020-05-13] MEDS ORDERED: Phenylephrine 40 mcg/mL 10mL (400mcg) SYRINGE ONE (19:31)
[2020-05-13] MEDS ORDERED: fentaNYL 100 mcg/2 ml 50 MCG/ML VIAL IV PRN (21:14)
[2020-05-13] MEDS ORDERED: Naloxone 0.4 mg VIAL 0.4 mg/ml 1 ml VIAL IV PRN (21:14)
[2020-05-13] MEDS ORDERED: Ondansetron 4 mg VIAL 2 MG/ML 2 ml VIAL IV PRN ×2 (21:14→21:24)
[2020-05-13] MEDS ORDERED: DiMENhydriNATE IV 50 mg/ml 1 ml VIAL IV PUSH PRN (21:14)
[2020-05-13] MEDS ORDERED: diPHENhydraMINE IV 50 MG/ML 1 ml VIAL (BENADRYL) IV PRN (21:14)
[2020-05-13] MEDS ORDERED: HYDROmorphone 1 MG/1 ML SYRINGE IV SLOW PU PRN (21:24)
[2020-05-13] MEDS ORDERED: DiMENhydriNATE IV 50 mg/ml 1 ml VIAL ONE (21:25)
[2020-05-13] MEDS ORDERED: Acetaminop/Codeine 300mg/30mg TAB PO PRN (21:28)
[2020-05-13] MEDS ORDERED: Enoxaparin 40 MG/0.4 ML SYR SUBCUT SCH (22:00)
[2020-05-13] MEDS ORDERED: Lactated Ringers 1000 ml BAG 1,000 ML IV SCH (22:00)
[2020-05-14] MEDS ORDERED: metroNIDAZOLE IV 500 MG/100ML 500 MG/100 ML BAG IVPB SCH (02:00)
[2020-05-14] MEDS ORDERED: Levofloxacin 500 MG IVPREMIX 500 MG/100 ML BAG IVPB SCH (06:00)
[2020-05-14 07:44] VITALS: BP 97/55
== END 2020-05-14 09:50 | disposition home or self-care (01) ==
LOC: SSU 12:08 → ED 12:08
PROVIDERS: ADMIT Surgery Surgical Critical Care; ATTEND Surgery Surgical Critical Care

== ENCOUNTER 2023-11-18 14:25 | Observation (INO) ==
[2023-11-18] MEDS ORDERED: Lorazepam PYXIS KEY PRN ×3 (14:29→21:38)
[2023-11-18] MEDS ORDERED: LORazepam 2 mg VIAL 1 ml IV PUSH ONE ×3 (14:29→21:38)
[2023-11-18] MEDS ORDERED: LORazepam 2 mg VIAL 1 ml ONE (14:30)
[2023-11-18] MEDS ORDERED: Iodixanol (CONTRAST) 320 MG/ML 100 ML SDV IV ONE (14:44)
[2023-11-18] MEDS ORDERED: Ondansetron 4 mg VIAL 2 MG/ML 2 ml VIAL IV ONE ×2 (15:00→18:13)
[2023-11-18] MEDS ORDERED: Ondansetron 4 mg VIAL 2 MG/ML 2 ml VIAL ONE ×2 (15:04→18:11)
[2023-11-18 15:08] LABS: ABS Lymphocytes 1.5 10^3/uL (1.0-4.8); ABS Monocytes 0.4 10^3/uL (0.0-0.9); ABS Neutrophils 3.5 10^3/uL (1.5-7.6); ABS Nucleated RBC 0.01 10^3/ul; Eosinophil % 0.4 %; Hematocrit 36.6 % (35-45); Hemoglobin 13.1 g/dL (11.5-14.3); Lymphocyte % 27.5 %; Mean Corpuscular Hemoglobin 31.8 pg (27-33); Mean Corpuscular Hgb Conc 35.9 g/dL (31-36); Mean Corpuscular Volume 88.6 fL (80-97); Mean Platelet Volume 7.3 fL (7.5-11.2); Nucleated Red Blood Cells % 0.1 %/100WBC (0.0-0.8); Platelet Count 232 10^3/uL (150-450); Red Blood Count 4.13 10^6/uL (3.63-4.92); Red Cell Distribution Width 13.1 % (12-17); White Blood Count 5.4 10^3/uL (3.8-11.8)
[2023-11-18 15:22] LABS: Activated Partial Thrombo Time 29.9 seconds (26.0-38.0); INR 0.95 (0.83-1.13)
[2023-11-18 15:41] LABS: Albumin 3.9 g/dL (3.2-5.2); Albumin/Globulin Ratio 1.7 (1-3); Calcium 9.5 mg/dL (8.6-10.3); Creatinine, Serum 0.75 mg/dL (0.51-0.95); Globulin 2.3 g/dL (2-4); HDL Cholesterol 79.3 mg/dL; Indirect Bilirubin 0.4 mg/dL (0.3-1.0); Potassium 3.7 mmol/L (3.5-5.0); Total Bilirubin 0.4 mg/dL (0.2-1.0); Total Protein 6.2 g/dL (6.4-8.9); eGFR CKD-EPI 97.5 (>60)
[2023-11-18] MEDS ORDERED: Morphine 4 MG/ML VIAL (1 ml) IV ONE ×3 (15:47→19:31)
[2023-11-18] MEDS ORDERED: Acetaminophen IV 1 GM/100ML 1,000 MG/100 ML BAG IV ONE (17:37)
[2023-11-18 18:56] LABS: High Sensitivity Troponin 1 Hr 7 pg/mL (<15)
[2023-11-18 21:21] LABS: Urine Appearance Clear; Urine Bilirubin Negative (Negative); Urine Blood Negative (Negative); Urine Color Yellow; Urine Glucose Negative (Negative); Urine Ketones Negative (Negative); Urine Nitrite Negative (Negative); Urine Protein Negative (Negative); Urine Specific Gravity 1.033 (1.002-1.030); Urine Urobilinogen Negative (Negative)
[2023-11-19] MEDS ORDERED: Metoclopramide 5 MG/ML VIAL (10 mg) IV SLOW PU ONE (02:26)
[2023-11-19] MEDS ORDERED: Ondansetron 4 mg VIAL 2 MG/ML 2 ml VIAL IV PRN (05:40)
[2023-11-19 06:26] LABS: Hematocrit 35.1 % (35-45); Hemoglobin 12.6 g/dL (11.5-14.3); Mean Corpuscular Hemoglobin 31.9 pg (27-33); Mean Corpuscular Volume 88.5 fL (80-97); Mean Platelet Volume 7.5 fL (7.5-11.2); Platelet Count 201 10^3/uL (150-450); Red Blood Count 3.96 10^6/uL (3.63-4.92); Red Cell Distribution Width 13.2 % (12-17); White Blood Count 4.3 10^3/uL (3.8-11.8)
[2023-11-19 06:41] LABS: Calcium 8.7 mg/dL (8.6-10.3); Creatinine, Serum 0.77 mg/dL (0.51-0.95); Potassium 3.8 mmol/L (3.5-5.0); eGFR CKD-EPI 94.5 (>60)
[2023-11-19] MEDS ORDERED: Magnesium Sulfate 2 gm BAG 2 GM/50 ML BAG IVPB ONE (11:15)
[2023-11-19 12:40] VITALS: BP 103/64
== END 2023-11-19 12:42 | disposition home or self-care (01) ==
LOC: EDHOLD 14:25 → ED 14:25 → SUATTDRO 23:50 → MEDTELE 11-19 11:10 → EDHOLD 11-19 11:36
PROVIDERS: ADMIT Internal Medicine; ATTEND Hospitalist